=== PATIENT | female | born 1985 | race Hispanic/Latino ===

== ENCOUNTER 2022-06-15 20:53 | Emergency (ER) | payer SELFPAY ==
--- OUTSIDE RECORDS SUMMARY | 2022-06-15 20:58 | XMS REPORT | Continuity of Care Document ---
:1985 Author Organization Formerly [facility] t Address [address] [place] [address] Care Team Providers Name Role Phone Pcp, Patient Does Not Have A Primary Care Physician +[id number] Montez Egan MD Attending Clinician Jaylan WHITEHEAD, Haritha Dahl Attending Clinician Unavailable Only, Ang Db Test Attending Clinician Unavailable Shantel Castro Attending Clinician SHANTEL LEYVA Attending Clinician Unavailable Problems This patient has no known problems. Allergies, Adverse Reactions, Alerts Allergy Allergy Status Severity Reaction(s) Onset Inactive Treating Comm ents Source Name Type Date Date Clinician NO KNOWN Drug Active Univers ALLERGIE Class ity of [facility] Social History Social Habit Start Date Stop Date Quantity Comments Source Exposure to Yes [facility]2 [facility] Sex Assigned At [birth year] [facility] 00:00:00 00:00:00 [facility] Smoking Status Start Date Stop Date Source Unknown if ever smoked [facility] Medications This patient has no known medications. Procedures This patient has no known procedures. Encounters Start End Encounter Admission Attending Care Care Encounter Source Date/Time Date/Time Type Type Clinicians Facility Department ID 2021-07-15 2021-07-15 MARISABEL Hylton [id number] Univers 00:00:00 00:00:00 (Out) Montez ORLON [id number] i [facility] [id number] Donte as [phone] [address] 2021-07-15 2021-07-15 Letter Jignesh MARISABEL [id number] Univers 00:00:00 00:00:00 (Out) Montez Duke GONZALES [id number] i ty of [facility] [id number] Donte as [phone] [address] 2021-07-15 2021-07-15 Telephone MARISABEL Tian [id number] Univers 00:00:00 00:00:00 Haritha ROLON [id number] i ty of [facility] [id number] Donte as [id number] [address] 2021-07-14 2021-07-14 Laboratory Only, Ang Db Test [facility] 1.2.8 [id number] Univers 09:17:57 09:32:57 Only [id number] [facility] [id number] Donte as Abraham?Blea [phone] Fl abhay alarcon [address] [place] [address] Medical Office Building 2021-07-14 2021-07-14 Outpatient R GORDON [facility] [id number] Univers 09:30:00 09:30:00 SHANTEL [facility] Results This patient has no known results.
--- NOTE | 2022-06-15 21:59 | RAD REPORT ---
EXAM DESCRIPTION: RAD - Chest Single View - 06/15/2022 9:41 pm CLINICAL HISTORY: cough Chest pain. COMPARISON: No comparisons FINDINGS: Portable technique limits examination quality. The lungs are grossly clear. The heart is normal in size. No displaced fractures. IMPRESSION: No acute intrathoracic process suspected.
[2022-06-15 22:32] LABS: Urine Blood 1+ (Negative); Urine Glucose Negative (Negative); Urine Protein Negative (Negative)
[2022-06-15 22:40] LABS: Absolute Lymphocytes (CBC) 1.7 K/uL (0.7-4.9); Hematocrit 34.5 % (36.0-45.0); Lymphocytes % 28.5 % (15.3-44.8); MCV 85.7 fL (80-100); MPV 7.9 fL (7.6-11.3); RBC Red Blood Cell Count 4.02 M/uL (3.86-4.86)
[2022-06-15 22:54] LABS: ALT/SGPT 16 U/L (12-78); AST/SGOT 11 U/L (15-37); Albumin 3.5 g/dL (3.4-5.0); Alkaline Phosphatase 48 U/L (45-117); BUN Blood Urea Nitrogen 10 mg/dL (7-18); Bicarbonate 25 mmol/L (21-32); Bilirubin Total 0.2 mg/dL (0.2-1.0); Glomerular Filtration Rate 119 ml/min (=/>90); Glucose Level 115 mg/dL (74-106); Lipase 109 U/L (73-393); Potassium 3.3 mmol/L (3.5-5.1); Protein, Total 7.4 g/dL (6.4-8.2); Sodium Level 134 mmol/L (136-145); Troponin High Sensitivity 3.1 pg/mL (<58.9)
[2022-06-15 22:56] LABS: Bilirubin Direct < 0.1 mg/dL (0-0.2)
[2022-06-15 23:07] LABS: Urine Bacteria <20 /HPF (<20); Urine RBC <5 /HPF (None Seen)
[2022-06-15] MEDS ORDERED: MORPHINE 2 MG/ML SYR ONE (23:13)
[2022-06-15] MEDS ORDERED: ONDANSETRON 4 MG/2 ML VIAL ONE (23:14)
[2022-06-15] MEDS ORDERED: NA CHLORIDE 0.9% 1,000 ML ONE (23:14)
[2022-06-15] MEDS ORDERED: FAMOTIDINE 20 MG/2 ML VIAL IV ONE (23:14)
--- NOTE | 2022-06-16 07:20 | EKG ---
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
[2022-06-16 08:15] VITALS: TEMP 99.3; O2SAT 100
[2022-06-16 08:23] VITALS: BP 122/80
--- NOTE | 2022-06-16 10:39 | EDPHYS ---
Physician Documentation [facility] Name: Jennifer Stoddard Age: 36 yrs Sex: Female : 1985 Arrival Date: 06/15/2022 Time: 20:55 Bed 24 Private MD: ED Physician Norman Luther HPI: 06/15 21:42 This 36 yrs old Female presents to ER via Ambulatory with complaints of Breathing rn Difficulty, Fever, Headache. 21:42 The patient has shortness of breath at rest. Onset: The symptoms/episode began/occurred rn today. Duration: The symptoms are intermittent. 21:42 The patient's shortness of breath is aggravated by coughing. Associated signs and rn symptoms: Pertinent positives: non-productive cough, fever, Pertinent negatives: hemoptysis, loss of consciousness. Severity of symptoms: At their worst the symptoms were mild in the emergency department the symptoms are unchanged. The patient has not experienced similar symptoms in the past. The patient has not recently seen a physician. Pt reports thinks has COVID, has felt sick for 4 days, thought was getting better but feels SOB and more weakness today. No hemoptysis. Reports mother with COVID last week. NO hx of DVT/PE. No chronic lung problems. . 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 - Social history:: Smoking status: Patient denies any tobacco usage or history of. Patient/guardian denies using alcohol. - Family history:: not pertinent. - Hospitalizations: : No recent hospitalization is reported. 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 Eyes: Periorbital areas with no swelling, redness, or edema. Cardiovascular: Regular rate and rhythm. No pulse deficits. Respiratory: No increased work of breathing, no retractions or nasal flaring. Abdomen/GI: Soft, non-tender Skin: Warm, dry MS/ Extremity: Pulses equal, no cyanosis. Neuro: Awake and alert, GCS 15 22:20 ECG was reviewed by the Attending Physician. rn Vital Signs: 21:11 BP 136 / 92; Pulse 92; Resp 16; Temp 99.3(O); Pulse Ox 100% on R/A; Weight 58.97 kg; ld1 Height 5 ft. 4 in. (162.56 cm); Pain 10/10; 22:30 BP 123 / 93; Pulse 96; Resp 16; Pulse Ox 100% on R/A; jb4 06/16 00:00 BP 122 / 80; Pulse 81; Resp 16; Pulse Ox 100% on R/A; jb4 06/15 21:11 Body Mass Index 22.31 (58.97 kg, 162.56 cm) ld1 MDM: 06/15 21:03 Patient medically screened. rn 23:34 Differential diagnosis: Bronchitis pneumonia, Pneumothorax cholelithiasis, rn cholecystitis, viral syndrome, dehydration. Data reviewed: vital signs, nurses notes, lab test result(s), radiologic studies, plain films, ultrasound, and as a result, I will discharge patient. Counseling: I had a detailed discussion with the patient and/or guardian regarding: the historical points, exam findings, and any diagnostic results supporting the discharge/admit diagnosis, lab results, radiology results, the need for outpatient follow up, to return to the emergency department if symptoms worsen or persist or if there are any questions or concerns that arise at home. Response to treatment: the patient's symptoms have mildly improved after treatment, and as a result, I will discharge patient. Special discussion: Based on the patient's Hx, exam, and Dx evaluation, there is no indication for emergent surgery or inpatient Tx. It is understood by the patient/guardian that if the Sx's persist or worsen they need to return immediately for re-evaluation. I discussed with the patient/guardian in detail that at this point there is no indication for admission to the hospital. It is understood, however, that if the symptoms persist or worsen the patient needs to return immediately for re-evaluation. ED course: No acute findings on CXR or ultrasound. Normal WBC. Normal LFTs and lipase. COVID neg. Possibly gastritis vs ulcer vs GERD vs viral syndrome.. 06/15 21:10 Order name: SARS-COV-2 RT PCR (Document "Date of Onset" if Symptomatic) 06/15 22:32 Order name: Urine Dipstick-Ancillary; Complete Time: 22:36 [facility] 06/15 22:33 Order name: Basic Metabolic Panel; Complete Time: 23:05 [facility] 06/15 22:33 Order name: Liver (Hepatic) Function; Complete Time: 23:05 [facility] 06/15 22:33 Order name: Troponin High Sensitivity; Complete Time: 23:05 [facility] 06/15 22:33 Order name: Lipase; Complete Time: 23:05 [facility] 06/15 22:33 Order name: CBC with Automated Diff; Complete Time: 22:48 [facility] 06/15 22:33 Order name: SARS-COV-2 RT PCR; Complete Time: 23:34 [facility] 06/15 21:10 Order name: IV Start; Complete Time: 22:33 06/15 21:10 Order name: Urine Dipstick-Ancillary (obtain specimen); Complete Time: 22:33 06/15 21:10 Order name: Urine Test (obtain specimen); Complete Time: 22:33 06/15 21:10 Order name: EKG; Complete Time: 08:25 06/15 21:10 Order name: EKG - Nurse/Tech; Complete Time: 21:45 06/15 21:15 Order name: Chest Single View; Complete Time: 22:12 [facility] 06/15 22:34 Order name: Abdomen Exam Limited [facility] 06/15 22:35 Order name: Urine Microscopic Only; Complete Time: 23:34 [facility] 06/15 22:41 Order name: Urine --Ancillary (enter results) mw2 EC:20 Rate is 90 beats/min. Rhythm is regular. QRS Firth is Normal. OR interval is normal. QRS rn interval is normal. QT interval is normal. No Q waves. T waves are Normal. No ST changes noted. Clinical impression: Normal ECG. Interpreted by me. Reviewed by me. Administered Medications: 23:19 Drug: NS 0.9% 1000 ml Route: IV; Rate: 1000 ml; Site: right antecubital; jb4 06/16 00:20 Follow up: Response: No adverse reaction; Marked relief of symptoms; IV Status: jb4 Completed infusion 06/15 23:19 Drug: Pepcid (famotidine) 20 mg Route: IVP; Site: right antecubital; jb4 06/16 00:20 Follow up: Response: No adverse reaction; Marked relief of symptoms jb4 06/15 23:19 Drug: morphine 2 mg Route: IVP; Infused Over: 4 mins; Site: right antecubital; 4 06/16 00:20 Follow up: Response: No adverse reaction; Marked relief of symptoms; RASS: Alert and jb4 Calm (0) 06/15 23:19 Drug: Zofran (Ondansetron) 4 mg Route: IVP; Site: right antecubital; 4 06/16 00:20 Follow up: Response: No adverse reaction; Marked relief of symptoms jb4 Disposition Summary: 06/15/22 23:39 Discharge Ordered Location: Home rn Problem: new rn Symptoms: have improved rn Condition: Stable rn Diagnosis - Fever, unspecified rn - Abdominal pain, unspecified rn - Dyspnea, unspecified rn Followup: rn - With: Private Physician - When: As needed - Reason: Recheck today's complaints, Re-evaluation by your physician Discharge Instructions: - Discharge Summary Sheet rn - Abdominal Pain, Adult rn - Fever, Adult rn - Pain Without a Known Cause rn - Shortness of Breath, Adult rn Forms: - Medication Reconciliation Form rn - Thank You Letter rn - Antibiotic civil litigation attorney - Prescription Opioid Use rn Prescriptions: - ondansetron 4 mg Oral tablet,disintegrating - take 1 tablet by ORAL route every 8 hours As needed; 15 tablet; Refills: 0, rn Product Selection Permitted - Protonix 40 mg Oral Tablet - take 1 tablet by ORAL route once daily; 30 tablet; Refills: 0, Product rn Selection Permitted - Tramadol 50 mg Oral Tablet - take 1 tablet by ORAL route every 8 hours as needed; 12 tablet; Refills: 0, rn Product Selection Permitted Signatures: Dispatcher [employer] Norman Figueroa MD MD rn Bryson Quentin, RN RN jb4 Linsey Keys, RN RN ld1
--- NOTE | 2022-06-16 10:39 | ER ---
Nurse's Notes [facility] Name: Jennifer Stoddard Age: 36 yrs Sex: Female : 1985 Arrival Date: 06/15/2022 Time: 20:55 Bed 24 Private MD: Diagnosis: Fever, unspecified;Abdominal pain, unspecified;Dyspnea, unspecified Presentation: 06/15 21:11 Chief complaint: Chief complaint: Patient states: Mid epigastric pain since this ld1 morning. Headache, fever, nausea, SOB. 21:11 Coronavirus screen: Client presents with at least one sign or symptom that may indicate ld1 coronavirus-19. Standard/surgical mask placed on the client. Ebola Screen: No symptoms or risks identified at this time. Initial Sepsis Screen: Does the patient meet any 2 criteria? No. Patient's initial sepsis screen is negative. Does the patient have a suspected source of infection? No. Patient's initial sepsis screen is negative. Risk Assessment: Do you want to hurt yourself or someone else? Patient reports no desire to harm self or others. Onset of symptoms was June 15, 2022 at 21:12. 21:11 Method Of Arrival: Ambulatory ld1 21:11 Acuity: ANIVAL 3 ld1 Triage Assessment: 21:12 General: Appears in no apparent distress. uncomfortable, Behavior is calm, cooperative, ld1 appropriate for age. Pain: Complains of pain in epigastric area Pain does not radiate. Pain currently is 10 out of 10 on a pain scale. EENT: No signs and/or symptoms were reported regarding the EENT system. Neuro: Level of Consciousness is awake, alert, obeys commands, Oriented to person, place, time, situation, Appropriate for age. Cardiovascular: Capillary refill < 3 seconds Patient's skin is warm and dry. Respiratory: Reports shortness of breath at rest on exertion Airway is patent Respiratory effort is even, unlabored, Onset: The symptoms/episode began/occurred today, the patient has mild shortness of breath. GI: Abdomen is flat, non-distended. : No signs and/or symptoms were reported regarding the genitourinary system. Derm: No signs and/or symptoms reported regarding the dermatologic system. Musculoskeletal: No signs and/or symptoms reported regarding the musculoskeletal system. 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 - Social history:: Smoking status: Patient denies any tobacco usage or history of. Patient/guardian denies using alcohol. - Family history:: not pertinent. - Hospitalizations: : No recent hospitalization is reported. Screenin:17 Abuse screen: Denies threats or abuse. Nutritional screening: No deficits noted. jb4 Tuberculosis screening: No symptoms or risk factors identified. Fall Risk None identified. Assessment: 22:17 General: Appears in no apparent distress. uncomfortable, Behavior is calm, cooperative, jb4 appropriate for age. Pain: Complains of pain in epigastric area Pain radiates to anterior aspect of left upper chest Pain currently is 10 out of 10 on a pain scale. Neuro: Level of Consciousness is awake, alert, obeys commands, Oriented to person, place, time, situation. Cardiovascular: Patient's skin is warm and dry. Rhythm is sinus rhythm. Respiratory: Airway is patent Respiratory effort is even, unlabored, Respiratory pattern is regular, symmetrical. GI: Pt is actively vomiting Stomach contents are bright red. Provider notified. Reports upper abdominal pain. Derm: Skin is intact, Skin is pink, warm \T\ dry. Musculoskeletal: Circulation, motion, and sensation intact. Range of motion: intact in all extremities. 23:19 Reassessment: Patient appears in no apparent distress at this time. Patient and/or jb4 family updated on plan of care and expected duration. Pain level reassessed. Patient is alert, oriented x 3, equal unlabored respirations, skin warm/dry/pink. 06/16 00:03 Reassessment: Patient appears in no apparent distress at this time. Patient and/or jb4 family updated on plan of care and expected duration. Pain level reassessed. Patient is alert, oriented x 3, equal unlabored respirations, skin warm/dry/pink. D/c pending completion of IV fluilds. 00:18 Reassessment: Patient appears in no apparent distress at this time. Patient and/or jb4 family updated on plan of care and expected duration. Pain level reassessed. Patient is alert, oriented x 3, equal unlabored respirations, skin warm/dry/pink. Pt reports that the pain is better and the nausea has also improved. Vital Signs: 06/15 21:11 BP 136 / 92; Pulse 92; Resp 16; Temp 99.3(O); Pulse Ox 100% on R/A; Weight 58.97 kg; ld1 Height 5 ft. 4 in. (162.56 cm); Pain 10/10; 22:30 BP 123 / 93; Pulse 96; Resp 16; Pulse Ox 100% on R/A; jb4 06/16 00:00 BP 122 / 80; Pulse 81; Resp 16; Pulse Ox 100% on R/A; jb4 06/15 21:11 Body Mass Index 22.31 (58.97 kg, 162.56 cm) ld1 ED Course: 06/15 20:55 Patient arrived in ED. ag3 21:03 Norman Luther MD is Attending Physician. rn 21:12 Triage completed. ld1 21:12 Arm band placed on right wrist. ld1 21:29 Quentin Singleton, RN is Primary Nurse. jb4 21:43 Chest Single View In Process Unspecified. EDMS 22:17 Patient has correct armband on for positive identification. Bed in low position. Call jb4 light in reach. Side rails up X 1. Client placed on continuous cardiac and pulse oximetry monitoring. NIBP monitoring applied. playground monitor on. 22:17 Initial lab(s) drawn, by co, sent to lab. Urine collected: clean catch specimen, clear. jb4 Inserted saline lock: 20 gauge in right antecubital area, using aseptic technique. Blood collected. 22:50 Abdomen Exam Limited In Process Unspecified. EDMS 08 00:19 No provider procedures requiring assistance completed. IV discontinued, intact, jb4 bleeding controlled, No redness/swelling at site. Pressure dressing applied. Administered Medications: 06/15 23:19 Drug: NS 0.9% 1000 ml Route: IV; Rate: 1000 ml; Site: right antecubital; jb4 06/16 00:20 Follow up: Response: No adverse reaction; Marked relief of symptoms; IV Status: jb4 Completed infusion 06/15 23:19 Drug: Pepcid (famotidine) 20 mg Route: IVP; Site: right antecubital; jb4 06/16 00:20 Follow up: Response: No adverse reaction; Marked relief of symptoms jb4 06/15 23:19 Drug: morphine 2 mg Route: IVP; Infused Over: 4 mins; Site: right antecubital; jb4 06/16 00:20 Follow up: Response: No adverse reaction; Marked relief of symptoms; RASS: Alert and jb4 Calm (0) 06/15 23:19 Drug: Zofran (Ondansetron) 4 mg Route: IVP; Site: right antecubital; jb4 06/16 00:20 Follow up: Response: No adverse reaction; Marked relief of symptoms jb4 Medication: 00:00 VIS not applicable for this client. jb4 Outcome: 06/15 23:39 Discharge ordered by . rn 06/16 00:19 Discharged to home ambulatory. jb4 Condition: stable Discharge instructions given to patient, Instructed on discharge instructions, follow up and referral plans. medication usage, Demonstrated understanding of instructions, follow-up care, medications, Prescriptions given X 3. 00:20 Patient left the ED. jb4 Signatures: Dispatcher [employer] EDMS Norman Luther MD MD rn Bryson, James, RN RN jb4 Izzy Shukla 3 Linsey Keys RN RN ld1 Corrections: (The following items were deleted from the chart) 06/15 21:12 21:11 Chief complaint: ld1 ld1
--- NOTE | 2022-06-16 14:24 | RAD REPORT ---
EXAM DESCRIPTION: US - Abdomen Exam Limited CLINICAL HISTORY: 36 years Female gallbladder COMPARISON: No prior exams provided for comparison. TECHNIQUE: Real-time and rose scale sonographic imaging of the right upper quadrant was performed. FINDINGS: The gallbladder is normal without gallstones, wall thickening, or pericholecystic fluid. N o sonographic Hendrix's sign was elicited during scanning. The common bile duct is within normal limit s, measuring 3.5 mm in diameter. There is no intrahepatic biliary ductal dilatation. Visualized portions of the liver are normal. IMPRESSION: No evidence of cholecystitis or biliary dilatation. Electronically signed by: Barbara Cavanaugh MD 06/15/2022 11:09 PM CDT Due to temporary technical issues with the PACS/Fluency reporting system, reports are being signed by the in house radiologists without review as a courtesy to insure prompt reporting. The interpreting radiologist is fully responsible for the content of the report.
== END 2022-06-16 00:20 | disposition home or self-care (01) ==
LOC: ER 20:53
DX: R06.00 Dyspnea, unspecified (principal); R50.9 Fever, unspecified; R10.9 Unspecified abdominal pain; Z20.822 Contact with and (suspected) exposure to COVID-19; Z88.2 Allergy status to sulfonamides
CPT/HCPCS: 36415; 71045; 76705; 80048; 80076; 81003; 81015; 81025; 83690; 84484; 85025; 93005; 96361; 96374; 96375; 99284; J2270; J2405; J7030; U0003

== ENCOUNTER 2022-06-16 16:21 | Emergency (ER) | payer SELFPAY ==
--- OUTSIDE RECORDS SUMMARY | 2022-06-16 16:24 | XMS REPORT | Continuity of Care Document ---
:1985 Author Organization [facility] t Address [address] [place] [address] Care Team Providers Name Role Phone Pcp, [...] Drug Active Univers ALLERGIE Class ity of [facility] Social History Social Habit Start Date Stop Date Quantity Comments Source Exposure to Yes [facility] SARS-CoV-2 (event) [facility] Sex Assigned At [birth year] [facility] 00:00:00 00:00:00 [facility] Smoking Status Start Date Stop Date Source Unknown if ever smoked [facility] Medications This patient has no known medications. Procedures This patient has no known procedures. Encounters Start End Encounter Admission Attending Care Care Encounter Source Date/Time Date/Time Type Type Clinicians Facility Department ID 2021-07-15 2021-07-15 MARISABEL Hylton [id number] Univers 00:00:00 00:00:00 (Out) Montez ROLON [id number] i [facility] [id number] Donte as [phone] [place] [address] [address] 2021-07-15 2021-07-15 Letter Jignesh MARISABEL [id number] Univers 00:00:00 00:00:00 (Out) Montez H GONZALES [id number] i ty of [facility] [id number] Donte as [id number] [address] 2021-07-15 2021-07-15 Telephone Jaylan MARISABEL [id number] Univers 00:00:00 00:00:00 Haritha ROLON [id number] i ty of [facility] [id number] Donte as [id number] [address] 2021-07-14 2021-07-14 Laboratory Only, Ang Db Test [facility] 1.2.8 [id number] [id number] Univers 09:17:57 09:32:57 Only Gordon Shantel [id number] [facility] [id number] Donte as Abraham?Blea [phone] Ca abhay alarcon [address] [place] [address] Medical Office Building 2021-07-14 2021-07-14 Outpatient R GORDON [facility] [id number] Univers 09:30:00 09:30:00 SHANTEL [facility] Results This patient has no known results.
[2022-06-16 17:44] LABS: Absolute Lymphocytes (CBC) 1.7 K/uL (0.7-4.9); Hematocrit 36.8 % (36.0-45.0); Lymphocytes % 25.3 % (15.3-44.8); MCV 86.1 fL (80-100); MPV 8.3 fL (7.6-11.3); RBC Red Blood Cell Count 4.28 M/uL (3.86-4.86)
[2022-06-16] MEDS ORDERED: NA CHLORIDE 0.9% 1,000 ML ONE (17:45)
[2022-06-16] MEDS ORDERED: ONDANSETRON 4 MG/2 ML VIAL ONE (17:45)
[2022-06-16] MEDS ORDERED: KETOROLAC 30 MG/ML INJ ONE (17:45)
[2022-06-16 18:03] LABS: Bilirubin Total 0.3 mg/dL (0.2-1.0); Potassium 3.4 mmol/L (3.5-5.1); Protein, Total 8.2 g/dL (6.4-8.2)
--- NOTE | 2022-06-16 18:35 | RAD REPORT ---
EXAM DESCRIPTION: CT - Abdomen Pelvis W Contrast - 06/16/2022 6:22 pm CLINICAL HISTORY: abd pain COMPARISON: Abdomen Exam Limited dated 06/15/2022 TECHNIQUE: Biphasic, helical CT imaging of the abdomen and pelvis was performed following 100 ml non -ionic IV contrast. No oral contrast was administered. All CT scans are performed using dose optimization technique as appropriate and may include automated exposure control or mA/KV adjustment according to patient size. FINDINGS: No suspicious findings in the lung bases. In the posterior subcapsular liver there is a 10 mm oval low-density mass. Cysts is favor but this is not fully characterized. Significance is doubtful. Parenchyma is otherwise unremarkable. No portal v ein abnormality. Spleen and pancreas show no suspicious findings. Gallbladder and biliary tree are al so without suspicious finding. Symmetric renal function is seen with no hydronephrosis or suspicious renal mass. No pyelonephritis o r acute parenchymal process. No bladder abnormalities. No adrenal abnormalities. Uterus and ovaries show no suspicious findings. There is a partially collapsed 16 millimeter right ov vlad cyst. No dilated bowel loops or bowel wall thickening. Appendix is normal. Trace free fluid in the cul de s ac and right adnexal well within normal limits. No free air or pneumatosis. No hernia, mass or bulky lymphadenopathy. No suspicious bony findings. IMPRESSION: Contrast enhanced CT abdomen and pelvis showing no acute or emergent finding. Nonacute findings detailed in the body of the report.
[2022-06-16] MEDS ORDERED: MORPHINE 4 MG/ML SYR ONE (18:43)
--- NOTE | 2022-06-16 19:38 | EDPHYS ---
Physician Documentation [facility] Name: Jennifer Stoddard Age: 36 yrs Sex: Female : 1985 Arrival Date: 06/16/2022 Time: 16:25 Bed 12 Private MD: ED Physician Chan Vargas HPI: 06/17 00:49 This 36 yrs old Female presents to ER via Ambulatory with complaints of kb Abdominal Pain. 00:49 The patient presents with abdominal pain in the upper abdomen. Onset: The kb symptoms/episode began/occurred 4 day(s) ago. The symptoms do not radiate. Associated signs and symptoms: Pertinent positives: nausea, vomiting, and diarrhea, Pertinent negatives: fever. The symptoms are described as constant. Modifying factors: The symptoms are alleviated by nothing, the symptoms are aggravated by nothing. Severity of pain: At its worst the pain was moderate in the emergency department the pain is unchanged. The patient has not experienced similar symptoms in the past. The patient has been recently seen at the [facility] Emergency Department, yesterday. Patient reports abdominal pain, nausea, vomiting, diarrhea that started 4 days ago. Was seen yesterday here, had labs, ultrasound done with no acute findings. Returns today for continued symptoms.. 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 - Social history:: Smoking status: . ROS: 06/17 00:48 Constitutional: Negative for fever, chills, and weight loss. kb Abdomen/GI: Positive for abdominal pain, nausea, vomiting, and diarrhea. All other systems are negative. Exam: 00:48 Constitutional: This is a well developed, well nourished patient who is awake, alert, kb and in no acute distress. Head/Face: Normocephalic, atraumatic. ENT: Moist Mucous membranes Cardiovascular: Regular rate and rhythm with a normal S1 and S2. No gallops, murmurs, or rubs. No pulse deficits. Respiratory: Respirations even and unlabored. No increased work of breathing. Talking in full sentences Skin: Warm, dry with normal turgor. Normal color. MS/ Extremity: Pulses equal, no cyanosis. Neurovascular intact. Full, normal range of motion. Neuro: Awake and alert, GCS 15, oriented to person, place, time, and situation. Moves all extremities. Normal gait. Psych: Awake, alert, with orientation to person, place and time. Behavior, mood, and affect are within normal limits. 00:48 Abdomen/GI: Inspection: abdomen appears normal, Bowel sounds: normal, Palpation: soft, in all quadrants, mild abdominal tenderness, in the right upper quadrant and left upper quadrant. Vital Signs: 06/16 16:32 BP 119 / 93; Pulse 87; Resp 17; Temp 99.6(TE); Pulse Ox 100% on R/A; tw2 17:12 BP 119 / 85; Pulse 84; Resp 17 S; Pulse Ox 99% on R/A; Pain 10/10; ha1 18:35 BP 108 / 84; Pulse 87; Resp 14 S; Pulse Ox 100% on R/A; Pain 10/10; ha1 19:09 BP 112 / 80; Pulse 82; Resp 14 S; Pulse Ox 100% on R/A; Pain 5/10; ha1 19:58 BP 114 / 78; Pulse 81; Pulse Ox 100% ; Pain 5/10; tw5 MDM: 16:32 Patient medically screened. kb 19:36 Data reviewed: vital signs, nurses notes. Data interpreted: Pulse oximetry: on room air kb is 100 %. Interpretation: normal. Counseling: I had a detailed discussion with the patient and/or guardian regarding: the historical points, exam findings, and any diagnostic results supporting the discharge/admit diagnosis, lab results, radiology results, the need for outpatient follow up, a clinical support manager, to return to the emergency department if symptoms worsen or persist or if there are any questions or concerns that arise at home. ED course: Pt states she is feeling better. Educated to follow up with GI for further evaluation if symptoms persist. Verbal understanding received. . 06/16 16:36 Order name: CBC with Diff; Complete Time: 17:50 kb 06/16 16:36 Order name: CMP; Complete Time: 18:08 kb 06/16 16:36 Order name: Lipase; Complete Time: 18:08 kb 06/16 16:36 Order name: CT Abd/Pelvis - IV Contrast Only; Complete Time: 18:54 kb 06/16 16:36 Order name: IV Saline Lock; Complete Time: 17:32 kb 06/16 16:36 Order name: Labs collected and sent; Complete Time: 17:32 kb Administered Medications: 17:53 Drug: Ketorolac 15 mg Route: IVP; Site: right antecubital; ha1 18:20 Follow up: Response: No adverse reaction; Pain is unchanged, physician notified ha1 17:54 Drug: Zofran (Ondansetron) 4 mg Route: IVP; Site: right antecubital; ha1 18:20 Follow up: Response: No adverse reaction; Nausea is decreased ha1 17:54 Drug: NS 0.9% 1000 ml Route: IV; Rate: 1000 ml; Site: right antecubital; ha1 20:00 Follow up: Response: No adverse reaction; IV Status: Completed infusion; IV Intake: tw5 1000ml 18:38 Drug: morphine 4 mg Route: IVP; Infused Over: 4 mins; Site: right antecubital; ha1 19:05 Follow up: Response: No adverse reaction; Pain is increased; RASS: Alert and Calm (0) ha1 19:58 Drug: Pepcid (famotidine) 20 mg Route: IVP; Site: right antecubital; tw5 19:58 Follow up: Response: No adverse reaction; Medication administered at discharge. tw5 Disposition Summary: 06/16/22 19:38 Discharge Ordered Location: Home kb Condition: Stable kb Diagnosis - Upper abdominal pain, unspecified kb - Nausea with vomiting, unspecified kb Followup: kb - With: Emergency Department - When: As needed - Reason: Worsening of condition Followup: kb - With: Private Physician - When: 2 - 3 days - Reason: Recheck today's complaints, Continuance of care, Re-evaluation by your physician Discharge Instructions: - Discharge Summary Sheet kb - Nausea and Vomiting, Adult, [id number] kb - Abdominal Pain, Adult, [id number] kb Forms: - Medication Reconciliation Form kb - Thank You Letter kb - Antibiotic Education kb - Prescription Opioid Use kb Signatures: Dispatcher [employer] EDInna Valverde, MARKUS-C DAM WORKER-Loyda Pacheco RN RN tw2 Suzie Vasquez tw5 Justine Myers, RN RN ha1
--- NOTE | 2022-06-16 19:38 | ER ---
Nurse's Notes [facility] Name: Jennifer Stoddard Age: 36 yrs Sex: Female : 1985 Arrival Date: 06/16/2022 Time: 16:25 Bed 12 Private MD: Diagnosis: Upper abdominal pain, unspecified;Nausea with vomiting, unspecified Presentation: 06/16 16:32 Chief complaint: Patient states: for 4 days +n/v/d. yesterday i came here yesterday too tw2 for the same thing. the pain has started over again. Coronavirus screen: nausea, Client presents with at least one sign or symptom that may indicate coronavirus-19. Standard/surgical mask placed on the client. Provider contacted for isolation considerations. Ebola Screen: Patient denies travel to an Ebola-affected area in the 21 days before illness onset. Initial Sepsis Screen: Does the patient meet any 2 criteria? No. Patient's initial sepsis screen is negative. Does the patient have a suspected source of infection? No. Patient's initial sepsis screen is negative. Risk Assessment: Do you want to hurt yourself or someone else? Patient reports no desire to harm self or others. Note provider MARKUS Pacheco in triage room performing assessment at this time. Onset of symptoms was June 16, 2022. 16:32 Method Of Arrival: Ambulatory tw2 16:32 Acuity: ANIVAL 3 tw2 16:35 Chief complaint: Patient states: i took antibiotic for 3 days now i have an infection tw2 in my urine and in my vagina. it is vancomycin and acyclovir. Triage Assessment: 16:34 General: Appears uncomfortable, slender, well groomed, Behavior is calm, cooperative, tw2 appropriate for age. Pain: Complains of pain in abdomen. GI: Reports lower abdominal pain, diarrhea, nausea, vomiting. 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 - Social history:: Smoking status: . Screenin:17 Abuse screen: Denies threats or abuse. Nutritional screening: No deficits noted. tw2 Tuberculosis screening: No symptoms or risk factors identified. Fall Risk None identified. Assessment: 17:12 General: Appears ill, Behavior is calm, cooperative, Reports mid epigastric pain that ha1 radiates to the left side of the upper abdominal quadrant. 17:12 Pain: Complains of pain in epigastric area Pain radiates to left upper quadrant Pain at ha1 worst was 10 out of 10 on a pain scale. Quality of pain is described as crampy, pressure, throbbing, Pain began two days ago Is intermittent, Alleviated by medications, Aggravated by eating, Noted to be guarding, abdomen Also complains of nausea. 17:12 Neuro: Level of Consciousness is awake, alert, obeys commands, Oriented to person, ha1 place, time, situation. 17:12 Cardiovascular: Heart tones S1 S2 present Capillary refill < 3 seconds Pulses are all ha1 present. Respiratory: Airway is patent Respiratory effort is even, unlabored, Respiratory pattern is regular, symmetrical. GI: Bowel sounds present X 4 quads. Abd is soft and non tender X 4 quads. Reports diarrhea, nausea, for the past two days. : Urine is clear, Reports urinary frequency, was diagnosed with an UTI and vaginal infection by primary care on Tuesday. meds were prescribed and s/s have been alleviated. EENT: No signs and/or symptoms were reported regarding the EENT system. Derm: Skin is intact, is healthy with good turgor, Skin is pink, warm \T\ dry. Musculoskeletal: Capillary refill < 3 seconds, Range of motion: intact in all extremities. 18:30 Reassessment: Patient is alert, oriented x 3, equal unlabored respirations, skin ha1 warm/dry/pink. pain 10/10. notified primary care provider. meds were ordered and administered'. 19:11 Reassessment: Patient and/or family updated on plan of care and expected duration. Pain ha1 level reassessed. stated that pain and nausea has been decreased Patient states feeling better. 19:58 Reassessment: Patient states feeling better. Patient states symptoms have improved. tw5 Pain: Pain currently is 5 out of 10 on a pain scale. Vital Signs: 16:32 BP 119 / 93; Pulse 87; Resp 17; Temp 99.6(TE); Pulse Ox 100% on R/A; tw2 17:12 BP 119 / 85; Pulse 84; Resp 17 S; Pulse Ox 99% on R/A; Pain 10/10; ha1 18:35 BP 108 / 84; Pulse 87; Resp 14 S; Pulse Ox 100% on R/A; Pain 10/10; ha1 19:09 BP 112 / 80; Pulse 82; Resp 14 S; Pulse Ox 100% on R/A; Pain 5/10; ha1 19:58 BP 114 / 78; Pulse 81; Pulse Ox 100% ; Pain 5/10; tw5 ED Course: 16:25 Patient arrived in ED. rg4 16:32 Inna Trinh, [facility] kb 16:32 Chan Vargas MD is Attending Physician. kb 16:34 Triage completed. tw2 16:34 Arm band placed on. tw2 17:11 Bed in low position. Call light in reach. Pulse ox on. NIBP on. Warm blanket given. tw2 17:16 Inserted saline lock: 20 gauge in right antecubital area, using aseptic technique. ha1 17:25 Warm blanket given. ha1 17:31 Justine Myers, RN is Primary Nurse. ha1 18:24 CT Abd/Pelvis - IV Contrast Only In Process Unspecified. EDMS 19:58 No provider procedures requiring assistance completed. IV discontinued, intact, tw5 bleeding controlled, No redness/swelling at site. Pressure dressing applied. Administered Medications: 17:53 Drug: Ketorolac 15 mg Route: IVP; Site: right antecubital; ha1 18:20 Follow up: Response: No adverse reaction; Pain is unchanged, physician notified ha1 17:54 Drug: Zofran (Ondansetron) 4 mg Route: IVP; Site: right antecubital; ha1 18:20 Follow up: Response: No adverse reaction; Nausea is decreased ha1 17:54 Drug: NS 0.9% 1000 ml Route: IV; Rate: 1000 ml; Site: right antecubital; ha1 20:00 Follow up: Response: No adverse reaction; IV Status: Completed infusion; IV Intake: tw5 1000ml 18:38 Drug: morphine 4 mg Route: IVP; Infused Over: 4 mins; Site: right antecubital; ha1 19:05 Follow up: Response: No adverse reaction; Pain is increased; RASS: Alert and Calm (0) ha1 19:58 Drug: Pepcid (famotidine) 20 mg Route: IVP; Site: right antecubital; tw5 19:58 Follow up: Response: No adverse reaction; Medication administered at discharge. tw5 Medication: 17:18 VIS not applicable for this client. tw2 Intake: 20:00 IV: 1000ml; Total: 1000ml. 5 Outcome: 19:38 Discharge ordered by MD. pedro 19:58 Discharged to home ambulatory. tw5 19:58 Condition: improved 19:58 Discharge instructions given to patient, Instructed on discharge instructions, follow up and referral plans. Demonstrated understanding of instructions, follow-up care. 19:59 Patient left the ED. Signatures: Dispatcher [employer] EDInna Valverde, COILER OPERATOR-C COILER OPERATOR-Loyda Pacheco RN RN tw2 Dianne Tian4 Suzie Vasquez tw5 Justine Myers RN RN ha1
[2022-06-16] MEDS ORDERED: FAMOTIDINE 20 MG/2 ML VIAL IV ONE (19:58)
[2022-06-16 20:15] VITALS: TEMP 99.6
[2022-06-16 20:21] VITALS: O2SAT 100
[2022-06-16 20:25] VITALS: BP 114/78
== END 2022-06-16 19:59 | disposition home or self-care (01) ==
LOC: ER 16:21
DX: R11.2 Nausea with vomiting, unspecified (principal); R10.10 Upper abdominal pain, unspecified; Z88.2 Allergy status to sulfonamides; Z20.822 Contact with and (suspected) exposure to COVID-19
CPT/HCPCS: 36415; 74177; 80053; 83690; 85025; J2405; J7030; Q9967

== ENCOUNTER 2022-06-18 16:01 | Inpatient (IN) | payer SELFPAY ==
--- OUTSIDE RECORDS SUMMARY | 2022-06-18 16:03 | XMS REPORT | Continuity of Care Document ---
:1985 Author Organization [facility] t Address [address] [place] [address] Care Team Providers Name Role Phone Pcp, Patient Does Not Have A Primary Care Physician +[id number] Jignesh SHARP, Montez Duke Attending Clinician Jaylan RN, Haritha Dahl Attending Clinician Unavailable Only, Ang Db Test Attending Clinician Unavailable Shantel Castro Attending Clinician SHANTEL LEYVA Attending Clinician Unavailable Problems This patient has no known problems. Allergies, Adverse Reactions, Alerts Allergy Allergy Status Severity Reaction(s) Onset Inactive Treating Comm ents Source Name Type Date Date Clinician NO KNOWN Drug Active [facility] Social History Social Habit Start Date Stop Date Quantity Comments Source Exposure to Yes [facility] SARS-CoV-2 (event) [facility] Sex Assigned At [birth year] [facility] 00:00:00 00:00:[address] [facility] Smoking Status Start Date Stop Date Source Unknown if ever smoked [facility] Medications This patient has no known medications. Procedures This patient has no known procedures. Encounters Start End Encounter Admission Attending Care Care Encounter Source Date/Time Date/Time Type Type Clinicians Facility Department ID 2021-07-15 2021-07-15 MARISABEL Hylton [id number] [facility] 00:00:00 00:00:00 (Out) Montez RLOON [id number] i [facility] [id number] Donte as [id number] [address] 2021-07-15 2021-07-15 Letter Jignesh MARISABEL [id number] Univers 00:00:00 00:00:00 (Out) Montez Duke GONZALES [id number] [facility] [id number] Donte as [id number] [address] 2021-07-15 2021-07-15 Telephone MARISABEL Tian [id number] [facility] 00:00:00 00:00:00 Harithagabino ROLON [id number] [facility] [id number] Donte as [id number] [address] 2021-07-14 2021-07-14 Laboratory Only, Ang Db Test [facility] [id number] Univers 09:17:57 09:32:57 Only [id number] [id number] Donte as Abraham?Blea [id number] Hi abhay [address] [facility] 2021-07-14 2021-07-[address] [facility] [id number] [facility] 09:30:00 09:30:00 SHANTEL [facility] Results This patient has no known results.
[2022-06-18 17:47] LABS: Potassium 3.5 mmol/L (3.5-5.1)
[2022-06-18 17:54] LABS: Absolute Lymphocytes (CBC) 2.5 K/uL (0.7-4.9); Hematocrit 33.9 % (36.0-45.0); Lymphocytes % 27.3 % (15.3-44.8); MCV 84.9 fL (80-100); MPV 8.3 fL (7.6-11.3); RBC Red Blood Cell Count 3.99 M/uL (3.86-4.86)
[2022-06-18 18:31] LABS: Urine Blood Negative (Negative); Urine Glucose Negative (Negative); Urine Protein Negative (Negative); Urine Specific Gravity >=1.030 (1.005-1.030)
[2022-06-18 18:43] LABS: Urine Bacteria <20 /HPF (<20)
[2022-06-18 18:44] LABS: Urine Mucus 2+ /HPF (None Seen)
--- NOTE | 2022-06-18 19:02 | ER ---
Nurse's Notes [facility] Name: Jennifer Stoddard Age: 36 yrs Sex: Female : 1985 Arrival Date: 06/18/2022 Time: 16:04 Bed 19 Private MD: Diagnosis: Upper abdominal pain, unspecified;Nausea with vomiting, unspecified;Dehydration Presentation: 06/18 16:48 Chief complaint: EMS states: they were called to the patients house with complaints of ap3 abdominal pain. patient states she has been being treated for a UTI with antibiotics, but started having abdominal pain with nausea and diarrhea. Patient states she continues to have painful urination and her urine has a foul odor. Coronavirus screen: At this time, the client does not indicate any symptoms associated with coronavirus-19. Ebola Screen: No symptoms or risks identified at this time. Initial Sepsis Screen: Does the patient meet any 2 criteria? HR > 90 bpm. Does the patient have a suspected source of infection? Yes: Dysuria/Frequency/Urgency/UTI. Risk Assessment: Do you want to hurt yourself or someone else? Patient reports no desire to harm self or others. Onset of symptoms is unknown. 16:48 Method Of Arrival: EMS: [facility] ap3 16:48 Acuity: ANIVAL 3 ap3 16:51 Care prior to arrival: Medication(s) given: Normal saline infusion, 1000 mL, 15mg ap3 Toradol at 1551 IV initiated. 20 GA, in the right antecubital area. Triage Assessment: 16:50 General: Appears uncomfortable, ill, Behavior is calm, cooperative. Pain: Complains of ap3 pain in abdomen Pain began gradually, over the last 5 days. Neuro: Level of Consciousness is awake, alert, obeys commands, Oriented to person, place, time, situation, Speech is normal. Cardiovascular: Patient's skin is warm and dry. Respiratory: Airway is patent Respiratory effort is even, unlabored, Respiratory pattern is regular, symmetrical. : Reports pain with urination, urinary frequency. 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 - Social history:: Smoking status: Patient denies any tobacco usage or history of. Screenin:52 Abuse screen: Denies threats or abuse. Nutritional screening: No deficits noted. ap3 Tuberculosis screening: No symptoms or risk factors identified. 18:05 Fall Risk None identified. hb Assessment: 18:05 General: Appears in no apparent distress. ill, Behavior is calm, cooperative. Pain: hb Pain currently is 8 out of 10 on a pain scale. Neuro: Level of Consciousness is awake, alert, obeys commands, Oriented to person, place, time, situation. Cardiovascular: Patient's skin is warm and dry. Respiratory: Respiratory effort is even, unlabored, Respiratory pattern is regular, symmetrical. GI: Reports upper abdominal pain. : Reports burning with urination. EENT: No signs and/or symptoms were reported regarding the EENT system. Derm: Skin is pink, warm \T\ dry. 19:00 Reassessment: Patient appears in no apparent distress at this time. Patient and/or hb family updated on plan of care and expected duration. Pain level reassessed. Patient is alert, oriented x 3, equal unlabored respirations, skin warm/dry/pink. 20:20 Reassessment: Pt up for discharge, c/o upper abdominal pain 10/10, unchanged by hb medication. Dr. Harris notified. 22:09 Reassessment: Patient appears in no apparent distress at this time. Patient and/or hb family updated on plan of care and expected duration. Pain level reassessed. Patient is alert, oriented x 3, equal unlabored respirations, skin warm/dry/pink. 06/19 17:39 Reassessment: attempted to call report. vg1 Vital Signs: 06/18 16:48 BP 127 / 87; Pulse 98; Resp 18; Temp 98.9; Pulse Ox 100% ; Weight 56.7 kg; Height 5 ft. ap3 (152.40 cm); 18:30 BP 124 / 80; Pulse 92; Resp 17; Pulse Ox 99% ; hb 20:15 BP 120 / 76; Pulse 89; Resp 15; Pulse Ox 99% on R/A; Pain 10/10; hb 22:09 BP 108 / 73; Pulse 92; Resp 16; Pulse Ox 99% ; hb 16:48 Body Mass Index 24.41 (56.70 kg, 152.40 cm) ap3 ED Course: 16:04 Patient arrived in ED. iw 16:50 Triage completed. ap3 16:51 Arm band placed on right wrist. ap3 17:00 Mukund Soto is PHCP. jl9 17:00 Celso Dolan MD is Attending Physician. jl9 17:28 CBC with Diff Sent. kc6 17:28 BMP Sent. kc6 18:03 Gricel Martini RN is Primary Nurse. hb 18:05 Patient has correct armband on for positive identification. hb 20:44 Freedom Luther MD is Hospitalizing Provider. [facility] 20:57 Attending Physician role handed off by Celso Dolan MD [facility] 20:57 Obdulio Harris MD is Attending Physician. [facility] 06/19 18:07 No provider procedures requiring assistance completed. Patient admitted, IV remains in tp1 place. Administered Medications: 06/18 19:24 Drug: GI Cocktail without - (Maalox Suspension 30 ml, Lidocaine Liquid 2 % 15 ll3 ml) Route: PO; 21:06 Follow up: Response: No adverse reaction hb 19:24 Drug: Ondansetron 4 mg Route: IVP; Site: right antecubital; ll3 21:06 Follow up: Response: No adverse reaction hb 19:24 Drug: Famotidine 20 mg Route: IVP; Site: right antecubital; ll3 21:06 Follow up: Response: No adverse reaction hb 21:06 Drug: D5-NS 1000 ml Route: IV; Rate: bolus; Site: right antecubital; hb 21:06 Drug: morphine 4 mg Route: IVP; Infused Over: 4 mins; Site: right antecubital; hb 21:06 Drug: Phenergan (promethazine) 12.5 mg Route: IVP; Site: right antecubital; hb Medication: 18:05 VIS not applicable for this client. hb Outcome: 19:02 Discharge ordered by . jl9 20:45 Decision to Hospitalize by Provider. [facility] 06/19 18:06 Admitted to Tele accompanied by tech, via wheelchair, room 221, with chart, Report tp1 called to VENTURA Cook Condition: good Instructed on the need for admit. 18:10 Patient left the ED. vg1 Signatures: Jolynn Valadez, RN RN iw Gricel Martini RN RN hb Rere Vera RN RN ap3 Rema Tian RN RN vg1 Obdulio Harris MD MD 7 Muriel Rachel RN RN ll3 Suzie Mcguire RN RN tp1 Soto Duval 9 Kathy Townsend 6 Corrections: (The following items were deleted from the chart) 06/18 21:08 20:20 Reassessment: Patient appears in no apparent distress at this time. Patient hb and/or family updated on plan of care and expected duration. Pain level reassessed. Patient is alert, oriented x 3, equal unlabored respirations, skin warm/dry/pink. hb 21:08 19:00 Reassessment: hb hb
--- NOTE | 2022-06-18 19:02 | EDPHYS ---
Physician Documentation [facility] Name: Jennifer Stoddard Age: 36 yrs Sex: Female : 1985 Arrival Date: 06/18/2022 Time: 16:04 Bed 19 Private MD: ED Physician Obdulio Harris HPI: 06/18 18:44 This 36 yrs old Female presents to ER via EMS with complaints of Upper jl9 Abdominal Pain. Patient seen here a few days ago with negative findings other than UTI. Patient on Abx. . 18:44 The patient presents with abdominal pain in the epigastric area. Onset: The jl9 symptoms/episode began/occurred last week. The symptoms do not radiate. Associated signs and symptoms: Pertinent negatives: chest pain, diarrhea, fever, hematuria. The symptoms are described as burning. Severity of pain: in the emergency department the pain is a 3 / 10. The patient has experienced similar episodes in the past, today's symptoms are similar. The patient has been recently seen at the [facility] Emergency Department. . 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 - Social history:: Smoking status: Patient denies any tobacco usage or history of. ROS: 18:45 Constitutional: Negative for fever, chills, and weight loss, Eyes: Negative for injury, jl9 pain, redness, and discharge, ENT: Negative for injury, pain, and discharge, Neck: Negative for injury, pain, and swelling, Cardiovascular: Negative for chest pain, palpitations, and edema, Respiratory: Negative for shortness of breath, cough, wheezing, and pleuritic chest pain. 18:45 Back: Negative for injury and pain, : Negative for injury, bleeding, discharge, and swelling, MS/Extremity: Negative for injury and deformity, Skin: Negative for injury, rash, and discoloration, Neuro: Negative for headache, weakness, numbness, tingling, and seizure, Psych: Negative for depression, anxiety, suicide ideation, homicidal ideation, and hallucinations, Allergy/Immunology: Negative for hives, rash, and allergies, Endocrine: Negative for neck swelling, polydipsia, polyuria, polyphagia, and marked weight changes, Hematologic/Lymphatic: Negative for swollen nodes, abnormal bleeding, and unusual bruising. 18:45 Abdomen/GI: Positive for abdominal pain, nausea. Exam: 18:46 Constitutional: This is a well developed, well nourished patient who is awake, alert, jl9 and in no acute distress. Head/Face: Normocephalic, atraumatic. Eyes: Pupils equal round and reactive to light, extra-ocular motions intact. Lids and lashes normal. Conjunctiva and sclera are non-icteric and not injected. Cornea within normal limits. Periorbital areas with no swelling, redness, or edema. ENT: Mucous membranes moist. Neck: Trachea midline, no thyromegaly or masses palpated, and no cervical lymphadenopathy. Supple, full range of motion without nuchal rigidity, or vertebral point tenderness. No Meningismus. Chest/axilla: Normal chest wall appearance and motion. Nontender with no deformity. No lesions are appreciated. Cardiovascular: Regular rate and rhythm with a normal S1 and S2. No gallops, murmurs, or rubs. Normal PMI, no JVD. No pulse deficits. Respiratory: Lungs have equal breath sounds bilaterally, clear to auscultation and percussion. No rales, rhonchi or wheezes noted. No increased work of breathing, no retractions or nasal flaring. 18:46 Back: No spinal tenderness. No costovertebral tenderness. Full range of motion. Skin: Warm, dry with normal turgor. Normal color with no rashes, no lesions, and no evidence of cellulitis. MS/ Extremity: Pulses equal, no cyanosis. Neurovascular intact. Full, normal range of motion. Neuro: Awake and alert, GCS 15, oriented to person, place, time, and situation. Cranial nerves II-XII grossly intact. Motor strength 5/5 in all extremities. Sensory grossly intact. Cerebellar exam normal. Normal gait. Psych: Awake, alert, with orientation to person, place and time. Behavior, mood, and affect are within normal limits. 18:46 Abdomen/GI: Inspection: abdomen appears normal, Bowel sounds: normal, Palpation: abdomen is soft and non-tender, Indicators: Liver: no appreciated palpable abnormalities, emesis/gastric contents smell of Vital Signs: 16:48 BP 127 / 87; Pulse 98; Resp 18; Temp 98.9; Pulse Ox 100% ; Weight 56.7 kg; Height 5 ft. ap3 (152.40 cm); 18:30 BP 124 / 80; Pulse 92; Resp 17; Pulse Ox 99% ; hb 20:15 BP 120 / 76; Pulse 89; Resp 15; Pulse Ox 99% on R/A; Pain 10/10; hb 22:09 BP 108 / 73; Pulse 92; Resp 16; Pulse Ox 99% ; hb 16:48 Body Mass Index 24.41 (56.70 kg, 152.40 cm) ap3 MDM: 18:01 Patient medically screened. 9 18:47 Data reviewed: vital signs, nurses notes, old medical records, lab test result(s). 9 19:07 Counseling: I had a detailed discussion with the patient and/or guardian regarding: the [facility] historical points, exam findings, and any diagnostic results supporting the discharge/admit diagnosis, lab results, the need for outpatient follow up, to return to the emergency department if symptoms worsen or persist or if there are any questions or concerns that arise at home, Patient educated on the need to follow up with PCP/ GI in 1-2 days for further workup. . 06/18 17:01 Order name: Urine Microscopic Only; Complete Time: 18:49 [facility] 06/18 17:01 Order name: Urine Culture [facility] 06/18 17:01 Order name: BMP; Complete Time: 18:16 [facility] 06/18 17:01 Order name: CBC with Diff; Complete Time: 18:16 [facility] 06/18 18:31 Order name: Urine Dipstick-Ancillary; Complete Time: 18:37 [facility] 06/18 21:33 Order name: COVID-19 SARS RT PCR (Document "Date of Onset" if Symptomatic) 5 06/19 00:29 Order name: SARS-COV-2 RT PCR; Complete Time: 17:06 [facility] 06/19 02:41 Order name: CBC with Automated Diff; Complete Time: 17:06 [facility] 06/19 02:53 Order name: Comprehensive Metabolic Panel; Complete Time: 17:06 EDMS 06/19 02:53 Order name: Phosphorus; Complete Time: 17:06 EDKY 06 02:53 Order name: Magnesium; Complete Time: 17:06 EDMS 08 17:01 Order name: Urine Dipstick-Ancillary (obtain specimen); Complete Time: 18:31 jl9 Administered Medications: 19:24 Drug: GI Cocktail without - (Maalox Suspension 30 ml, Lidocaine Liquid 2 % 15 ll3 ml) Route: PO; 21:06 Follow up: Response: No adverse reaction hb 19:24 Drug: Ondansetron 4 mg Route: IVP; Site: right antecubital; ll3 21:06 Follow up: Response: No adverse reaction hb 19:24 Drug: Famotidine 20 mg Route: IVP; Site: right antecubital; ll3 21:06 Follow up: Response: No adverse reaction hb 21:06 Drug: D5-NS 1000 ml Route: IV; Rate: bolus; Site: right antecubital; hb 21:06 Drug: morphine 4 mg Route: IVP; Infused Over: 4 mins; Site: right antecubital; hb 21:06 Drug: Phenergan (promethazine) 12.5 mg Route: IVP; Site: right antecubital; hb Disposition: 20:46 I was asked to reevaluate patient by nursing staff. patient still complains of nausea, mh7 vomiting, and epigastric abdominal pain. This is her third visit for the same issue in the past 3 days. Work up essentially unremarkable on previous visits including US RUQ and CT abdomen/pelvis with IV contrast. Dry mucous membranes, mild epigastric tenderness. Dehydration clinically and UA with 4+ ketones. Will give pain medication, IV fluids, antiemetics, and admit for further care.. Disposition Summary: 06/18/22 20:45 Hospitalization Ordered Hospitalization Status: Observation [facility] Provider: Freedom Luther Condition: Stable(06/18/22 20:45) [facility] Problem: new [facility] Symptoms: are unchanged [facility] Bed/Room Type: Standard [facility] Location: Telemetry/MedSurg (observation)(06/19/22 17:23) em1 Room Assignment: 221(06/19/22 17:23) em1 Diagnosis - Upper abdominal pain, unspecified mh7 - Nausea with vomiting, unspecified mh7 - Dehydration [facility] Forms: - Medication Reconciliation Form mh7 - SBAR form [facility] Signatures: Dispatcher [employer] ED José Miguel Contreras em1 Wilda Tian, RN RN cg Gricel Martini, RN RN Rere Vera RN RN radha3 Obdulio Harris MD MD [facility] Muriel Rachel RN RN 3 Soto Duval jl9 Corrections: (The following items were deleted from the chart) 18:45 18:37 This 36 yrs old Female presents to ER via EMS with complaints of jl9 Abdominal Pain - UTI. jl9 18:46 18:44 This 36 yrs old Female presents to ER via EMS with complaints of Upper jl9 Abdominal Pain - UTI. Patient seen here a few days ago with negative findings other than UTI. Patient on Abx. . jl9 20:44 19:02 Home jl9 7 20:44 19:02 Stable jl9 [facility] 20:44 19:02 Abdominal pain, unspecified jl9 [facility] 23:07 20:45 Telemetry/MedSurg (observation) [facility] 23:07 20:45 [facility] 06/19 17:23 0805 23:07 [facility] ER HOLD em1 06/19 17:23 0805 23:07 ERHOLD- em1
[2022-06-18] MEDS ORDERED: FAMOTIDINE 20 MG/2 ML VIAL IV ONE (19:23)
[2022-06-18] MEDS ORDERED: ONDANSETRON 4 MG/2 ML VIAL ONE (19:23)
[2022-06-18] MEDS ORDERED: LIDOCAINE VISCOUS 2% SOLN 15 ML UDC ONE (19:23)
[2022-06-18] MEDS ORDERED: MAGNES/ALUMIN/SIMET 30ML UCUP ONE (19:23)
[2022-06-18] MEDS ORDERED: MORPHINE 4 MG/ML SYR ONE (20:56)
[2022-06-18] MEDS ORDERED: PROMETHAZINE INJ 25 MG/ML AMP ONE (20:56)
[2022-06-18] MEDS ORDERED: D5 0.9 NS 1,000 ML IV ONE (20:57)
--- NOTE | 2022-06-18 21:58 | P.HP ---
Certification for Inpatient Patient admitted to: Observation With expected LOS: <2 Midnights Patient will require the following post-hospital care: None Practitioner: I am a practitioner with admitting privileges, knowledge of patient current condition, hospital course, and medical plan of care. Services: Services provided to patient in accordance with Admission requirements found in Title 42 Section 412.3 of the Code of Federal Regulations <Tammi Ceballos - Last Filed: 06/18/22 23:37> Patient History Date of Service: 06/18/22 Reason for admission: Intractable Abdominal Pain, Nausea, Vomiting History of Present Illness: Patient is a 36-year-old female, primarily Turkmen speaking, who presented to the ED via EMS with complaints of abdominal pain, n/v, diarrhea, and foul smelling urine x 5 days. Patient was seen in this facility's ED on 06/15 and 06/16 with similar complaints which resulted in negative workups except for UTI- CBC, CMP, lipase, CXR, COVID, abd CT, abd US all without abnormalities. She received prescriptions for tramadol, zofran, and protonix. Patient does report that she was diagnosed with HSV1 and UTI about 1 week ago and started on acyclovir and vancomycin (?) from an outside facility. Her symptoms started shortly after. She complains of burning pain in her epigastric region. She was given a GI cocktail, zofran, pepcid, IVF, morphine, and phenegran in the ED with minimal improvement in her symptoms. Upon my assessment, patient does appear very dry. She is still reporting some abdominal pain but states that her n/v have improved. ED provider wishes to admit patient for observation for intractable abdominal pain, nausea, and vomiting. Home medications list reviewed: Yes (Acyclovir) - Past Medical/Surgical History Diabetic: No Past Medical History: Patient denies medical history -: HSV1 Past Surgical History: Patient denies surgical history Psychosocial/ Personal History: Patient lives at home with her kids. - Family History Family History: Reviewed- Non-Contributory - Social History Smoking Status: Never smoker Alcohol use: No CD- Drugs: No Caffeine use: Yes Place of Residence: Home <Tammi Ceballos - Last Filed: 06/18/22 23:37> Date of Service: 06/19/22 <Ayden Freed - Last Filed: 06/19/22 19:16> Allergies Sulfa (Sulfonamide Antibiotics) Allergy (Verified 06/19/22 19:01) Anaphylaxis Review of Systems General: Weakness Gastrointestinal: Nausea, Vomiting, Abdominal Pain, Diarrhea Genitourinary: Dysuria, As per HPI <Tammi Ceballos - Last Filed: 06/18/22 23:37> Physical Examination - Physical Exam General: Alert, In no apparent distress HEENT: Atraumatic, PERRLA, Other (dry mucous membranes), EOMI, Sclerae nonicteric Neck: Supple, Without JVD or thyroid abnormality Respiratory: Clear to auscultation bilaterally, Normal air movement Cardiovascular: Regular rate/rhythm, Normal S1 S2 Gastrointestinal: Normal bowel sounds, Soft and benign, Non-distended, Tenderness (mild, epigastric) Musculoskeletal: No tenderness Integumentary: No rashes Neurological: Normal speech, Normal strength at 5/5 x4 extr, Normal tone, Normal affect - Studies Laboratory Data (last 24 hrs) 06/18/22 17:24: WBC 9.0 D, Hgb 11.8 L, Hct 33.9 L, Plt Count 394 06/18/22 17:24: Sodium 138, Potassium 3.5, BUN 10, Creatinine 0.55, Glucose 90 <Tammi Ceballos - Last Filed: 06/18/22 23:37> - Studies Laboratory Data (last 24 hrs) 06/19/22 02:08: Sodium 141, Potassium 3.5, BUN 7, Creatinine 0.50 L, Glucose 82, Phosphorus 2.8, Magnesium 2.0, Total Bilirubin 0.2, AST 14 L, ALT 18, Alkaline Phosphatase 41 L 06/19/22 02:08: WBC 6.1 D, RBC 3.56 L, Hgb 10.7 L, Hct 30.5 L, MCV 85.5, MCH 29.9, MCHC 35.0, RDW 14.8, Plt Count 331, MPV 8.0, Neutrophils % 43.1, Lymphocytes % 43.1, Monocytes % 12.4 H, Eosinophils % 0.4, Basophils % 1.0, Absolute Neutrophils 2.6, Absolute Lymphocytes 2.6, Absolute Monocytes 0.8, Absolute Eosinophils 0.0, Absolute Basophils 0.1 06/18/22 18:28: Urine pH 6.0, Ur Specific [place] >=1.030, Glucose (UA)(Auto) Negative, Urine Ketones 4+ H, Urine Blood Negative, Urine Nitrite Negative, Ur Leukocyte Esterase Trace H, Urine Total Protein Negative 06/18/22 18:27: Urine RBC 5-10 H, Urine WBC 5-10, Ur Squamous Epith Cells <5, Urine Bacteria <20, Urine Mucus 2+ 06/18/22 17:24: RBC 3.99, MCV 84.9, MCH 29.6, MCHC 34.8, RDW 15.0, MPV 8.3, Neutrophils % 63.4, Lymphocytes % 27.3, Monocytes % 8.3, Eosinophils % 0.3, Basophils % 0.7, Absolute Neutrophils 5.7, Absolute Lymphocytes 2.5, Absolute Monocytes 0.8, Absolute Eosinophils 0.0, Absolute Basophils 0.1 <Ayden Freed - Last Filed: 06/19/22 19:16> Assessment and Plan - Problems (Diagnosis) (1) Intractable abdominal pain Current Visit: Yes Status: Acute (2) Nausea and vomiting Current Visit: Yes Status: Acute Qualifiers: Vomiting type: unspecified Qualified Code(s): R11.2 - Nausea with vomiting, unspecified (3) UTI (urinary tract infection) Current Visit: Yes Status: Acute Qualifiers: Urinary tract infection type: acute cystitis Hematuria presence: without hematuria Qualified Code(s): N30.00 - Acute cystitis without hematuria - Plan Intractable Nausea & Vomiting Symptoms could be secondary to recent acyclovir and vancomycin use. Gastritis/enteritis of viral origin in differential. Clear liquid diet, advance as tolerated. Zofran ordered PRN. Promethazine if zofran ineffective. NS at 150 cc/hr as patient is very dehydrated. Epigastric Abdominal Pain Likely secondary the persistent bilious nausea/vomiting. Protonix ordered daily. Morphine as needed. Abdominal CT and US negative 2 days ago. Consider repeat imaging if symptoms persist. UTI Patient reports she was taking oral vancomycin for UTI but is still complaining of foul smelling urine and dysuria. 4+ ketones in urine and trace LE. Ceftriaxone daily. Urine culture sent. Monitor and replete electrolytes per protocol. Lovenox for VTE ppx Full code Discharge Plan: Home Plan to discharge in: 24 Hours - Advance Directives Does patient have a Living Will: No Does patient have a Durable POA for Healthcare: No - Code Status/Comfort Care Code Status Assessed: Yes (Full) Critical Care: No Time Spent Managing Pts Care (In Minutes): 50 <Tammi Ceballos - Last Filed: 06/18/22 23:37> Physician Review: Patient Assessed, Agree with Above Assessment and Plan <Ayden Freed - Last Filed: 06/19/22 19:16>
[2022-06-18] MEDS ORDERED: PROMETHAZINE INJ 25 MG/ML AMP IV PRN (23:33)
[2022-06-18] MEDS: NA CHLORIDE 0.9% 1,000 ML IV SCH (23:33)
[2022-06-18] MEDS ORDERED: ACETAMINOPHEN 500 MG TAB PO PRN (23:33)
[2022-06-19] MEDS: MORPHINE 2 MG/ML SYR IV PRN ×3 (00:02→21:40)
[2022-06-19] MEDS: ONDANSETRON 4 MG/2 ML VIAL IV PRN ×3 (00:02→21:40)
[2022-06-19] MEDS ORDERED: NA CHLORIDE 0.9% 1,000 ML ONE ×2 (00:02→08:33)
[2022-06-19 02:38] LABS: Absolute Lymphocytes (CBC) 2.6 K/uL (0.7-4.9); Hematocrit 30.5 % (36.0-45.0); Lymphocytes % 43.1 % (15.3-44.8); MCV 85.5 fL (80-100); RBC Red Blood Cell Count 3.56 M/uL (3.86-4.86)
[2022-06-19 02:52] LABS: Albumin 2.9 g/dL (3.4-5.0); Bilirubin Total 0.2 mg/dL (0.2-1.0); Phosphorus 2.8 mg/dL (2.5-4.9); Potassium 3.5 mmol/L (3.5-5.1); Protein, Total 6.1 g/dL (6.4-8.2)
[2022-06-19] MEDS: NA CHLORIDE 0.9% 1,000 ML IV SCH (08:30)
[2022-06-19] MEDS ORDERED: PANTOPRAZOLE 40 MG INJ ONE (08:33)
[2022-06-19] MEDS ORDERED: CEFTRIAXONE 1000 MG/VIAL ONE (08:33)
[2022-06-19] MEDS ORDERED: NA CHLORIDE 0.9% 100 ML ONE (08:33)
[2022-06-19] MEDS ORDERED: ENOXAPARIN 40 MG/0.4 ML SQ ONE (08:33)
[2022-06-19] MEDS: ENOXAPARIN 40 MG/0.4 ML SQ SCH (08:50)
[2022-06-19] MEDS: PANTOPRAZOLE 40 MG INJ IVP SCH (08:50)
[2022-06-19] MEDS: CEFTRIAXONE 1,000 MG in NA CHLORIDE 0.9% 50 ML IVPB SCH (08:51)
[2022-06-19] MEDS: VALACYCLOVIR 500 MG TAB PO SCH ×2 (12:00→21:31)
[2022-06-19] MEDS ORDERED: ONDANSETRON 4 MG/2 ML VIAL ONE ×2 (13:56)
[2022-06-19] MEDS ORDERED: MORPHINE 2 MG/ML SYR ONE ×2 (13:56)
[2022-06-19] MEDS ORDERED: VALACYCLOVIR 500 MG TAB ONE (13:57)
[2022-06-19] MEDS: Ringers Lactate 1,000 ML IV SCH (16:00)
[2022-06-19] MEDS ORDERED: Ringers Lactate 1,000 ML IV ONE (16:12)
[2022-06-19 18:53] VITALS: O2SAT 99
--- NOTE | 2022-06-19 19:03 | P.PN ---
Subjective Date of Service: 06/19/22 Chief Complaint: Intractable Abdominal Pain, Nausea, Vomiting Subjective: No new changes No acute events since admission. She reports that her abdominal pain, nausea, and vomiting have improved with her current anti-emetic regimen. Review of Systems 10-point ROS is otherwise unremarkable Gastrointestinal: Nausea, Vomiting, Abdominal Pain Physical Examination - Vital Signs Temperature: 98.9 F Blood Pressure: 108/73 Pulse: 92 Respirations: 16 Pulse Ox (%): 100 - Physical Exam General: Alert, In no apparent distress, Oriented x3 HEENT: Atraumatic, Mucous membr. moist/pink, EOMI, Sclerae nonicteric Neck: JVD not distended Respiratory: Clear to auscultation bilaterally, Normal air movement Cardiovascular: No edema, Regular rate/rhythm, Normal S1 S2, No gallops, No rubs, No murmurs Gastrointestinal: Normal bowel sounds, Soft and benign, Non-distended, No tenderness, No rebound, No guarding Musculoskeletal: No clubbing Integumentary: No rashes Neurological: Normal speech, Cranial nerves 3-12 intact, Normal affect - Studies Laboratory Data (last 24 hrs) 06/19/22 02:08: Sodium 141, Potassium 3.5, BUN 7, Creatinine 0.50 L, Glucose 82, Phosphorus 2.8, Magnesium 2.0, Total Bilirubin 0.2, AST 14 L, ALT 18, Alkaline Phosphatase 41 L 06/19/22 02:08: WBC 6.1 D, Hgb 10.7 L, Hct 30.5 L, Plt Count 331 Assessment And Plan - Plan # Intractable Abdominal Pain, Nausea, and Vomiting suspect secondary to Acyclovir and PO Vancomycin # Recent Diagnosis of Herpes Genitalis # Recent Diagnosis of Urinary Tract Infection She states that she was recently prescribed acylcovir and vancomycin, with symptoms starting immediately after. - Spoke with pharmacy, they recommended valacyclovir as a medication with less GI side effects - She was tolerating a clear liquid diet this morning - will advance as tolerated - PRN ondansetron, promthazine, morphine - Started Lactated' Ringer's @ 100 mL/hr - Urinalysis is difficult to interpret given that she was on antibiotics - Continue ceftriaxone for now - If symptoms are not improved by tomorrow, consider Gastroenterology consulta tion Ayden Freed M.D.
[2022-06-19 19:18] VITALS: BMI 24.4
[2022-06-19 22:32] LABS: Specific Gravity 1.015 (1.005-1.030)
[2022-06-19 22:33] LABS: Specific Gravity 1.015 (1.005-1.030); Urine Bilirubin Negative (Negative); Urine Blood Trace-intact (Negative); Urine Clarity Clear (Clear); Urine Color Yellow (Yellow); Urine Glucose Negative (Negative); Urine Protein Negative (Negative); Urine Urobilinogen 0.2 mg/dL (0.2-1.0)
[2022-06-19 23:34] LABS: Urine Bacteria 20-50 /HPF (<20); Urine Mucus 1+ /HPF (None Seen); Urine RBC <5 /HPF (None Seen); Urine WBC Clump Few /HPF (None Seen)
[2022-06-20 01:13] LABS: Barbiturates NEGATIVE (NEGATIVE); Benzodiazepines POSITIVE (NEGATIVE); Cocaine NEGATIVE (NEGATIVE); METHAMPHETAM NEGATIVE (NEGATIVE); Methadone NEGATIVE (NEGATIVE); Opiates NEGATIVE (NEGATIVE); Phencyclidine NEGATIVE (NEGATIVE); THC Cannibis NEGATIVE (NEGATIVE)
[2022-06-20 06:21] LABS: Potassium 3.5 mmol/L (3.5-5.1)
[2022-06-20] MEDS: Ringers Lactate 1,000 ML IV SCH ×2 (06:21→18:29)
[2022-06-20] MEDS: ONDANSETRON 4 MG/2 ML VIAL IV PRN ×2 (07:11→15:55)
[2022-06-20] MEDS: MORPHINE 2 MG/ML SYR IV PRN (07:11)
[2022-06-20] MEDS ORDERED: ACETAMINOPHEN 500 MG TAB PO PRN (08:04)
[2022-06-20] MEDS: PANTOPRAZOLE 40 MG INJ IVP SCH (08:21)
[2022-06-20] MEDS: ENOXAPARIN 40 MG/0.4 ML SQ SCH (08:21)
[2022-06-20] MEDS: CEFTRIAXONE 1,000 MG in NA CHLORIDE 0.9% 50 ML IVPB SCH (08:22)
[2022-06-20] MEDS ORDERED: POTASSIUM CL SA 10 MEQ TAB PO ONE (09:00)
[2022-06-20 10:11] LABS: Barbiturates NEGATIVE (NEGATIVE); Benzodiazepines POSITIVE (NEGATIVE); Cocaine NEGATIVE (NEGATIVE); METHAMPHETAM NEGATIVE (NEGATIVE); Methadone NEGATIVE (NEGATIVE); Opiates NEGATIVE (NEGATIVE); Phencyclidine NEGATIVE (NEGATIVE); THC Cannibis NEGATIVE (NEGATIVE)
[2022-06-20] MEDS: VALACYCLOVIR 500 MG TAB PO SCH ×2 (10:15→21:02)
--- NOTE | 2022-06-20 13:02 | P.PN ---
Subjective Date of Service: 06/20/22 Chief Complaint: Intractable Abdominal Pain, Nausea, Vomiting Subjective: Improving Ms. Jennifer Villa is Stateless-speaking only. The following history was obtained with the assistance of [employer] certified Stateless-Ethiopian cardiology coordinator, Mr. Piña, (ID# [id number]). No acute events overnight. She reports persistent abdominal pain and nausea. She has not had any episodes of emesis since admission. Review of Systems 10-point ROS is otherwise unremarkable Gastrointestinal: Nausea, Abdominal Pain Physical Examination - Vital Signs Temperature: 99.1 F Blood Pressure: 110/72 Pulse: 70 Respirations: 15 Pulse Ox (%): 99 - Studies Microbiology Data (last 24 hrs): 06/18/22 18:27 Clean Catch Urine [place] Count - Final No growth. 06/18/22 18:27 Clean Catch Urine - Final No growth. Assessment And Plan - Plan - Physical Exam General: Alert, In no apparent distress, Oriented x3 HEENT: Atraumatic, Mucous membr. moist/pink, EOMI, Sclerae nonicteric Neck: JVD not distended Respiratory: Clear to auscultation bilaterally, Normal air movement Cardiovascular: No edema, Regular rate/rhythm, Normal S1 S2, No gallops, No rubs, No murmurs Gastrointestinal: Normal bowel sounds, Soft and benign, Non-distended, Minimal tenderness, No rebound, No guarding Musculoskeletal: No clubbing Integumentary: No rashes Neurological: Normal speech, Cranial nerves 3-12 intact, Normal affect Assessment And Plan # Intractable Abdominal Pain, Nausea, and Vomiting suspect secondary to Acyclovir and PO Vancomycin # Recent Diagnosis of Herpes Genitalis # Recent Diagnosis of Urinary Tract Infection She states that she was recently prescribed acylcovir and vancomycin, with symptoms starting immediately after. - Spoke with pharmacy, they recommended valacyclovir as a medication with less GI side effects - Started on valacyclovir 1000 mg BID, day 2 of 10 - She was tolerating a clear liquid diet this morning - will advance as tolerated - PRN ondansetron, promethazine, morphine - Started Lactated' Ringer's @ 100 mL/hr - Urinalysis is difficult to interpret given that she was on antibiotics - Continue ceftriaxone for now - Currently no Gastroenterology on-call - Spoke with Dr. Goldstein who can arrange for a clinic appointment this week if needed # UDS Positive for Benzodiazepines - Denies benzodiazepine use. It does not appear that she received benzodiazepines in the ED on her multiple admissions. - Will monitor for signs of benzodiazepine withdrawal - currently appears comfortable and hemodynamically stable - Monitor today, anticipate discharge tomorrow if tolerating diet Ayden Freed M.D. Discharge Plan: Home Plan to discharge in: 24 Hours
--- NOTE | 2022-06-20 14:59 | RAD REPORT ---
EXAM DESCRIPTION: Jason Single View06/20/2022 2:34 pm CLINICAL HISTORY: Chest pain COMPARISON: June 15, 2022 FINDINGS: The lungs appear clear of acute infiltrate. The heart is normal size IMPRESSION: No acute abnormalities displayed
[2022-06-20] MEDS ORDERED: IBUPROFEN 400 MG TAB PO ONE (20:20)
[2022-06-20] MEDS: BENZONATATE 100 MG CAP PO PRN (21:02)
[2022-06-21] MEDS: BENZONATATE 100 MG CAP PO PRN (05:08)
[2022-06-21] MEDS: Ringers Lactate 1,000 ML IV SCH (05:08)
[2022-06-21 05:57] LABS: Potassium 3.4 mmol/L (3.5-5.1)
[2022-06-21] MEDS: KCL 20 MEQ/100 mL IVPB 20 MEQ/100 ML BAG IV SCH ×2 (06:42→11:02)
[2022-06-21] MEDS: VALACYCLOVIR 500 MG TAB PO SCH (08:25)
[2022-06-21] MEDS: PANTOPRAZOLE 40 MG INJ IVP SCH (08:25)
[2022-06-21] MEDS: ENOXAPARIN 40 MG/0.4 ML SQ SCH (08:25)
[2022-06-21] MEDS: CEFTRIAXONE 1,000 MG in NA CHLORIDE 0.9% 50 ML IVPB SCH (10:34)
[2022-06-21 16:21] VITALS: BP 118/73; TEMP 99.4
== END 2022-06-21 17:50 | disposition home or self-care (01) | DRG 392 ==
LOC: ER 16:01 → ERHOLD 22:01 → OBSVTOIN 06-19 10:48 → 2ND 06-19 18:00
PROVIDERS: ADMIT Internal Medicine; ATTEND Internal Medicine
DX: R11.2 Nausea with vomiting, unspecified (principal); N39.0 Urinary tract infection, site not specified; R10.9 Unspecified abdominal pain; T37.5X5A Adverse effect of antiviral drugs, initial encounter; T36.8X5A Adverse effect of other systemic antibiotics, initial encounter; A60.00 Herpesviral infection of urogenital system, unspecified; Z20.822 Contact with and (suspected) exposure to COVID-19; Z88.2 Allergy status to sulfonamides
CPT/HCPCS: 36415; 71045; 80048; 80053; 80307; 81001; 81003; 81015; 81025; 83735; 84100; 85025; 87086; 87088; 96374; 96375; 99285; C9113; G0378; J1650; J2270; J2405; J2550; J3480; J7030; J7042; J7120; U0003

== ENCOUNTER 2022-06-27 19:28 | Emergency (ER) | payer SELFPAY ==
--- OUTSIDE RECORDS SUMMARY | 2022-06-27 19:31 | XMS REPORT | Continuity of Care Document ---
:1985 Author Organization [facility] t Address [address] [place] [address] Care Team Providers Name Role Phone Pcp, [...] Drug Active [facility] Class [facility] Social History Social Habit Start Date Stop Date Quantity Comments Source Exposure to Yes [facility] SARS-CoV-2 (event) [facility] Sex Assigned At [birth year] [facility] 00:00:00 00:00:00 [facility] Smoking Status Start Date Stop Date Source Unknown if ever smoked [facility] Medications This patient has no known medications. Procedures This patient has no known procedures. Encounters Start End Encounter Admission Attending Care Care Encounter Source Date/Time Date/Time Type Type Clinicians Facility Department ID 2021-07-15 2021-07-15 MARISABEL Hylton [id number] [facility] 00:00:00 00:00:00 (Out) Montez ROLON [id number] i [facility] [id number] Donte as [id number] [address] 2021-07-15 2021-07-15 Letter JigneshMARISABEL be [id number] Univers 00:00:00 00:00:00 (Out) Montez H GONZALES [id number] i ty of [facility] [id number] Donte as [id number] [address] 2021-07-15 2021-07-15 Telephone Jaylan MARISABEL [id number] [facility] 00:00:00 00:00:00 Haritha ROLON [id number] i ty of [facility] [id number] Donte as [id number] [address] 2021-07-14 2021-07-14 Laboratory Only, Ang Db Test [facility] [id number] [facility] 09:17:57 09:32:57 [id number] [id number] Donte as Abraham?Blea [id number] Nm abhay [address] Medical Office Building 2021-07-14 2021-07-14 Outpatient R GORDON [facility] [id number] [facility] 09:30:00 09:30:[address] [facility] Results This patient has no known results.
[2022-06-27 20:19] LABS: Urine Blood Trace-intact (Negative); Urine Glucose Negative (Negative); Urine Protein Negative (Negative); Urine Specific Gravity 1.015 (1.005-1.030)
[2022-06-27 20:50] LABS: Urine Specific Gravity/Preg 1.015 (1.005-1.030)
[2022-06-27] MEDS ORDERED: LIDOCAINE VISCOUS 2% SOLN 15 ML UDC ONE (21:13)
[2022-06-27] MEDS ORDERED: MAGNES/ALUMIN/SIMET 30ML UCUP ONE (21:13)
--- NOTE | 2022-06-27 21:51 | RAD REPORT ---
EXAM DESCRIPTION: RAD - Chest Single View - 06/27/2022 9:37 pm CLINICAL HISTORY: r/o air under diaphragm Chest pain. COMPARISON: Chest Single View dated 06/20/2022; Chest Single View dated 06/15/2022 FINDINGS: Portable technique limits examination quality. The lungs are grossly clear. The heart is normal in size. No displaced fractures.No evidence of free air beneath the diaphragm. IMPRESSION: No acute intrathoracic process suspected.
--- NOTE | 2022-06-27 22:26 | EDPHYS ---
Physician Documentation [facility] Name: Jennifer Stoddard Age: 36 yrs Sex: Female : 1985 Arrival Date: 06/27/2022 Time: 19:31 Bed 10 Private MD: ED Physician Obdulio Harris HPI: 06/27 23:07 This 36 yrs old Female presents to ER via Ambulatory with complaints of snw Abdominal Pain, Diarrhea. 23:07 The patient presents with abdominal pain that is diffuse, abdominal distention. Onset: snw The symptoms/episode began/occurred gradually, 1 week(s) ago, and became persistent. The symptoms do not radiate. Associated signs and symptoms: Pertinent positives: diarrhea. Modifying factors: The symptoms are alleviated by nothing, the symptoms are aggravated by food. Severity of pain: At its worst the pain was moderate in the emergency department the pain is unchanged. The patient has experienced similar episodes in the past, multiple times. The patient has been recently seen by a physician: The patient has been recently seen at the [facility] Emergency Department, The patient has been recently been admitted at [facility], was discharged earlier this week, for similar complaints, but despite evaluation and treatment the patient has continued symptoms. needs follow up with GI, CT neg, Xray today with no air under diaphragm. 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 - Social history:: Smoking status: Patient denies any tobacco usage or history of. Patient/guardian denies using alcohol, street drugs. ROS: 23:07 Constitutional: Negative for fever, chills, and weight loss, Eyes: Negative for injury, snw pain, redness, and discharge, ENT: Negative for injury, pain, and discharge, Neck: Negative for injury, pain, and swelling, Cardiovascular: Negative for chest pain, palpitations, and edema, Respiratory: Negative for shortness of breath, cough, wheezing, and pleuritic chest pain, Back: Negative for injury and pain, : Negative for injury, bleeding, discharge, and swelling, MS/Extremity: Negative for injury and deformity, Skin: Negative for injury, rash, and discoloration, Neuro: Negative for headache, weakness, numbness, tingling, and seizure, Psych: Negative for depression, anxiety, suicide ideation, homicidal ideation, and hallucinations. 23:07 Abdomen/GI: Positive for abdominal pain, diarrhea, of the suprapubic area, left upper quadrant, right lower quadrant and left lower quadrant. Exam: 23:06 Constitutional: This is a well developed, well nourished patient who is awake, alert, snw and in no acute distress. Head/Face: Normocephalic, atraumatic. Eyes: Pupils equal round and reactive to light, extra-ocular motions intact. Lids and lashes normal. Conjunctiva and sclera are non-icteric and not injected. Cornea within normal limits. Periorbital areas with no swelling, redness, or edema. ENT: Nares patent. No nasal discharge, no septal abnormalities noted. Tympanic membranes are normal and external auditory canals are clear. Oropharynx with no redness, swelling, or masses, exudates, or evidence of obstruction, uvula midline. Mucous membranes moist. Neck: Trachea midline, no thyromegaly or masses palpated, and no cervical lymphadenopathy. Supple, full range of motion without nuchal rigidity, or vertebral point tenderness. No Meningismus. Chest/axilla: Normal chest wall appearance and motion. Nontender with no deformity. No lesions are appreciated. Cardiovascular: Regular rate and rhythm with a normal S1 and S2. No gallops, murmurs, or rubs. Normal PMI, no JVD. No pulse deficits. Respiratory: Lungs have equal breath sounds bilaterally, clear to auscultation and percussion. No rales, rhonchi or wheezes noted. No increased work of breathing, no retractions or nasal flaring. Back: No spinal tenderness. No costovertebral tenderness. Full range of motion. Skin: Warm, dry with normal turgor. Normal color with no rashes, no lesions, and no evidence of cellulitis. MS/ Extremity: Pulses equal, no cyanosis. Neurovascular intact. Full, normal range of motion. Neuro: Awake and alert, GCS 15, oriented to person, place, time, and situation. Cranial nerves II-XII grossly intact. Motor strength 5/5 in all extremities. Sensory grossly intact. Cerebellar exam normal. Normal gait. Psych: Awake, alert, with orientation to person, place and time. Behavior, mood, and affect are within normal limits. 23:06 Abdomen/GI: Inspection: abdomen appears normal, Bowel sounds: normal, Palpation: moderate abdominal tenderness, in the suprapubic area, left upper quadrant, right lower quadrant and left lower quadrant. Vital Signs: 20:02 BP 115 / 93; Pulse 79; Resp 18; Temp 97.7; Pulse Ox 100% ; Weight 54.43 kg; Height 5 kb3 ft. 0 in. (152.40 cm); Pain 8/10; 20:02 Body Mass Index 23.44 (54.43 kg, 152.40 cm) kb3 MDM: 20:35 Patient medically screened. snw 21:29 Data reviewed: vital signs, nurses notes. Data interpreted: Pulse oximetry: on room air snw is 100 %. Interpretation: normal. Response to treatment: the patient's symptoms have mildly improved after treatment. Awaiting: getting CXR now. 06/27 20:19 Order name: Urine Dipstick-Ancillary; Complete Time: 20:25 EDMS 06/27 20:28 Order name: Urine --Ancillary (enter results); Complete Time: 20:58 wm 06/27 20:47 Order name: Chest Single View XRAY; Complete Time: 22:06 snw Administered Medications: 21:07 Drug: GI Cocktail without - (Maalox Suspension 30 ml, Lidocaine Liquid 2 % 15 kd3 ml) Route: PO; 22:42 Follow up: Response: No adverse reaction kd3 22:42 Drug: Ketorolac 60 mg Route: IM; Site: right gluteus; kd3 22:42 Follow up: Response: No adverse reaction kd3 Disposition: 23:42 Co-signature as Attending Physician, Obdulio Harris MD. [email or web address] Disposition Summary: 06/27/22 22:23 Discharge Ordered Location: Home snw Condition: Stable snw Diagnosis - Abdominal pain, Generalized snw Followup: snw - With: Private Physician - When: 2 - 3 days - Reason: Recheck today's complaints, Continuance of care, Re-evaluation by your physician Discharge Instructions: - Discharge Summary Sheet snw - Abdominal Pain, Adult snw - Food Choices for Gastroesophageal Reflux Disease, Adult snw - Gas and Gas Pains, Pediatric snw - [place] Diet snw Forms: - Medication Reconciliation Form snw - Thank You Letter snw - Antibiotic Education snw - Prescription Opioid Use snw Prescriptions: - dicyclomine 20 mg Oral Tablet - take 1 tablet by ORAL route 3 times per day; 21 tablet; Refills: 0, Product snw Selection Permitted Signatures: Dispatcher [employer] EDMS Fany Alexander, WIRE WRAPPING MACHINE OPERATOR-C WIRE WRAPPING MACHINE OPERATOR-Csnw Obdulio Harris MD MD [id number] Lana Keating RN RN kd3 Anaya Salinas RN RN kb3 Corrections: (The following items were deleted from the chart) 20:05 20:04 Home Meds: None; kb3 kb3
--- NOTE | 2022-06-27 22:26 | ER ---
Nurse's Notes [facility] Name: Jennifer Stoddard Age: 36 yrs Sex: Female : 1985 Arrival Date: 06/27/2022 Time: 19:31 Bed 10 Private MD: Diagnosis: Abdominal pain, Generalized Presentation: 06/27 20:02 Chief complaint: Patient states: States ongoing epigastric pain, bloating, nausea since kb3 Tuesday. Was seen in this ED last week and provided with pantoprazole rx but symptoms remain. PT also states diarrhea x several days. Coronavirus screen: Vaccine status: Patient reports receiving the 2nd dose of the covid vaccine. Client denies travel out of the [place] in the last 14 days. At this time, the client does not indicate any symptoms associated with coronavirus-19. Ebola Screen: Patient negative for fever greater than or equal to 101.5 degrees Fahrenheit, and additional compatible Ebola Virus Disease symptoms Patient denies exposure to infectious person. Patient denies travel to an Ebola-affected area in the 21 days before illness onset. No symptoms or risks identified at this time. Initial Sepsis Screen: Does the patient meet any 2 criteria? No. Patient's initial sepsis screen is negative. Does the patient have a suspected source of infection? No. Patient's initial sepsis screen is negative. Risk Assessment: Do you want to hurt yourself or someone else? Patient reports no desire to harm self or others. Onset of symptoms was June 2022. 20:02 Method Of Arrival: Ambulatory kb3 20:02 Acuity: ANIVAL 3 kb3 Triage Assessment: 20:04 General: Appears distressed, uncomfortable, Behavior is calm, cooperative. Pain: kb3 Complains of pain in epigastric area Pain does not radiate. Pain currently is 9 out of 10 on a pain scale. Quality of pain is described as burning. GI: Reports diarrhea, nausea. 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 - Social history:: Smoking status: Patient denies any tobacco usage or history of. Patient/guardian denies using alcohol, street drugs. Screenin:42 Abuse screen: Denies threats or abuse. Denies injuries from another. Nutritional kd3 screening: No deficits noted. Tuberculosis screening: No symptoms or risk factors identified. Fall Risk None identified. Assessment: 22:42 GI: Bowel sounds present X 4 quads. Abd is soft and non tender. kd3 Vital Signs: 20:02 BP 115 / 93; Pulse 79; Resp 18; Temp 97.7; Pulse Ox 100% ; Weight 54.43 kg; Height 5 kb3 ft. 0 in. (152.40 cm); Pain 8/10; 20:02 Body Mass Index 23.44 (54.43 kg, 152.40 cm) kb3 ED Course: 19:31 Patient arrived in ED. ja2 20:04 Triage completed. kb3 20:04 Arm band placed on right wrist. kb3 20:25 Fany Alexander FNP-C is PHCP. snw 20:25 Obdulio Harris MD is Attending Physician. snw 20:44 Lana Keating, VENTURA is Primary Nurse. kd3 21:39 Chest Single View XRAY In Process Unspecified. EDMS 22:42 No provider procedures requiring assistance completed. Patient did not have IV access kd3 during this emergency room visit. 22:43 Patient has correct armband on for positive identification. kd3 Administered Medications: 21:07 Drug: GI Cocktail without - (Maalox Suspension 30 ml, Lidocaine Liquid 2 % 15 kd3 ml) Route: PO; 22:42 Follow up: Response: No adverse reaction kd3 22:42 Drug: Ketorolac 60 mg Route: IM; Site: right gluteus; kd3 22:42 Follow up: Response: No adverse reaction kd3 Medication: 22:43 VIS not applicable for this client. kd3 Outcome: 22:23 Discharge ordered by . snw 22:42 Discharged to home ambulatory. kd3 22:42 Condition: stable 22:42 Discharge instructions given to patient. 22:43 Patient left the ED. kd3 Signatures: Dispatcher [employer] EDMS Fany Alexander, TREATING ENGINEER-C TREATING ENGINEER-Csnw Kristine Mensah Kyli, RN RN kd3 Anaya Salinas RN RN kb3 Corrections: (The following items were deleted from the chart) 20:05 20:04 [place] Meds: None; kb3 kb3
[2022-06-27] MEDS ORDERED: KETOROLAC 30 MG/ML INJ ONE (22:42)
[2022-06-28 01:19] VITALS: BP 115/93; TEMP 97.7; O2SAT 100
== END 2022-06-27 22:43 | disposition home or self-care (01) ==
LOC: ER 19:28
DX: R10.84 Generalized abdominal pain (principal); R19.7 Diarrhea, unspecified; Z88.2 Allergy status to sulfonamides
CPT/HCPCS: 71045; 81003; 81025; 96372; 99283

== ENCOUNTER 2022-07-01 16:22 | Emergency (ER) | payer SELFPAY ==
--- OUTSIDE RECORDS SUMMARY | 2022-07-01 16:25 | XMS REPORT | Continuity of Care Document ---
:1985 Author Organization [facility] t Address [address] [place] [address] Care Team Providers Name Role Phone Pcp, Patient Does Not Have A Primary Care Physician [phone] AMY MUÑOZ Attending Clinician Unavailable Amy Muñoz MD Attending Clinician Hans Escamilla MD Attending Clinician Rene Godoy MD Attending Clinician RENE GODOY Attending Clinician Unavailable Haritha Tian RN Attending Clinician Unavailable Montez Egan MD Attending Clinician Only, Ang Db Test Attending Clinician Unavailable Radha Castro Attending Clinician RADHA LEYVA Attending Clinician Unavailable Problems Condition Condition Condition Status Onset Resolution Last Treating Co mments Source Name Details Category Date Date Treatment Clinician Date No known No known Disease Unive rs active active ity of problems problems [facility] Allergies, Adverse Reactions, Alerts Allergy Allergy Status Severity Reaction(s) Onset Inactive Treating Comm ents Source Name Type Date Date Clinician Sulfa Propensi Active Shortness of Un caridad (Sulfona ty to Breath 8-15 ity of mide adverse 00:00: [place] Antibiot reaction 00 Medica l ics) s Branch SULFA Drug Active SOB Univers (SULFONA Class 8-15 ity of MIDE 00:00: [place] ANTIBIOT 00 Medical ICS) Branch NO KNOWN Drug Active Univers ALLERGIE Class ity of S [facility] Social History Social Habit Start Date Stop Date Quantity Comments Source Exposure to 2022-06-20 2022-06-30 Not sure [facility] SARS-CoV-2 (event) 00:00:00 21:55:00 Medica l Branch Sex Ass[birth year] At [birth year] [facility] 00:00:00 00:00:00 Medical Branch Smoking Status Start Date Stop Date Source Tobacco smoking consumption [facility] Medical unknown Branch Medications Ordered Filled Start Stop Current Ordering Indication Dosage Frequency Signature Comments Components Source Medication Medication Date Date Medication? Clinician (SIG) Name Name FENTanyl PF No 50ug 50 mcg, Un caridad (SUBLIMAZE 07-01 Slow IV ity o f (PF)) 06:15: 05:19 Push, [place] injection 00 :00 ONCE, 1 Medical 50 mcg dose, On Branch Gabrielle 07/01/22 at 0115, Routine ondansetron 2021- No 4mg 4 mg, Slow Univers (ZOFRAN 07-01 IV Push, ity of (PF)) 05:15: 05:19 ONCE, 1 [place] injection 4 00 :00 dose, On Medi yee mg Gabrielle Branch 07/01/22 at 0015, ROXANNA maalox:diph No 15mL 15 mL, Uni vers enhydrAMINE 07-01 Oral, ity of :lidocaine 05:15: 05:20 ONCE, 1 [place] 2 % viscous 00 :00 dose, On Medi yee 1:1:1 Gabrielle Branch (FIRST-MOUT 07/01/22 at [facility]) 0015, oral Routine suspension 15 mL NaCl 0.9% 2021- Yes 1000mL at 999 Uni vers (NS) IV 06-28-15 mL/hr, IV ity of infusion 11:30: 23:29 Infusion, Donte as 1,000 mL 00 :00 ONCE, 1 Medical dose, On Branch Tue06/28/22 at 0630, Routine FENTanyl PF No 50ug 50 mcg, Un caridad (SUBLIMAZE 06-28 Slow IV ity o f (PF)) 10:45: 10:01 Push, [place] injection 00 :00 ONCE, 1 Medical 50 mcg dose, On Branch 06/28/22 at 0545, STAT HYDROcodone 2021- No 1{tbl} 1 tablet, Univers -acetaminop 06-28 Oral, ity of hen (NORCO 09:45: 10:01 ONCE, 1 Donte as 5) 5-325 mg 00 :00 dose, On [facility] tablet 1 [facility] tablet 06/28/22 at 0445, ROXANNA diphenhydrA No 25mg 25 mg, Uni vers MINE 06-28 Slow IV ity of (BENADRYL) 09:15: 08:43 Push, [place] injection 00 :00 ONCE, 1 Medical 25 mg dose, On Branch [facility] 06/28/22 at 0415, STAT metoclopram No 10mg 10 mg, Uni vers pushpa HCl 06-28 Slow IV ity of (REGLAN) 09:15: 08:44 Push, [place] injection 00 :00 ONCE, 1 Medical 10 mg dose, On Branch [facility] 06/28/22 at 0415, ROXANNA FENTanyl PF No 50ug 50 mcg, Un caridad (SUBLIMAZE 06-28 Slow IV ity o f (PF)) 09:15: 08:46 Push, [place] injection 00 :00 ONCE, 1 Medical 50 mcg dose, On Branch [facility] 06/28/22 at 0415, STAT iodixanoL 2021- No [id number] 80mL 80 mL, Univers (VISIPAQUE 06-28 Intravenou it y of 270-150 mL) 07:18: 07:15 s, ONCE, 1 [place] injection 00 :00 dose, On Medica l 80 mL [facility] 06/28/22 at 0230, Routine maalox:diph No 15mL 15 mL, Uni vers enhydrAMINE 06-28 Oral, ity of :lidocaine 07:00: 07:57 ONCE, 1 Donte as 2 % viscous 00 :00 dose, On Medi yee 1:1:1 [facility] Branch (FIRST-MOUT 06/28/22 at [facility]) 0200, oral Routine suspension 15 mL famotidine No 20mg 20 mg, Univ ers (PEPCID 8-15 08-15 Slow IV ity of (PF)) 07:00: 06:08 Push, [place] injection 00 :00 ONCE, 1 Medical 20 mg dose, On Branch 06/28/22 at 0200, ROXANNA ondansetron No 4mg 4 mg, Slow Univers (ZOFRAN 06-28-15 IV Push, ity of (PF)) 07:00: 06:08 ONCE, 1 [place] injection 4 00 :00 dose, On Medi yee mg Mon Branch 06/28/22 at 0200, ROXANNA NaCl 0.9% No 1000mL at 999 Uni vers (NS) bolus 06-28-15 mL/hr, ity of infusion 07:00: 06:55 1,000 mL, Donte as 1,000 mL 00 :00 IV Medical Infusion, Branch ONCE, 1 dose, On Tue06/28/22 at 0200, ROXANNA ketorolac No 15mg 15 mg, Unive rs (TORADOL) 06-2815 Slow IV ity of injection 06:00: 06:08 Push, [place] 15 mg 00 :00 ONCE, 1 Medical dose, On Branch Tue06/28/22 at 0100, ROXANNA ondansetron 0 Yes [id number] 4mg Take 1 Univers 4 mg 8-15 tablet by ity of disintegrat 00:00: mouth [place] ing tablet 00 every 8 Medica l (eight) Branch hours as needed for Nausea and Vomiting (N/V). ondansetron Yes [id number] 4mg Take 1 Univers 4 mg 8-15 tablet by ity of disintegrat 00:00: mouth [place] ing tablet 00 every 8 Medica l (eight) Branch hours as needed for Nausea and Vomiting (N/V). HYDROcodone 2021- Yes 4647 1{tbl} Take 1 U nivers -acetaminop -15 -23 tablet by it y of hen 5-325 00:00: 04:59 mouth [place] mg tablet 00 :00 every 4 Medical (four) Branch hours as needed for Pain (scale 7-10) for up to 7 days. Indication s: acute pain HYDROcodone 2021-2021- Yes 4647 1{tbl} Take 1 U nivers -acetaminop 8-15 08-23 tablet by it y of hen 5-325 00:00: 04:59 mouth [place] mg tablet 00 :00 every 4 Medical (four) Branch hours as needed for Pain (scale 7-10) for up to 7 days. Indication s: acute pain Vital Signs Vital Name Observation Time Observation Value Comments Source Heart rate 2022 04:20:00 88 /min [facility] Respiratory rate 2022 04:20:00 19 /min [facility] saturation in 2022 04:20:00 98 /min University of Arterial blood by [facility] Pulse oximetry Branch Systolic blood 2022 04:20:00 125 mm[Hg] Univer sity of [facility] Diastolic blood 2022 04:20:00 87 mm[Hg] Unive rsity of [facility] Body temperature 2022 03:04:00 36.78 Mylene [facility] Body height 2022 03:04:00 152.4 cm [facility] Body weight 2022 03:04:00 59.875 kg [facility] BMI 2022 03:04:00 25.78 kg/m2 [facility] Systolic blood 2022-06-28 11:00:00 104 mm[Hg] Univer sity of [facility] Diastolic blood 2022-06-28 11:00:00 67 mm[Hg] Unive rsity of [facility] Heart rate 2022-06-28 11:00:00 68 /min [facility] Respiratory rate 2022-06-28 11:00:00 18 /min Univ [place] [facility] Oxygen saturation in 2022-06-28 11:00:00 99 /min University of Arterial blood by [facility] Pulse oximetry Branch Body temperature 2022-06-28 05:30:00 37 Mylene [facility] Body weight 2022-06-28 05:30:00 54.432 kg [facility] Procedures Procedure Date / Time Performed Performing Clinician Brii e LIPASE 2022 03:42:00 Amy Muñoz [facility] COMP. METABOLIC PANEL 2022 03:42:00 Amy Muñoz [facility] ([id number]) Medical [place] CBC WITH DIFF 2022 03:42:00 Amy Muñoz [facility] URINALYSIS 2022 03:42:00 Amy Muñoz [facility] US ABDOMEN LIMITED 2022-06-28 10:00:19 Rene Godoy [facility] CT ABDOMEN PELVIS W 2022-06-28 07:17:50 Rene Godoy [facility] CONTRAST [facility] Branch LIPASE 2022-06-28 06:04:00 Rene Godoy [facility] TEST, SERUM 2022-06-28 06:04:00 Rene Godoy [facility] HEPATIC FUNCTION PANEL 2022-06-28 06:04:00 Rene Godoy [facility] ([id number]) [facility] (ALB,T.PRO,BILI T,BU/BC,ALT,AST,ALK PHOS) BASIC METABOLIC PANEL 2022-06-28 06:04:00 Rene Godoy [facility] (NA, K, CL, CO2, Medical Branch GLUCOSE, BUN, CREATININE, CA) CBC WITH DIFF 2022-06-28 06:04:00 Rene Godoy [facility] URINALYSIS 2022-06-28 06:04:00 Rene Godoy [facility] LACTIC ACID WHOLE 2022-06-28 06:04:00 Rene Godoy [facility] BLOOD [facility] Branch COVID-19 (ID NOW RAPID 2022-06-28 06:04:00 Rene Godoy [facility] TESTING) [facility] CONSENT/REFUSAL FOR 2022-06-28 05:38:00 Doctor Unassigned, No Un [facility] DIAGNOSIS AND Name Medical Branch TREATMENT Encounters Start End Encounter Admission Attending Care Care Encounter Source Date/Time Date/Time Type Type Clinicians Facility Department ID 2022-08-26 2022-08-26 Outpatient R [facility] [id number] Univers 07:30:00 07:30:00 [id number] ity of [facility] 2022-06-30 2022 Emergency X [facility] ERT [id number] Univers 22:08:00 00:58:00 NVMAGOLI ity of [facility] 2022-06-30 2022 Emergency [facility] [id number] Univers 22:08:00 00:58:00 Amy MAYS 350.1.13.10 [facility] [address] [facility] 4[place].2.[place] [id number] [facility] 084 Branch 2022-06-28 2022-06-28 Emergency Morrical, Hans O TRAUMA 1.2. [id number] Univers 00:35:00 06:26:00 Rene Godoy [facility] 350.1.13.10 ity of [place]7.2.686 [place] [id number] [facility] 014 Branch 2022-06-28 2022-06-28 Emergency X RENE GODOY [facility] ERT [id number] Univers 00:35:00 06:26:00 ity of [facility] 2021-07-15 2021-07-15 MARISABEL Sarabia [id number] Univers 00:00:00 00:00:00 Haritha ROLON 350.1.13.10 i ty of HOSPITAL 4.2.7.2.686 Donte as [id number] [facility] 019 [place] 2021-07-15 2021-07-15 MARISABEL Hylton [id number] Univers 00:00:00 00:00:00 (Out) Montez ROLON 350.1.13.10 i ty of HOSPITAL 4.2.7.2.686 Donte as [id number] [facility] 019 Branch 2021-07-15 2021-07-15 MARISABEL Hylton [id number] Univers 00:00:00 00:00:00 (Out) Montez ROLON 350.1.13.10 i ty of HOSPITAL 4.2.7.2.686 Donte as [id number] [facility] 019 Branch 2021-07-14 2021-07-14 Laboratory Only, Ang Db Test [facility] 1.2.8 [id number] [id number] Univers 09:17:57 09:32:57 Only GordonRadha [facility] 350.1.13.10 [facility] 4.2.7.2.686 Donte as Abraham?Blea [phone] [place] [address] Medical Office Building 2021-07-14 2021-07-14 Outpatient R GORDON [facility] [id number] Univers 09:30:00 09:30:00 [facility] Results Test Description Test Time Test Comments Results Result Comments Source COMP. METABOLIC PANEL (30423) 2022 04:09:31 Test Item Value Reference Range Interpretation Comme nts NA (test code = 8901839361) 137 mmol/L 135-145 K (test code = 8018620174) 4.1 mmol/L 3.5-5 CL (test code = 6113345563) 100 mmol/L 98-108 CO2 TOTAL (test code = 4893156844) 27 mmol/L 23-31 AGAP (test code = 5106495327) 2-16 BUN (test code = 1108403458) 3 mg/dL 7-23 L GLUCOSE (test code = 6808196273) 102 mg/dL 70-110 CREATININE (test code = 0.57 mg/dL 0.5-1.04 2462516039) TOTAL BILI (test code = 0.4 mg/dL 0.1-1.3 1634926243) CALCIUM (test code = 6875808081) 9.5 mg/dL 8.6-10.6 T PROTEIN (test code = 7852120332) 7.2 g/dL 6.3-8.2 ALBUMIN (test code = 2075504380) 4.5 g/dL 3.5-5 ALK PHOS (test code = 8186063333) 52 U/L 34-122 ALTv (test code = 1742-6) 18 U/L 5-35 AST(SGOT) (test code = 1777396775) 22 U/L 13-40 eGFR (test code = 0890167440) mL/min/1.73m2 EDDI (test code = EDDI) Association of Glomerular Filtration Rate (GFR) and Staging of Kidney Disease* + +-------- + ------+| GFR (mL/min/1.73 m2) ?| With Kidney Damage ?| ?Without Kidney Damage+ +-- + +| ?>90 ?| ?Stage one ?| ? Normal ?+ +------- + -------+| ?60-89 ?| ?Stage two ?| ? Decreased GFR ? + +-------- + ------+| ?30-59 ?| ?Stage three ?| ? Stage three ? + +-------- + ------+| ?15-29 ?| ?Stage four ? | ? Stage four ?+ +------- + -------+| ?<15 (or dialysis) ? ?| ?Stage five ? | ? Stage five ?+ +------- + -------+ *Each stage assumes the associated GFR level has been in effect for at least three months. ?Stages 1 to 5, with or without kidney disease, indicate chronic kidney disease. Notes: Determination of stages one and two (with eGFR >59mL/min/1.73 m2) requires estimation of kidney damage for at least three months as defined by structural or functional abnormalities of the kidney, manifested by either:Pathological abnormalities or Markers of kidney damage (including abnormalities in the composition of the blood or urine or abnormalities in imaging tests). Lab Interpretation (test code = Abnormal 32585-7) [facility] 04[facility]09[facility]11 Test Item Value Reference Range Interpretation Comments LIPASE (test code = 3638392505) 217 U/L 0-220 Lab Interpretation (test code = Normal 36730-5) [facility] WITH [id number] 03:51:52 Test Item Value Reference Range Interpretation Comments WBC (test code = See_Comment [Automated 7690-2) message] The sy stem which generated this result transmitted reference range : 4.30 - 11.10 10*3/?L. The reference range was not used to interpret this result as normal/abnormal . RBC (test code = See_Comment L [Automated 799-8) message] The sy stem which generated this result transmitted reference range : 3.93 - 5.25 10*6/?L. The reference range was not used to interpret this result as normal/abnormal . HGB (test code = 11.6 g/dL 11.6-15 718-7) HCT (test code = 34.5 % 35.7-45.2 L 4544-3) MCV (test code = 89.1 fL 80.6-95.5 787-2) MCH (test code = 30.0 pg 25.9-32.8 785-6) MCHC (test code = 33.6 g/dL 31.6-35.1 786-4) RDW-SD (test code = 45.9 fL 39-49.9 86481-6) RDW-CV (test code = 14.2 % 12-15.5 788-0) PLT (test code = See_Comment H [Automated 777-3) message] The sy stem which generated this result transmitted reference range : 166 - 358 10*3/ ?L. The reference r laisha was not used to interpret this result as normal/abnormal . MPV (test code = 10.8 fL 9.5-12.9 13418-1) NRBC/100 WBC (test See_Comment [Automat ed code = 6357095372) message] The system which generated this result transmitted reference range : 0.0 - 10.0 /100 WBCs. The refer ence range was not u sed to interpret th is result as normal/abnormal . NRBC x10^3 (test code See_Comment [Auto mated = 7661124061) message] The s ystem which generated this result transmitted reference range : 10*3/?L. The reference range was not used to interpret this result as normal/abnormal . GRAN MAT (NEUT) % 61.2 % (test code = 770-8) IMM GRAN % (test code 0.30 % = 4759320078) LYMPH % (test code = 25.2 % 736-9) MONO % (test code = 11.8 % 5905-5) EOS % (test code = 0.7 % 713-8) BASO % (test code = 0.8 % 706-2) GRAN MAT x10^3(ANC) 4.61 10*3/uL 1.88-7.09 (test code = 8731091831) IMM GRAN x10^3 (test 0-0.06 code = 0303669066) LYMPH x10^3 (test code 1.90 10*3/uL 1.32-3.29 = 731-0) MONO x10^3 (test code 0.89 10*3/uL 0.33-0.92 = 742-7) EOS x10^3 (test code = 0.05 10*3/uL 0.03-0.39 711-2) BASO x10^3 (test code 0.06 10*3/uL 0.01-0.07 = 704-7) Lab Interpretation Abnormal (test code = 37091-2) [facility] METABOLIC PANEL (NA, K, CL, CO2, GLUCOSE, BUN, CREATININE, CA)2022-06-28 06:58:09 Test Item Value Reference Range Interpretation Comments NA (test code = 137 mmol/L 135-145 5909861805) K (test code = 3.8 mmol/L 3.5-5 4905521348) CL (test code = 102 mmol/L 98-108 6869096638) CO2 TOTAL (test code = 26 mmol/L 23-31 5122676739) AGAP (test code = 2-16 7421748286) BUN (test code = 5 mg/dL 7-23 L 2650495988) GLUCOSE (test code = 102 mg/dL 70-110 7801166608) CREATININE (test code = 0.63 mg/dL 0.5-1.04 1111178031) CALCIUM (test code = 9.5 mg/dL 8.6-10.6 3384741426) eGFR (test code = mL/min/1.73m2 9750497871) EDDI (test code = EDDI) Association of Glomerular Filtration Rate (GFR) and Staging of Kidney Disease* + --+ --+ ------+| GFR (mL/min/1.73 m2) ?| With Kidney Damage ?| ?Without Kidney Damage+ --------+ --------+ +| ?>90 ?| ?Stage one ?| ? Normal ?+ ---+ ---+ -------+| ?60-89 ?| ?Stage two ?| ? Decreased GFR ? + --+ --+ ------+| ?30-59 ?| ?Stage three ?| ? Stage three ? + --+ --+ ------+| ?15-29 ?| ?Stage four ? | ? Stage four ?+ ---+ ---+ -------+| ?<15 (or dialysis) ? ?| ?Stage five ? | ? Stage five ?+ ---+ ---+ -------+ *Each stage assumes the associated GFR level has been in effect for at least three months. ?Stages 1 to 5, with or without kidney disease, indicate chronic kidney disease. Notes: Determination of stages one and two (with eGFR >59mL/min/1.73 m2) requires estimation of kidney damage for at least three months as defined by structural or functional abnormalities of the kidney, manifested by either:Pathological abnormalities or Markers of kidney damage (including abnormalities in the composition of the blood or urine or abnormalities in imaging tests). Lab Interpretation Abnormal (test code = 52354-7) [facility]31[facility] (ALB,T.PRO,BILI T,BU/BC,ALT,AST,ALK PHOS)2022-06-28 06:58:09 Test Item Value Reference Range Interpretation Comments TOTAL BILI (test code = 4650563398) 0.5 mg/dL 0.1-1.1 BILI UNCON (test code = 0314192394) 0.5 mg/dL 0.1-1.1 BILI CONJ (test code = 0256818330) 0.0 mg/dL 0-0.3 T PROTEIN (test code = 7505771657) 7.9 g/dL 6.3-8.2 ALBUMIN (test code = 7676933863) 4.6 g/dL 3.5-5 ALK PHOS (test code = 8506052342) 61 U/L 34-122 ALTv (test code = 1742-6) 17 U/L 5-35 AST(SGOT) (test code = 4199107546) 21 U/L 13-40 Lab Interpretation (test code = Normal 98148-6) [facility] 06:58:09 Test Item Value Reference Range Interpretation Comments LIPASE (test code = 3903782519) 265 U/L 0-220 H Lab Interpretation (test code = Abnormal 49668-4) [facility] TEST, [id number] 06:55:40 Test Item Value Reference Range Interpretation Comments PREG SERUM (test code Negative = 1745805884) EDDI (test code = EDDI) Less than 10 IU/L. ?If low titer or ectopic is suspected, resubmit specimen in 48-72 hours. [facility] WITH [id number] 06:23:28 Test Item Value Reference Range Interpretation Comments WBC (test code = See_Comment [Automated 6690-2) message] The sy stem which generated this result transmitted reference range : 4.30 - 11.10 10*3/?L. The reference range was not used to interpret this result as normal/abnormal . RBC (test code = See_Comment L [Automated 789-8) message] The sy stem which generated this result transmitted reference range : 3.93 - 5.25 10*6/?L. The reference range was not used to interpret this result as normal/abnormal . HGB (test code = 11.6 g/dL 11.6-15 718-7) HCT (test code = 33.9 % 35.7-45.2 L 4544-3) MCV (test code = 88.1 fL 80.6-95.5 787-2) MCH (test code = 30.1 pg 25.9-32.8 785-6) MCHC (test code = 34.2 g/dL 31.6-35.1 786-4) RDW-SD (test code = 45.2 fL 39-49.9 84225-5) RDW-CV (test code = 14.4 % 12-15.5 788-0) PLT (test code = See_Comment H [Automated 777-3) message] The sy stem which generated this result transmitted reference range : 166 - 358 10*3/ ?L. The reference r laisha was not used to interpret this result as normal/abnormal . MPV (test code = 10.3 fL 9.5-12.9 69126-0) NRBC/100 WBC (test See_Comment [Automat ed code = 9943744598) message] The system which generated this result transmitted reference range : 0.0 - 10.0 /100 WBCs. The refer ence range was not u sed to interpret th is result as normal/abnormal . NRBC x10^3 (test code See_Comment [Auto mated = 5046543225) message] The s ystem which generated this result transmitted reference range : 10*3/?L. The reference range was not used to interpret this result as normal/abnormal . GRAN MAT (NEUT) % 63.9 % (test code = 770-8) IMM GRAN % (test code 0.40 % = 9365885806) LYMPH % (test code = 24.7 % 736-9) MONO % (test code = 10.1 % 5905-5) EOS % (test code = 0.5 % 713-8) BASO % (test code = 0.4 % 706-2) GRAN MAT x10^3(ANC) 4.94 10*3/uL 1.88-7.09 (test code = 4905136249) IMM GRAN x10^3 (test 0.03 10*3/uL 0-0.06 code = 2768913457) LYMPH x10^3 (test code 1.91 10*3/uL 1.32-3.29 = 731-0) MONO x10^3 (test code 0.78 10*3/uL 0.33-0.92 = 742-7) EOS x10^3 (test code = 0.04 10*3/uL 0.03-0.39 711-2) BASO x10^3 (test code 0.03 10*3/uL 0.01-0.07 = 704-7) Lab Interpretation Abnormal (test code = 41679-0) [facility] CenterL[facility] Whole [id number] 06:20:08 Test Item Value Reference Range Interpretation Comments LACTIC ACID (test code = 0.90 mmol/L 0.5-2.2 QUE S 4088082296) Lab Interpretation (test code = Normal 36007-5) [facility]"
[2022-07-01 16:39] LABS: Absolute Lymphocytes (CBC) 1.8 K/uL (0.7-4.9); MPV 8.4 fL (7.6-11.3); RBC Red Blood Cell Count 3.68 M/uL (3.86-4.86)
[2022-07-01 16:45] LABS: Protime INR 1.36
[2022-07-01 17:03] LABS: ALT/SGPT 19 U/L (12-78); AST/SGOT 11 U/L (15-37); Albumin 3.8 g/dL (3.4-5.0); Alkaline Phosphatase 51 U/L (45-117); BUN Blood Urea Nitrogen 6 mg/dL (7-18); Bicarbonate 24 mmol/L (21-32); Bilirubin Direct 0.1 mg/dL (0-0.2); Bilirubin Total 0.3 mg/dL (0.2-1.0); Glomerular Filtration Rate 115 ml/min (=/>90); Glucose Level 110 mg/dL (74-106); Magnesium 2.1 mg/dL (1.8-2.4); NT PRO-BNP 9 pg/mL (<125); Potassium 3.4 mmol/L (3.5-5.1); Protein, Total 7.4 g/dL (6.4-8.2); Sodium Level 137 mmol/L (136-145)
[2022-07-01 17:14] LABS: Troponin High Sensitivity < 3.0 pg/mL (<58.9)
--- NOTE | 2022-07-01 17:18 | RAD REPORT ---
EXAM DESCRIPTION: RAD - Chest Single View - 07/01/2022 5:13 pm CLINICAL HISTORY: CHEST PAIN Chest pain. COMPARISON: Chest Single View dated 06/27/2022; Chest Single View dated 06/20/2022; Chest Single View d ated 06/15/2022 FINDINGS: Portable technique limits examination quality. The lungs are grossly clear. The heart is normal in size. No displaced fractures. IMPRESSION: No acute intrathoracic process suspected.
--- NOTE | 2022-07-01 18:01 | RAD REPORT ---
EXAM DESCRIPTION: CT - Head Brain Wo Cont - 07/01/2022 5:55 pm CLINICAL HISTORY: syncope Headache, drowsiness COMPARISON: No comparisons TECHNIQUE: All CT scans are performed using dose optimization technique as appropriate and may inclu de automated exposure control or mA/KV adjustment according to patient size. FINDINGS: No intracranial hemorrhage, hydrocephalus or extra-axial fluid collection.No areas of brai n edema or evidence of midline shift. The paranasal sinuses and mastoids are clear. The calvarium is intact. IMPRESSION: No acute intracranial abnormality.
--- NOTE | 2022-07-01 18:07 | RAD REPORT ---
EXAM DESCRIPTION: CT - Chest For Pe Angio - 07/01/2022 5:55 pm CLINICAL HISTORY: Chest pain. R/O PE COMPARISON: No comparisons TECHNIQUE: CT angiogram of the pulmonary arteries was performed with MIP. All CT scans are performed using dose optimization technique as appropriate and may include automated exposure control or mA/KV adjustment according to patient size. FINDINGS: No evidence of pulmonary thromboembolism. No acute aortic finding demonstrated. The lungs are clear. No significant pericardial or pleural fluid. No concerning bony finding. IMPRESSION: No evidence of pulmonary thromboembolism. No acute lung findings.
[2022-07-01] MEDS ORDERED: KETOROLAC 30 MG/ML INJ ONE (18:22)
[2022-07-01] MEDS ORDERED: LORAZEPAM 1 MG TABLET ONE (18:33)
[2022-07-01] MEDS ORDERED: MORPHINE 4 MG/ML SYR ONE (20:05)
[2022-07-01] MEDS ORDERED: ONDANSETRON 4 MG/2 ML VIAL ONE (20:05)
--- NOTE | 2022-07-01 20:55 | RAD REPORT ---
EXAM DESCRIPTION: US - Abdomen Exam Limited - 07/01/2022 8:47 pm CLINICAL HISTORY: ABD PAIN COMPARISON: Chest Single View dated 06/15/2022; Abdomen Exam Limited dated 06/15/2022 FINDINGS: The gallbladder demonstrates no gallstones. No pericholecystic fluid or gallbladder wall t hickening. The common bile duct is normal measuring 4 mm. The liver demonstrates no findings of intrahepatic biliary dilatation. IMPRESSION: Unremarkable examination.
--- NOTE | 2022-07-01 21:07 | EDPHYS ---
Physician Documentation [facility] Name: Jennifer Stoddard Age: 37 yrs Sex: Female : 1985 Arrival Date: 07/01/2022 Time: 16:24 Bed 4 Private MD: ED Physician Chan Vargas HPI: 07/01 16:26 This 37 yrs old Female presents to ER via Unassigned with complaints of Chest jh7 pain, shortness of breath, facial numbness, left arm pain, and abdominal pain. 16:26 The patient or guardian reports chest pain that is located primarily in the substernal jh7 area. The pain radiates to the left arm. Associated signs and symptoms: Pertinent positives: lightheadedness, nausea, shortness of breath, syncope. The chest pain is described as a heaviness. Duration: The patient or guardian reports a single episode, that is still ongoing. 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 The patient's family reports that she passed out at home but did not fall or hit her head. Patient states that she takes Lexapro for anxiety and EMS reports that she was anxious during transport to the hospital. The patient also reports that she had an endoscopy performed by Dr. Garcia this morning at 7 AM. She reports that he told her that she has a hernia and cholelithiasis. Aspirin 325 mg and NS 1000mL given in route. 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 - Social history:: Smoking status: Patient denies any tobacco usage or history of. Patient/guardian denies using alcohol, street drugs. ROS: 16:26 Constitutional: Negative for fever, chills, and weight loss. jh7 16:26 ENT: Negative for injury, pain, and discharge, Neck: Negative for injury, pain, and swelling, Abdomen/GI: Negative for abdominal pain, nausea, vomiting, diarrhea, and constipation, Back: Negative for injury and pain, MS/Extremity: Negative for injury and deformity, Skin: Negative for injury, rash, and discoloration. 16:26 Constitutional: 16:26 Cardiovascular: Positive for chest pain, Negative for orthopnea, palpitations. 16:26 Cardiovascular: Positive for Radiating to left arm. 16:26 Respiratory: Positive for shortness of breath, Negative for cough, wheezing. 16:26 Neuro: Positive for numbness, syncope, Negative for altered mental status, dizziness, headache. 16:26 All other systems are negative. Exam: 16:26 Head/Face: Normocephalic, atraumatic. Eyes: Pupils equal round and reactive to light, jh7 extra-ocular motions intact. Lids and lashes normal. Conjunctiva and sclera are non-icteric and not injected. Cornea within normal limits. Periorbital areas with no swelling, redness, or edema. Cardiovascular: Regular rate and rhythm with a normal S1 and S2. No gallops, murmurs, or rubs. Normal PMI, no JVD. No pulse deficits. Respiratory: Lungs have equal breath sounds bilaterally, clear to auscultation and percussion. No rales, rhonchi or wheezes noted. No increased work of breathing, no retractions or nasal flaring. Abdomen/GI: Soft, non-tender, with normal bowel sounds. No distension or tympany. No guarding or rebound. No evidence of tenderness throughout. Skin: Warm, dry with normal turgor. Normal color with no rashes, no lesions, and no evidence of cellulitis. MS/ Extremity: Pulses equal, no cyanosis. Neurovascular intact. Full, normal range of motion. 16:26 Constitutional: The patient appears anxious. 16:26 Respiratory: mild respiratory distress is noted, Respirations: normal, Breath sounds: are clear throughout, Respiratory rate: 30 16:26 Neuro: Orientation: to person, place, time \T\ situation. Mentation: is normal, Memory: is normal, Motor: is normal, Sensation: is normal. Vital Signs: 17:11 BP 120 / 80; Pulse 86; Resp 18; Temp 97.9; Pulse Ox 100% ; Weight 63.5 kg; Height 5 ft. kb3 (152.40 cm); Pain 10/10; 18:10 BP 124 / 82; Pulse 97; Resp 12; Pulse Ox 100% ; bp 19:18 BP 123 / 77; Pulse 91; Resp 13 S; Pulse Ox 100% on R/A; Pain 10/10; ha1 20:04 BP 117 / 82; Pulse 82; Resp 14 S; Pulse Ox 100% on R/A; ha1 20:25 BP 117 / 75; Pulse 82; Resp 16 S; Pulse Ox 100% on R/A; ha1 21:30 BP 114 / 73; Pulse 95; Resp 18 S; Pulse Ox 100% on R/A; ha1 17:11 Body Mass Index 27.34 (63.50 kg, 152.40 cm) kb3 NIH Stroke Scale Scores: 16:26 NIHSS Score: 0 [facility] MDM: 16:26 Patient medically screened. [facility] 19:37 ED course: Patient reported that Dr. Garcia recommended a right upper quadrant [facility] ultrasound because her gallbladder may have been inflamed on the EGD. Lipase and RUQ US ordered. 20:10 Transition of care: After a detail discussion of the patient's case, care is [facility] transferred to Inna NELSON. 21:06 Data reviewed: vital signs, nurses notes. Data interpreted: Pulse oximetry: on room air kb is 100 %. Interpretation: normal. 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 07/01 16:27 Order name: Basic Metabolic Panel; Complete Time: 17:29 [facility] 07/01 16:27 Order name: CBC with Diff; Complete Time: 16:49 [facility] 07/01 16:27 Order name: D-Dimer; Complete Time: 16:49 [facility] 07/01 16:27 Order name: LFT's; Complete Time: 17:29 [facility] 07/01 16:27 Order name: Magnesium; Complete Time: 17:29 [facility] 07/01 16:27 Order name: NT PRO-BNP; Complete Time: 17:29 7 07/01 16:27 Order name: PT-INR; Complete Time: 16:49 7 07/01 16:27 Order name: Troponin HS; Complete Time: 17:29 7 07/01 16:27 Order name: XRAY Chest (1 view); Complete Time: 17:29 7 07/01 16:27 Order name: CT Head Brain wo Cont; Complete Time: 18:19 7 07/01 16:49 Order name: CT Chest For PE Angio; Complete Time: 18:19 7 18 17:09 Order name: Glucose, Ancillary Testing; Complete Time: 17:29 EDMS 18 19:28 Order name: US Abdomen Limited: RUQ; Complete Time: 21:05 7 07/01 19:28 Order name: Lipase; Complete Time: 21:05 7 07/01 16:27 Order name: EKG; Complete Time: 16:27 7 07/01 16:27 Order name: Cardiac monitoring; Complete Time: 16:52 [facility] 07/01 16:27 Order name: EKG - Nurse/Tech; Complete Time: 16:52 [facility] 07/01 16:27 Order name: IV Saline Lock; Complete Time: 16:52 7 07/01 16:27 Order name: Labs collected and sent; Complete Time: 16:52 [facility] 07/01 16:27 Order name: O2 Per Protocol; Complete Time: 16:52 [facility] 07/01 16:27 Order name: O2 Sat Monitoring; Complete Time: 16:52 [facility] 07/01 16:27 Order name: Blood Glucose Level; Complete Time: 16:57 [facility] 07/01 17:33 Order name: Urine Test (obtain specimen); Complete Time: 17:35 jh7 EC:52 Rate is 91 beats/min. Rhythm is regular. QRS [place] is Normal. VT interval is normal at jh7 150 msec. QRS interval is normal at 88 msec. QT interval is normal at 364 msec. No Q waves. T waves are Normal. No ST changes noted. Clinical impression: Normal ECG. Administered Medications: 18:10 Drug: Ketorolac 30 mg Route: IVP; Site: right antecubital; bp 18:25 Follow up: Response: No adverse reaction; Pain is decreased kb3 18:18 Not Given (hospital is outt): Ativan (LORazepam) 1 mg IVP once 7 18:27 Drug: Ativan (LORazepam) 1 mg Route: PO; kb3 20:06 Drug: morphine 4 mg {Note: pain 10/10 RR 14 HR 82.} Route: IVP; Infused Over: 4 mins; ha1 Site: right antecubital; 20:25 Follow up: Response: No adverse reaction; Pain is increased; RASS: Alert and Calm (0) ha1 20:06 Drug: Zofran (Ondansetron) 4 mg Route: IVP; Site: right antecubital; ha1 20:25 Follow up: Response: No adverse reaction ha1 Point of Care Testing: Blood Glucose: 17:19 Blood Glucose: 99 mg/dL; kb3 Urine : 17:35 hCG Reading: Negative; Control Reading: Positive; kb3 Ranges: Critical Glucose Levels:Adult <50 mg/dl or >400 mg/dl <40 mg/dl or >180 mg/dl Disposition Summary: 07/01/22 21:06 Discharge Ordered Location: Home kb Condition: Stable kb Diagnosis - Upper abdominal pain, unspecified kb - Chest pain, unspecified kb Followup: kb - With: Emergency Department - When: As needed - Reason: Worsening of condition Followup: kb - With: Private Physician - When: 2 - 3 days - Reason: Recheck today's complaints, Continuance of care, Re-evaluation by your physician Discharge Instructions: - Discharge Summary Sheet kb - Abdominal Pain, Adult, [id number] kb - Nonspecific Chest Pain, Adult, [id number] kb Forms: - Medication Reconciliation Form kb - Thank You Letter kb - Antibiotic Education kb - Prescription Opioid Use kb NIH Stroke Scale - NIH Stroke Score Date: 07/01/2022 Time: 16:26 Total Score = 0 1a. Level of Consciousness (LOC) - 0(Alert) 1b. Level of Consciousness (LOC) (Month \T\ Age) - 0(Both) 1c. LOC Commands (Open \T\ Closes Eyes/Railroad Operator) - 0(Both) 2. Best Gaze (Lateral Gaze Paresis) - 0(Normal) 3. Visual Field Loss - 0(No visual loss) 4. Facial Palsy - 0(Normal) 5a. Left Arm: Motor (10-second hold) - 0(No drift) 5b. Right Arm: Motor (10-second hold) - 0(No drift) 6a. Left Leg: Motor (5-second hold - always test supine) - 0(No drift) 6b. Right Leg: Motor (5-second hold - always test supine) - 0(No drift) 7. Limb Ataxia (finger/nose \T\ heel/mason - test with eyes open) - 0(Absent) 8. Sensory Loss (pinprick arms/legs/face) - 0(Normal) 9. Best Language: Aphasia (description/naming/reading) - 0(No aphasia) 10. Dysarthria (speech clarity - read or repeat words) - 0(Normal) 11. 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 The patient's family reports that she passed out at home but did not fall or hit her head. Patient states that she takes Lexapro for anxiety and EMS reports that she was anxious during transport to the hospital. The patient also reports that she had an endoscopy performed by Dr. Garcia this morning at 7 AM. She reports that he told her that she has a hernia and cholelithiasis.. [facility]
--- NOTE | 2022-07-01 21:07 | ER ---
Nurse's Notes [facility] Name: Jennifer Stoddard Age: 37 yrs Sex: Female : 1985 Arrival Date: 07/01/2022 Time: 16:24 Bed 4 Private MD: Diagnosis: Upper abdominal pain, unspecified;Chest pain, unspecified Presentation: 07/01 16:24 Initial Sepsis Screen: Does the patient meet any 2 criteria? No. Patient's initial ha1 sepsis screen is negative. 16:58 Method Of Arrival: EMS: [facility] ap3 17:11 Chief complaint: Patient states: Pt reports midsternal chest pain with nausea. Per EMS, kb3 family reports that pt passed out at home prior to their arrival. Unknown if she fell to the ground. Pt has been seen in this ED several times in 2 weeks for epigastric and abdominal complaints. Coronavirus screen: Vaccine status: Patient reports receiving the 2nd dose of the covid vaccine. Client denies travel out of the [place] in the last 14 days. At this time, the client does not indicate any symptoms associated with coronavirus-19. Ebola Screen: Patient negative for fever greater than or equal to 101.5 degrees Fahrenheit, and additional compatible Ebola Virus Disease symptoms Patient denies exposure to infectious person. Patient denies travel to an Ebola-affected area in the 21 days before illness onset. No symptoms or risks identified at this time. Initial Sepsis Screen: Does the patient have a suspected source of infection? No. Patient's initial sepsis screen is negative. Risk Assessment: Do you want to hurt yourself or someone else? Patient reports no desire to harm self or others. Onset of symptoms was July 01, 2022 at 16:00. 17:11 Acuity: ANIVAL 3 kb3 Triage Assessment: 17:14 General: Appears distressed, uncomfortable, Behavior is cooperative, anxious. Pain: kb3 Complains of pain in mid-sternal area Pain does not radiate. Pain currently is 10 out of 10 on a pain scale. Quality of pain is described as burning. Cardiovascular: Reports chest pain, Heart tones present Capillary refill < 3 seconds Patient's skin is warm and dry. Pulses are all present. Rhythm is sinus rhythm. Respiratory: Breath sounds are clear bilaterally. GI: Bowel sounds present X 4 quads. Reports bloating, nausea. 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 - Social history:: Smoking status: Patient denies any tobacco usage or history of. Patient/guardian denies using alcohol, street drugs. Screenin:58 Abuse screen: Denies threats or abuse. Tuberculosis screening: No symptoms or risk ap3 factors identified. 17:35 Nutritional screening: No deficits noted. Fall Risk None identified. kb3 Assessment: 17:00 Reassessment: No changes from previously documented assessment. General:. General: See kb3 triage note. 18:11 Reassessment: PT RETURNED FROM RADIOLOGY. bp 18:57 General: Pt is resting quietly.. kb3 19:18 General: Appears in no apparent distress. Behavior is calm, cooperative. Pain: ha1 Complains of pain in abdomen and head Pain does not radiate. Pain Quality of pain is described as sharp, throbbing, Pain began has been ongoing for weeks Is intermittent, Alleviated by medications, Aggravated by eating. Neuro: No deficits noted. Level of Consciousness is awake, alert, obeys commands, Oriented to person, place, time, situation, Moves all extremities. Full function Speech is normal. Cardiovascular: No deficits noted. Denies chest pain, Heart tones S1 S2 present Capillary refill < 3 seconds Pulses are all present. Respiratory: Airway is patent Respiratory effort is even, unlabored, Respiratory pattern is regular, symmetrical. 19:18 GI: Abdomen is flat, non-distended, Bowel sounds present X 4 quads. Abd is soft and non ha1 tender X 4 quads. Reports abdominal pain and nausea that has been going on over a week. pt. states " I had an endoscopy today". : No signs and/or symptoms were reported regarding the genitourinary system. EENT: No deficits noted. No signs and/or symptoms were reported regarding the EENT system. Derm: No deficits noted. No signs and/or symptoms reported regarding the dermatologic system. Skin is intact, Skin is pink, warm \\T\\ dry. Musculoskeletal: Circulation, motion, and sensation intact. Range of motion: intact in all extremities. 20:04 Reassessment: Patient and/or family updated on plan of care and expected duration. Pain ha1 level reassessed. Patient is alert, oriented x 3, equal unlabored respirations, skin warm/dry/pink. pain 10/10. 20:25 Reassessment: Patient and/or family updated on plan of care and expected duration. Pain ha1 level reassessed. Patient is alert, oriented x 3, equal unlabored respirations, skin warm/dry/pink. pain decreased 2/10 Patient states feeling better. Patient states symptoms have improved. 21:30 Reassessment: No changes from previously documented assessment. Patient and/or family ha1 updated on plan of care and expected duration. Pain level reassessed. Patient is alert, oriented x 3, equal unlabored respirations, skin warm/dry/pink. Vital Signs: 17:11 BP 120 / 80; Pulse 86; Resp 18; Temp 97.9; Pulse Ox 100% ; Weight 63.5 kg; Height 5 ft. kb3 (152.40 cm); Pain 10/10; 18:10 BP 124 / 82; Pulse 97; Resp 12; Pulse Ox 100% ; bp 19:18 BP 123 / 77; Pulse 91; Resp 13 S; Pulse Ox 100% on R/A; Pain 10/10; ha1 20:04 BP 117 / 82; Pulse 82; Resp 14 S; Pulse Ox 100% on R/A; ha1 20:25 BP 117 / 75; Pulse 82; Resp 16 S; Pulse Ox 100% on R/A; ha1 21:30 BP 114 / 73; Pulse 95; Resp 18 S; Pulse Ox 100% on R/A; ha1 17:11 Body Mass Index 27.34 (63.50 kg, 152.40 cm) kb3 NIH Stroke Scale Scores: 16:26 NIHSS Score: 0 [facility] ED Course: 16:24 Patient arrived in ED. 16:26 Dee [facility] 16:26 Chan Vargas MD is Attending Physician. [facility] 16:32 Anaya Salinas, RN is Primary Nurse. kb3 16:58 Patient has correct armband on for positive identification. Bed in low position. Call ap3 light in reach. Side rails up X2. laboratory monitor on. Pulse ox on. NIBP on. Warm blanket given. 17:14 Triage completed. kb3 17:14 XRAY Chest (1 view) In Process Unspecified. EDMS 17:19 Arm band placed on right wrist. EKG completed in triage. Results shown to MD. kb3 17:35 No provider procedures requiring assistance completed. Inserted saline lock: 20 gauge kb3 in right antecubital area, using aseptic technique. Blood collected. 17:57 CT Head Brain wo Cont In Process Unspecified. EDMS 17:57 CT Chest For PE Angio In Process Unspecified. EDMS 19:59 Lex Rhodes, VENTURA is Primary Nurse. as6 20:49 US Abdomen Limited: RUQ In Process Unspecified. EDMS 21:30 IV discontinued, intact, bleeding controlled, No redness/swelling at site. Pressure ha1 dressing applied. Administered Medications: 18:10 Drug: Ketorolac 30 mg Route: IVP; Site: right antecubital; bp 18:25 Follow up: Response: No adverse reaction; Pain is decreased kb3 18:18 Not Given (hospital is outt): Ativan (LORazepam) 1 mg IVP once jh7 18:27 Drug: Ativan (LORazepam) 1 mg Route: PO; kb3 20:06 Drug: morphine 4 mg {Note: pain 10/10 RR 14 HR 82.} Route: IVP; Infused Over: 4 mins; ha1 Site: right antecubital; 20:25 Follow up: Response: No adverse reaction; Pain is increased; RASS: Alert and Calm (0) ha1 20:06 Drug: Zofran (Ondansetron) 4 mg Route: IVP; Site: right antecubital; ha1 20:25 Follow up: Response: No adverse reaction ha1 Medication: 17:35 VIS not applicable for this client. kb3 Point of Care Testing: Blood Glucose: 17:19 Blood Glucose: 99 mg/dL; kb3 Urine : 17:35 hCG Reading: Negative; Control Reading: Positive; kb3 Ranges: Outcome: 21:06 Discharge ordered by . kb 21:30 Discharged to home via wheelchair. ha1 21:30 Condition: stable 21:30 Discharge instructions given to patient, Instructed on discharge instructions, follow up and referral plans. Demonstrated understanding of instructions, follow-up care. 21:43 Patient left the ED. ha1 NIH Stroke Scale - NIH Stroke Score Date: 07/01/2022 Time: 16:26 Total Score = 0 1a. Level of Consciousness (LOC) - 0(Alert) 1b. Level of Consciousness (LOC) (Month \\T\\ Age) - 0(Both) 1c. LOC Commands (Open \\T\\ Closes Eyes/Site Physician) - 0(Both) 2. Best Gaze (Lateral Gaze Paresis) - 0(Normal) 3. Visual Field Loss - 0(No visual loss) 4. Facial Palsy - 0(Normal) 5a. Left Arm: Motor (10-second hold) - 0(No drift) 5b. Right Arm: Motor (10-second hold) - 0(No drift) 6a. Left Leg: Motor (5-second hold - always test supine) - 0(No drift) 6b. Right Leg: Motor (5-second hold - always test supine) - 0(No drift) 7. Limb Ataxia (finger/nose \\T\\ heel/mason - test with eyes open) - 0(Absent) 8. Sensory Loss (pinprick arms/legs/face) - 0(Normal) 9. Best Language: Aphasia (description/naming/reading) - 0(No aphasia) 10. Dysarthria (speech clarity - read or repeat words) - 0(Normal) 11. Extinction and Inattention (visual/tactile/auditory/spatial/personal) - 0(No abnormality) Initials: [facility] Signatures: Dispatcher [employer] Inna Nicholas, MYSQL DEVELOPER-C MYSQL DEVELOPER-CkPiero Rivera, RN RN bp Rere Vera RN RN ap3 Nirmala Rhodes Ashby, RN RN as6 Dee Charles FNP MYSQL DEVELOPER [facility] Justine Myers RN RN ha1 Anaya Salinas RN RN kb3
[2022-07-01 23:24] VITALS: O2SAT 100
[2022-07-01 23:40] VITALS: BP 120/80; TEMP 97.9
--- NOTE | 2022-07-05 08:17 | EKG ---
Test Date: 2022-07-01 Test Time: 16:36:07 Credit Risk Management Director: ALP MEASUREMENT RESULTS: Intervals: Rate: 91 IA: 150 QRSD: 88 QT: 364 QTc: 447 [place]: P: 74 IA: 150 QRS: 79 T: 75 INTERPRETIVE STATEMENTS: Normal sinus rhythm Normal ECG Compared to ECG 06/15/2022 21:37:58 No significant changes Electronically Signed On 07-05-22 08:07:25 CDT by Raphael Barnard
== END 2022-07-01 21:43 | disposition home or self-care (01) ==
LOC: ER 16:22
DX: R07.89 Other chest pain (principal); R10.11 Right upper quadrant pain; Z88.2 Allergy status to sulfonamides
CPT/HCPCS: 36415; 70450; 71045; 71275; 76705; 80048; 80076; 82947; 83690; 83735; 83880; 84484; 85025; 85379; 85610; 93005; 96374; 96375; 99285; J2405; Q9967

== ENCOUNTER 2024-10-29 14:03 | Emergency (ER) | payer OTHER ==
--- OUTSIDE RECORDS SUMMARY | 2024-10-29 14:09 | XMS REPORT | Continuity of Care Document ---
Author Name Unknown Address [address] [facility] [place] [address] [facility] Address [address] [facility] [address] [place] [address] Care Team Providers Care Utility Engineer Name Role Phone No , Pcp Primary Care Physician Unavailab Saima Clark CGC Attending Clinician [phone] Genetic Counselor, [facility] Attending Clinic annette Unavailable Suzanne Montenegro CGC Attending Clinician Unavailable Kaylah Starks RN Attending Clinician Unavaila KRISTINA Bell Attending Clinician Unavailable KRISTINA LONG Attending Clinician Unavailable Judi Dominique MD Attending Clinician + Kristina Long MD Attending Clinician [phone] JUDI DOMINIQUE Attending Clinician Unav ailable JUDI DOMINIQUE Attending Clinician Unav ailable CHECO TAPIA Attending Clinician Unavailab BONITA Rankin Attending Clinician Unavail able Octavia Bonita LYONS Attending Clinician + HALLIE OBREGON Attending Clinician Unavaila ble Lab, Ang-Rmchp Attending Clinician Unavailable Hallie Obregon CNM Attending Clinician [phone] Claudia Roman MD Attending Clinician [phone] Krys MORGAN Attending Clinician Unavailable Krys Scanlon Attending Clinician [phone] MELISSA GARVIN Attending Clinician Unavailabl e Pgy1 Attending Clinician Unavailable Lisa SHARP, Melissa Cadena Attending Clinician [phone] Lab, [facility] Attending Clinician Unavailable ADORE GARCIA Attending Clinician Unavailable ADORE GARCIA Attending Clinician Unavailable Jose SHARP, Adore Attending Clinician [phone], [facility] Usg Room Attending Clinician UnavailRadha Verdugo MD Attending Clinician [phone] Ros Carmichael MD Attending Clinician + RADHA PETERSON Attending Clinician Unavailable Trimester, [facility] Res-1st Attending Clinician Unavailable Doctor Unassigned, Clymer Attending Clinician U navailable Cira Reeder MD, Driss Attending Clinician + DRISS GORDON Attending Clinician Unav ailable Ultrasound, [facility] Attending Clinician Unavaila AUDIE Larkin Attending Clinician Unavailable Fuentes CITY 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, [place] Attending Clinician [phone] Unknown, Attending Attending Clinician Unavailab AMY Saenz Attending Clinician Unavailable Amy Sherman MD Attending Clinician [phone] Hans Escamilla MD Attending Clinician + [phone] Piero Godoy MD Attending Clinician [phone] PIERO GODOY Attending Clinician Unavailable Jignesh SHARP, Montez Duke Attending Clinician [phone] Jaylan WHITEHEAD, Haritha Dahl Attending Clinician Unavaila ble Only, Ang Db Test Attending Clinician Unavailbaljinder Buchanan CITY 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, Shantel Attending Clinician [phone] SHANTEL BUCHANAN Attending Clinician Unavailable JUDI DOMINIQUE Admitting Clinician Unav ailable CHECO TAPIA Admitting Clinician Unavailab Krys Haynes Admitting Clinician Unavailable ADORE GARCIA Admitting Clinician Unavailable Adore Garcia MD Admitting Clinician [phone] PIERO GODOY Admitting Clinician Unavailable Payers Payer Name Policy Type Policy Number Effective Date Expirati on Date Source [employer] STAR [id number] 2024 00:00:00 [place] [id number] 2024 00:00:00 [facility] STAR [id number] 2023 00:00:00 Problems Condition Name Condition Details Condition Category Status Onset Date Resolution Date Last Treatment Date Treating Clinician Comments Source Overweight (BMI 25.0-29.9) Overweight (BMI 25.0-29.9) Disease Active 07-14 00:00: 00 [facility] Bipolar disease during Bipolar disease during Disease Active 07-14 00:00: 00 [facility] History of psychosis History of psychosis Disease Active 07-14 00:00: 00 [facility] 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 Disease Active 07-14 00:00: 00 [facility] History of HSV History of HSV Disease Active 07-14 00:00: 00 [facility] History of bilateral tubal ligation History of bilateral tubal ligation Disease Active 07-14 00:00: 00 [facility] Maternal varicella, non-immune Maternal varicella, non-immune Disease Active 07-14 00:00: 00 [facility] No known active problems No known active problems Disease [facility] AMA (advanced maternal age) multigravi da 35+ AMA (advanced maternal age) multigravi da 35+ Disease Resolve d 07-14 00:00: 00 2023-09-20 00:00:00 2023-09-20 15:07:51 [facility] Allergies, Adverse Reactions, Alerts Allergy Name Allergy Type Status Severity Reaction(s) Onset Date Inactive Date Treating Clinician Comments Source Sulfa Antibiot ics Propensi ty to adverse reaction s Active Shortness of breath 2023-11 2-10 00:00: 00 [facility] Sulfa (Sulfona mide Antibiot ics) Propensi ty to adverse reaction to drug Active 2023-11 0-04 00:00: 00 [facility] Sulfa Antibiot ics - CLASS Propensi ty to adverse reaction to drug Active 03-11 00:00: 00 [facility] Sulfa (Sulfona mide Antibiot ics) Propensi ty to adverse reaction s Active Shortness of Breath 8- 00:00: 00 [facility] SULFA (SULFONA MIDE ANTIBIOT ICS) Drug Class Active SOB 8-15 00:00: 00 [facility] NO KNOWN ALLERGIE S Drug Class Active [facility] Social History Social Habit Start Date Stop Date Quantity Comments Source ASSERTION 2024-07-11 00:00:00 [facility] Sexual orientation [facility] Gender identity [facility] Tobacco use and exposure 2024-10-23 00:00:00 2024-10-23 00:00:00 Smokeless tobacco non-user [facility] Alcoholic beverage intake 2024-10-23 00:00:00 2024-10-23 00:00:00 Lifetime non-drinker (finding) [facility] History of Social function 2024-10-23 00:00:00 2024-10-23 00:00:00 [facility] Sex 2024-10-22 14:17:14 2024-10-22 14:17:14 Female (finding) [facility] Alcohol intake 2023-09-20 00:00:00 2023-09-20 00:00:00 Lifetime non-drinker (finding) [facility] Exposure to SARS-CoV-2 (event) 2022-06-20 00:00:00 2022-06-30 21:55:00 Not sure [facility] Sex assigned at 1985 00:00:00 1985 00:00:00 [facility] Smoking Status Start Date Stop Date Source Tobacco smoking consumption unknown [facility] Never smoked tobacco IN [facility] Medications Ordered Medication Name Filled Medication Name Start Date Stop Date Current Medication? Ordering Clinician Indication Dosage Frequency Signature (SIG) Comments Components Source Fluticasone Propionate (FLONASE NA) 2023-11 09:12: 48 Yes Administer into affected nostril(s) . [facility] BABY ASPIRIN PO 2023-11 09:12: 48 Yes Take by mouth. [facility] clarithromy arik 500 mg tablet 2023-11 00:00: 00 Yes 1mg [facility] amoxicillin 500 mg tablet 2023-11 2- 00:00: 00 Yes 2mg [facility] omeprazole 20 mg capsule,del ayed release 2023-11 2- 00:00: 00 Yes 1mg [facility] Lamictal 25 mg tablet 2023-11 00:00: 00 Yes 3mg [facility] cetirizine 10 mg tablet 2023-11 2 00:00: 00 Yes 1mg aHns Duval Flonase Allergy Relief 50 mcg/actuati on nasal spray,suspe nsion 2023-11 00:00: 00 Yes 1mcg/ac tuation [facility] amoxicillin 500 mg tablet 2023-11 00:00: 00 Yes 2mg [facility] clarithromy arik 500 mg tablet 2023-11 00:00: 00 Yes 1mg [facility] omeprazole 40 mg capsule,del ayed release 2023-11 00:00: 00 Yes 1mg [facility] Lamictal 25 mg tablet 2023-11 00:00: 00 Yes 2mg [facility] Seroquel 50 mg tablet 2023-11 00:00: 00 Yes 1mg [facility] Lamictal 25 mg tablet 2023-11 00:00: 00 Yes 1mg [facility] Seroquel 25 mg tablet 2023-11 00:00: 00 Yes 1mg [facility] Lamictal 25 mg tablet 2023-11 00:00: 00 Yes 1mg [facility] Seroquel 25 mg tablet 2023-11 00:00: 00 Yes 1mg [facility] Clotrimazol e-7 1 % vaginal cream 2023-11 00:00: 00 Yes 1% [facility] acetaminoph en (TYLENOL) tablet 975 mg 2023-11 05:30: 00 09-10 04:36 :00 No 975mg 975 mg, Oral, ONCE, 1 dose, On Tue09/10/24 at 0030, [facility] metronidazo le 0.75 % (37.5 mg/5 gram) vaginal gel 2023-11 0-24 00:00: 00 Yes 1(37.5m g/5 gram) [facility] ondansetron 4 mg disintegrat ing tablet 2023-11 0-04 00:00: 00 Yes 1mg [facility] quetiapine 100 mg tablet 17 00:00: 00 Yes mg [facility] ondansetron (ZOFRAN (PF)) injection 4 mg 07-27 21:15: 00 07-28 01:47 :00 No 4mg 4 mg, Slow IV Push, ONCE, 1 dose, On Tue07/27/24 at 1615, [facility] amoxicillin -clavulanat e 875-125 mg per tablet 07-27 00:00: 00 08-02 04:59 :00 No [id number] 1{tbl} Take 1 tablet by mouth every 12 (twelve) hours for [address] [facility] quetiapine 100 mg tablet 7-23 00:00: 00 Yes mg [facility] quetiapine 100 mg tablet 5-31 00:00: 00 Yes mg [facility] quetiapine 100 mg tablet 4-02 00:00: 00 Yes mg [facility] sertraline 100 mg tablet 4-02 00:00: 00 Yes mg [facility] sertraline 100 mg tablet 3-22 00:00: 00 Yes mg [facility] quetiapine 100 mg tablet 3-22 00:00: 00 Yes mg [facility] ketorolac (TORADOL) injection 15 mg 01-30 19:30: 00 01-30 18:58 :00 No 15mg 15 mg, Slow IV Push, ONCE, 1 dose, On Tue01/31/24 at 1430, Routine [facility] iopamidol (ISOVUE 370-500 mL) injection 80 mL 01-30 19:00: 00 01-30 19:00 :00 No [id number] 80mL 80 mL, Intravenou s, ONCE, 1 dose, On Tue01/31/24 at 1400, Routine [facility] ondansetron (ZOFRAN (PF)) injection 4 mg 01-30 16:30: 00 01-30 18:10 :00 No 4mg 4 mg, Slow IV Push, ONCE, 1 dose, [facility] Tue01/31/24 [facility] 1130[facility] TBDP 01-30 00:00: 00 Yes [facility] ondansetron 4 mg disintegrat ing tablet 01-30 00:00: 00 02-12 04:59 :00 No [id number] 4mg Take 1 tablet by mouth every 8 (eight) hours as needed for Nausea and Vomiting (N/V) for up to [address] [facility] quetiapine 100 mg tablet 12-17 00:00: 00 Yes mg [facility] sertraline 100 mg tablet 12-17 00:00: 00 Yes mg [facility] TAKE 1 TABLET AT BEDTIME. 12-07 00:00: 00 03-19 00:00 :00 No 100 [facility] TAKE 1 TABLET AT BEDTIME. 2022-11 00:00: 00 03-19 00:00 :00 No 100 [facility] TAKE 1 TABLET DAILY. 2022-11 00:00: 00 03-19 00:00 :00 No 100 [facility] TAKE ONE (1) TABLET(S) BY MOUTH AT BEDTIME. 2022-11 00:00: 00 Yes [facility] ketorolac (TORADOL) injection 15 mg 2022-11 0 02:15: 00 08-15 02:15 :00 No 15mg 15 mg, Slow IV Push, ONCE, 1 dose, On Tue08/14/23 at 2115, [facility] cefdinir (OMNICEF) capsule 600 mg 2022-11 0- 01:15: 00 08-15 01:12 :00 No 600mg 600 mg, Oral, ONCE, 1 dose, On Tue08/14/23 at 2015, ROXAN[facility]
Re ason for Anti-Infec tive: Documented Infection< br>Documen jenny Infection Site: Urine
D uration of Therapy: Other (see Comments) [facility] ondansetron (ZOFRAN (PF)) injection 4 mg 2022-11 21:45: 00 08-14 21:45 :00 No 4mg 4 mg, Slow IV Push, ONCE, 1 dose, On 08/14/23 at 1645, [facility] morpHINE (4 mg/mL) injection 4 mg 2022-11 21:45: 00 08-14 21:45 :00 No 4mg 4 mg, Slow IV Push, ONCE, 1 dose, On 08/14/23 at 1645, STAT [facility] TAKE ONE (1) CAPSULE BY MOUTH EVERY TWELVE HOURS FOR 10 DAYS. 2022-11 00:00: 00 Yes [facility] TAKE ONE (1) TABLET(S) BY MOUTH EVERY SIX HOURS NEEDED FOR PAIN. 2022-11 00:00: 00 Yes Hans Zoraida Mukund ibuprofen 600 mg tablet 2022-11 00:00: 00 Yes [id number] 600mg Take 1 tablet by mouth every 6 (six) hours as needed for Pain (scale 4-6). [facility] cefdinir 300 mg capsule 2022-11 00:00: 00 08-25 04:59 :00 No [id number] 300mg Take 1 capsule by mouth every 12 (twelve) hours for [address] [facility] SERTRALINE HYDROCHLORI DE 100 MG TABS 08-05 00:00: 00 Yes [facility] TAKE 1 TABLET AT BEDTIME. 08-05 00:00: 00 03-19 00:00 :00 No 50 [facility] TAKE 1 TABLET AT BEDTIME. 08-05 00:00: 00 03-19 00:00 :00 No 100 [facility] methotrexat e injection 83.5 mg 08-04 21:45: 00 08-04 22:00 :[id number] [facility] Prenat Vit Comb.10-Iro n-FA-DHA (VITAFOL-OB +DHA) 65-1-250 mg combo pack 07-13 00:00: 00 Yes [id number] 1{packa ge} Take 1 Package by mouth daily. [facility] SERTraline 100 mg tablet 07-06 00:00: 00 Yes [id number] 100mg Take 1 tablet by mouth in the morning. [facility] TAKE 1 TABLET DAILY. 07-06 00:00: 00 03-19 00:00 :00 No 100 [facility] PROGESTERON E VAGINAL 06-25 00:00: 00 07-17 04:59 :00 No [id number] 400mg Insert 400 mg into vagina in the morning and 400 mg in the evening. Rx from [place]- [facility] QUEtiapine 100 mg tablet 06-09 00:00: 00 Yes [id number] 100mg Take 1 tablet by mouth in the morning and 1 tablet in the evening. [facility] escitalopra m oxalate 10 mg tablet 06-09 00:00: 00 07-13 00:00 :00 No TAKE ONE AND ONE-HALF (1 AND 1/2) TABLETS BY MOUTH DAILY. [facility] TAKE 1 TABLET TWICE DAILY. 06-08 00:00: 00 03-19 00:00 :00 No 100 [facility] TAKE 1 TABLET AT BEDTIME. 05-11 00:00: 00 03-19 00:00 :00 No 100 [facility] TAKE 1 TABLET AT BEDTIME. 03-11 00:00: 00 03-19 00:00 :00 No 100 [facility] TAKE 1 TABLET AT BEDTIME. 3- 00:00: 00 03-19 00:00 :00 No 100 [facility] TAKE 1 TABLET DAILY. 2- 00:00: 00 03-19 00:00 :00 No 10 [facility] TAKE 1 TABLET AT BEDTIME. 2- 00:00: 00 03-19 00:00 :00 No 100 [facility] TAKE ONE (1) TABLET(S) BY MOUTH EVERY FOUR TO SIX HOURS NEEDED. - 00:00: 00 03-19 00:00 :00 No [facility] TAKE 1 TABLET AT BEDTIME. 11-16 00:00: 00 03-19 00:00 :00 No 100 [facility] TAKE ONE (1) TABLET(S) BY MOUTH AT BEDTIME. 11-16 00:00: 00 03-19 00:00 :00 No [facility] TAKE 1 TABLET DAILY. 11-16 00:00: 00 03-19 00:00 :00 No 10 [facility] TAKE ONE (1) TABLET(S) BY MOUTH DAILY. 2021-11 00:00: 00 03-19 00:00 :00 No [facility]val Dose Unknown 2021-11 00:00: 00 03-19 00:00 :00 No [facility] TAKE 1 TABLET DAILY. 2021-11 00:00: 00 03-19 00:00 :00 No [facility] TAKE 1 TABLET AT BEDTIME. 2021-11 00:00: 00 03-19 00:00 :00 Leeanna Duval TAKE ONE TABLET BY MOUTH TWICE A DAY 07-21 00:00: 00 03-19 00:00 :00 Leeanna Finneganhen Zoraida Duval TAKE 1 TABLET BY MOUTH ONCE DAILY AT BEDTIME 07-14 00:00: 00 03-19 00:00 :00 No Hans Zoraida Mukund FENTanyl PF (SUBLIMAZE (PF)) injection 50 mcg 07-01 06:15: 00 07-01 05:19 :00 No 50ug 50 mcg, Slow IV Push, ONCE, 1 dose, On Gabrielle 07/01/22 at 0115, Routine [facility] ondansetron (ZOFRAN (PF)) injection 4 mg 07-01 05:15: 00 07-01 05:19 :00 No 4mg 4 mg, Slow IV Push, ONCE, 1 dose, On Gabrielle 07/01/22 at 0015, [facility] maalox:diph enhydrAMINE :lidocaine 2 % viscous 1:1:1 ([facility]) oral suspension 15 mL 07-01 05:15: 00 07-01 05:20 :00 No 15mL 15 mL, Oral, ONCE, 1 dose, On Gabrielle 07/01/22 at 0015, Routine [facility] TAKE ONE (1) TABLET(S) BY MOUTH ONCE A DAY. 07-01 00:00: 00 03-19 00:00 :00 Leeanna Duval TAKE ONE (1) CAPSULE(S) BY MOUTH IN THE MORNING. 07-01 00:00: 00 03-19 00:00 :00 Leeanna Duval TAKE ONE (1) TABLET(S) BY MOUTH AT BEDTIME. 07-01 00:00: 00 03-19 00:00 :00 Leeanna Duval NaCl 0.9% (NS) IV infusion 1,000 mL 06-28 11:30: 00 06-28 23:29 :00 No 1000mL at 999 mL/hr, IV Infusion, ONCE, 1 dose, On Tue06/28/22 at 0630, Routine [facility] FENTanyl PF (SUBLIMAZE (PF)) injection 50 mcg 06-28 10:45: 00 06-28 10:01 :00 No 50ug 50 mcg, Slow IV Push, ONCE, 1 dose, On Tue06/28/22 at 0545, STAT [facility] HYDROcodone -acetaminop hen (NORCO 5) 5-325 mg tablet 1 tablet 06-28 09:45: 00 06-28 10:01 :00 No 1{tbl} 1 tablet, Oral, ONCE, 1 dose, On Tue06/28/22 at 0445, [facility] diphenhydrA MINE (BENADRYL) injection 25 mg 06-28 09:15: 00 06-28 08:43 :00 No 25mg 25 mg, Slow IV Push, ONCE, 1 dose, On Tue06/28/22 at 0415, STAT [facility] metoclopram pushpa HCl (REGLAN) injection 10 mg 06-28 09:15: 00 06-28 08:44 :00 No 10mg 10 mg, Slow IV Push, ONCE, 1 dose, On Tue06/28/22 at 0415, [facility] FENTanyl PF (SUBLIMAZE (PF)) injection 50 mcg 06-28 09:15: 00 06-28 08:46 :00 No 50ug 50 mcg, Slow IV Push, ONCE, 1 dose, On Tue06/28/22 at 0415, STAT [facility] iodixanoL (VISIPAQUE 270-150 mL) injection 80 mL 06-28 07:18: 00 06-28 07:15 :00 No [id number] 80mL 80 mL, Intravenou s, ONCE, 1 dose, On Tue06/28/22 at 0230, Routine [facility] maalox:diph enhydrAMINE :lidocaine 2 % viscous 1:1:1 ([facility]) oral suspension 15 mL 06-28 07:00: 00 06-28 07:57 :00 No 15mL 15 mL, Oral, ONCE, 1 dose, On Tue06/28/22 at 0200, Routine [facility] famotidine (PEPCID (PF)) injection 20 mg 06-28 07:00: 00 06-28 06:08 :00 No 20mg 20 mg, Slow IV Push, ONCE, 1 dose, On Tue06/28/22 at 0200, [facility] ondansetron (ZOFRAN (PF)) injection 4 mg 06-28 07:00: 00 06-28 06:08 :00 No 4mg 4 mg, Slow IV Push, ONCE, 1 dose, On Tue06/28/22 at 0200, [facility] NaCl 0.9% (NS) bolus infusion 1,000 mL 06-28 07:00: 00 06-28 06:55 :00 No 1000mL at 999 mL/hr, 1,000 mL, IV Infusion, ONCE, 1 dose, On Tue06/28/22 at 0200, [facility] ketorolac (TORADOL) injection 15 mg 06-28 06:00: 00 06-28 06:08 :00 No 15mg 15 mg, Slow IV Push, ONCE, 1 dose, On Tue06/28/22 at 0100, [facility] ondansetron 4 mg disintegrat ing tablet 06-28 00:00: 00 Yes [id number] 4mg Take 1 tablet by mouth every 8 (eight) hours as needed for Nausea and Vomiting (N/V). [facility] HYDROcodone -acetaminop hen 5-325 mg tablet 06-28 00:00: 00 07-06 04:59 :00 No [id number] 1{tbl} Take 1 tablet by mouth every 4 (four) hours as needed for Pain (scale 7-10) for up to 7 days. Indication s: acute pain [facility] TAKE ONE (1) CAPSULE(S) BY MOUTH THREE TIMES A DAY NEEDED FOR COUGH. 06-21 00:00: 00 03-19 00:00 :00 Leeanna Duval DISSOLVE ONE (1) TABLET(S) BY MOUTH EVERY SIX HOURS NEEDED FOR NAUSEA / VOMITING. 06-21 00:00: 00 03-19 00:00 :00 Leeanna Duval TAKE TWO (2) TABLET(S) BY MOUTH TWICE A DAY. 06-21 00:00: 00 03-19 00:00 :00 Leeanna Duval TAKE 10 ML(S) BY MOUTH EVERY 8 HOURS NEEDED. 06-17 00:00: 00 03-19 00:00 :00 Leeanna Duval TAKE ONE (1) TABLET(S) BY MOUTH TWICE A DAY. 06-17 00:00: 00 03-19 00:00 :00 Leeanna Duval TAKE ONE (1) TABLET(S) BY MOUTH THREE TIMES A DAY FOR 10 DAYS. 06-14 00:00: 00 03-19 00:00 :00 Leeanna Duval TAKE ONE (1) CAPSULE BY MOUTH DAILY. 06-14 00:00: 00 03-19 00:00 :00 Leeanna Duval TAKE ONE (1) CAPSULE BY MOUTH EVERY 8 HOURS FOR 10 DAYS. 06-14 00:00: 00 03-19 00:00 :00 No Hans [facility]val TAKE ONE (1) TABLET(S) BY MOUTH TWICE A DAY FOR SEVEN DAYS. 02-23 00:00: 00 03-19 00:00 :00 Leeanna Duval Immunizations Ordered Immunization Name Filled Immunization Name Date Status Comments Source Moderna COVID-19 Vaccine Moderna COVID-19 Vaccine 2021-12-18 00:00:00 Completed [facility] Moderna COVID-19 Vaccine Moderna COVID-19 Vaccine 2021-11-18 00:00:00 Completed [facility] Vital Signs Vital Name Observation Time Observation Value Comments S ource Body height 2024-10-23 15:09:00 [facility] Body weight 2024-10-23 15:09:00 63.957 [facility] BMI 2024-10-23 15:09:00 27.54 kg/m2 [facility] Systolic blood pressure 2024-09-10 04:30:00 125 mm[Hg] [place] [facility] Diastolic blood pressure 2024-09-10 04:30:00 78 mm[Hg] [facility] Heart rate 2024-09-10 04:30:00 88 /min [facility] Body temperature 2024-09-10 04:30:00 36.78 Mylene [facility] Respiratory rate 2024-09-10 04:30:00 14 /min [facility] Oxygen saturation in Arterial blood by Pulse oximetry 2024-09-10 04:30:00 100 /min [facility] Body height 2024-09-10 00:04:00 157.5 cm [facility] Body weight 2024-09-10 00:04:00 65.59 kg [facility] BMI 2024-09-10 00:04:00 26.45 kg/m2 [facility] Systolic blood pressure 2024-07-28 03:50:00 109 mm[Hg] [facility] Diastolic blood pressure 2024-07-28 03:50:00 64 mm[Hg] [facility] Heart rate 2024-07-28 03:50:00 98 /min [facility] Body temperature 2024-07-28 03:50:00 37.5 Mylene [facility] Respiratory rate 2024-07-28 03:50:00 13 /min [facility] Oxygen saturation in Arterial blood by Pulse oximetry 2024-07-28 03:50:00 99 /min [facility] Body height 2024-07-27 21:11:00 157.5 cm [facility] Body weight 2024-07-27 21:11:00 65.772 kg [facility] BMI 2024-07-27 21:11:00 26.52 kg/m2 [facility] Systolic blood pressure 2024-01-31 18:30:00 122 mm[Hg] [facility] Diastolic blood pressure 2024-01-31 18:30:00 83 mm[Hg] [facility] Heart rate 2024-01-31 18:30:00 84 /min [facility] Respiratory rate 2024-01-31 18:30:00 14 /min [facility] Oxygen saturation in Arterial blood by Pulse oximetry 2024-01-31 18:30:00 100 /min [facility] Body temperature 2024-01-31 15:59:00 36.22 Mylene [facility] Body height 2024-01-31 15:59:00 152.4 cm [facility] Body weight 2024-01-31 15:59:00 63.05 kg [facility] BMI 2024-01-31 15:59:00 27.15 kg/m2 [facility] Systolic blood pressure 2023-09-20 20:51:00 127 mm[Hg] [facility] Diastolic blood pressure 2023-09-20 20:51:00 84 mm[Hg] [facility] Heart rate 2023-09-20 20:51:00 64 /min [facility] Body temperature 2023-09-20 20:51:00 36.5 Mylene [facility] Respiratory rate 2023-09-20 20:51:00 18 /min [facility] Body weight 2023-09-20 20:51:00 64.456 kg [facility] BMI 2023-09-20 20:51:00 27.75 kg/m2 [facility] Systolic blood pressure 2023-08-15 00:30:00 115 mm[Hg] [facility] Diastolic blood pressure 2023-08-15 00:30:00 77 mm[Hg] [facility] Heart rate 2023-08-15 00:30:00 62 /min [facility] Body temperature 2023-08-15 00:30:00 36.56 Mylene [facility] Respiratory rate 2023-08-15 00:30:00 16 /min [facility] Oxygen saturation in Arterial blood by Pulse oximetry 2023-08-15 00:30:00 99 /min [facility] Body height 2023-08-14 21:07:00 152.4 cm [facility] Body weight 2023-08-14 21:07:00 63.957 kg [facility] BMI 2023-08-14 21:07:00 27.54 kg/m2 [facility] Systolic blood pressure 2023-08-10 17:47:00 121 mm[Hg] [facility] Diastolic blood pressure 2023-08-10 17:47:00 78 mm[Hg] [facility] Heart rate 2023-08-10 17:47:00 65 /min [facility] Body temperature 2023-08-10 17:47:00 35.89 Mylene [facility] Respiratory rate 2023-08-10 17:47:00 18 /min [facility] Body height 2023-08-10 17:47:00 152.4 cm [facility] Body weight 2023-08-10 17:47:00 63.957 kg [facility] BMI 2023-08-10 17:47:00 27.54 kg/m2 [facility] Systolic blood pressure 2023-08-07 18:30:00 110 mm[Hg] [facility] Diastolic blood pressure 2023-08-07 18:30:00 60 mm[Hg] [facility] Heart rate 2023-08-07 18:30:00 72 /min [facility] Body temperature 2023-08-07 18:30:00 36.39 Mylene [facility] Respiratory rate 2023-08-07 18:30:00 18 /min [facility] Body height 2023-08-07 18:30:00 152.4 cm [facility] Oxygen saturation in Arterial blood by Pulse oximetry 2023-08-07 18:30:00 100 /min [facility] Systolic blood pressure 2023-08-04 15:02:00 119 mm[Hg] [facility] Diastolic blood pressure 2023-08-04 15:02:00 78 mm[Hg] [facility] Heart rate 2023-08-04 15:02:00 74 /min [facility] Body temperature 2023-08-04 15:02:00 35.56 Mylene [facility] Respiratory rate 2023-08-04 15:02:00 16 /min [facility] Body height 2023-08-04 15:02:00 152.4 cm [facility] Body weight 2023-08-04 15:02:00 64.547 kg [facility] BMI 2023-08-04 15:02:00 27.79 kg/m2 [facility] Systolic blood pressure 2023-07-25 16:10:00 121 mm[Hg] [facility] Diastolic blood pressure 2023-07-25 16:10:00 78 mm[Hg] [facility] Heart rate 2023-07-25 16:10:00 103 /min Unive [facility] Body temperature 2023-07-25 16:10:00 36.67 Mylene [facility] Respiratory rate 2023-07-25 16:10:00 24 /min [facility] Body height 2023-07-25 16:10:00 152.4 cm [facility] weight 2023-07-25 16:10:00 64.071 kg [facility] BMI 2023-07-25 16:10:00 27.59 kg/m2 [facility] Oxygen saturation in Arterial blood by Pulse oximetry 2023-07-25 16:10:00 100 /min [facility] Systolic blood pressure 2023-07-13 13:07:00 118 mm[Hg] [facility] Diastolic blood pressure 2023-07-13 13:07:00 73 mm[Hg] [facility] Heart rate 2023-07-13 13:07:00 85 /min Unive [facility] Body temperature 2023-07-13 13:07:00 36.28 Mylene [facility] Respiratory rate 2023-07-13 13:07:00 18 /min [facility] Body height 2023-07-13 13:07:00 152.4 cm Univ [facility] Body weight 2023-07-13 13:07:00 63.821 kg [facility] BMI 2023-07-13 13:07:00 27.48 kg/m2 Univ [facility] Heart rate 2022 04:20:00 88 /min Unive [facility] Respiratory rate 2022 04:20:00 19 /min [facility] Oxygen saturation in Arterial blood by Pulse oximetry 2022 04:20:00 98 /min [facility] Systolic blood pressure 2022 04:20:00 125 mm[Hg] [facility] Diastolic blood pressure 2022 04:20:00 87 mm[Hg] [facility] Body temperature 2022 03:04:00 36.78 Mylene [facility] Body height 2022 03:04:00 152.4 cm [facility] Body weight 2022 03:04:00 59.875 kg [facility] BMI 2022 03:04:00 25.78 kg/m2 [facility] Systolic blood pressure 2022-06-28 11:00:00 104 mm[Hg] [place] [facility] Diastolic blood pressure 2022-06-28 11:00:00 67 mm[Hg] [facility] Heart rate 2022-06-28 11:00:00 68 /min [facility] Respiratory rate 2022-06-28 11:00:00 18 /min [facility] Oxygen saturation in Arterial blood by Pulse oximetry 2022-06-28 11:00:00 99 /min [facility] Body temperature 2022-06-28 05:30:00 37 [facility] Body weight 2022-06-28 05:30:00 54.432 kg [facility] BP Systolic 2024-10-18 11:29:00 127 mm[Hg] Step hen F Mukund BP Diastolic 2024-10-18 11:29:00 89 mm[Hg] Dandre phen F Mukund Weight Measured 2024-10-18 11:29:00 142.60 pounds Hans F Mukund Height Measured 2024-10-18 11:29:00 61.00 inches Hans F Mukund Body Temperature 2024-10-18 11:29:00 98.00 degrees Hans F Mukund Heart Rate 2024-10-18 11:29:00 98.00 /min Rayna en F Mukund Respiratory Rate 2024-10-18 11:29:00 16.00 /min Hans F Mukund BP Systolic 2024-10-09 15:07:00 110 mm[Hg] Step hen F Mukund BP Diastolic 2024-10-09 15:07:00 72 mm[Hg] Dandre phen F Mukund Weight Measured 2024-10-09 15:07:00 140.20 pounds Hans F Mukund Height Measured 2024-10-09 15:07:00 61.00 inches Hans F Mukund Body Temperature 2024-10-09 15:07:00 98.20 degrees Hans F Mukund Heart Rate 2024-10-09 15:07:00 88.00 /min Rayna en F Mukund Respiratory Rate 2024-10-09 15:07:00 18.00 /min Hans F Mukund BP Systolic 2024-10-04 10:56:00 104 mm[Hg] Step hen F Mukund BP Diastolic 2024-10-04 10:56:00 75 mm[Hg] Dandre phen F Mukund Weight Measured 2024-10-04 10:56:00 139.40 pounds Hans F Mukund Height Measured 2024-10-04 10:56:00 61.00 inches Hans F Mukund Body Temperature 2024-10-04 10:56:00 98.00 degrees Hans F Mukund Heart Rate 2024-10-04 10:56:00 100.00 /min Step hen F Mukund Respiratory Rate 2024-10-04 10:56:00 16.00 /min Hans F Mukund BP Systolic 2024-09-20 10:12:00 130 mm[Hg] Step hen F Mukund BP Diastolic 2024-09-20 10:12:00 84 mm[Hg] Dandre phen F Mukund Weight Measured 2024-09-20 10:12:00 140.80 pounds Hans F Mukund Height Measured 2024-09-20 10:12:00 61.00 inches Hans F Mukund Body Temperature 2024-09-20 10:12:00 98.10 degrees Hans F Mukund Heart Rate 2024-09-20 10:12:00 90.00 /min Rayna en F Mukund Respiratory Rate 2024-09-20 10:12:00 16.00 /min Hans F Mukund BP Systolic 2024-09-12 14:45:00 123 mm[Hg] Step hen F Mukund BP Diastolic 2024-09-12 14:45:00 83 mm[Hg] Dandre phen F Mukund Weight Measured 2024-09-12 14:45:00 141.40 pounds Hans F Mukund Height Measured 2024-09-12 14:45:00 61.00 inches Hans F Mukund Body Temperature 2024-09-12 14:45:00 97.80 degrees Hans F Mukund Heart Rate 2024-09-12 14:45:00 90.00 /min Rayna en F Mukund Respiratory Rate 2024-09-12 14:45:00 16.00 /min Hans F Mukund BP Systolic 2024-09-06 16:08:00 123 mm[Hg] Step hen F Mukund BP Diastolic 2024-09-06 16:08:00 83 mm[Hg] Dandre phen F Mukund Weight Measured 2024-09-06 16:08:00 144.40 pounds Hans F Mukund Height Measured 2024-09-06 16:08:00 61.00 inches Hans F Mukund Body Temperature 2024-09-06 16:08:00 97.90 degrees Hans F Mukund Heart Rate 2024-09-06 16:08:00 83.00 /min Rayna en F Mukund Respiratory Rate 2024-09-06 16:08:00 16.00 /min Hans F Mukund BP Systolic 2024-09-06 10:48:00 123 mm[Hg] Step hen F Mukund BP Diastolic 2024-09-06 10:48:00 83 mm[Hg] Dandre phen F Mukund Weight Measured 2024-09-06 10:48:00 144.40 pounds Hans F Mukund Height Measured 2024-09-06 10:48:00 61.00 inches Hans F Mukund Body Temperature 2024-09-06 10:48:00 97.90 degrees Hans F Mukund Heart Rate 2024-09-06 10:48:00 83.00 /min Rayna en F Mukund Respiratory Rate 2024-09-06 10:48:00 16.00 /min Hans F Mukund BP Systolic 2024-08-17 14:44:00 117 mm[Hg] Step hen F Mukund BP Diastolic 2024-08-17 14:44:00 82 mm[Hg] Dandre phen F Mkuund Weight Measured 2024-08-17 14:44:00 143.60 pounds Hans F Mukund Height Measured 2024-08-17 14:44:00 61.00 inches Hans F Mukund Body Temperature 2024-08-17 14:44:00 97.70 degrees Hans F Mukund Heart Rate 2024-08-17 14:44:00 Rayna en F Mukund Respiratory Rate 2024-08-17 14:44:00 Hans F Mukund BP Systolic 2024-08-09 15:31:00 123 mm[Hg] Step hen F Mukund BP Diastolic 2024-08-09 15:31:00 79 mm[Hg] Dandre phen F Mukund Weight Measured 2024-08-09 15:31:00 141.60 pounds Hans F Mukund Height Measured 2024-08-09 15:31:00 61.00 inches Hans F Mukund Body Temperature 2024-08-09 15:31:00 97.80 degrees Hans F Mukund Heart Rate 2024-08-09 15:31:00 69.00 /min Rayna en F Mukund Respiratory Rate 2024-08-09 15:31:00 19.00 /min Hans F Mukund BP Systolic 2024-07-26 11:18:00 123 mm[Hg] Step hen F Mukund BP Diastolic 2024-07-26 11:18:00 83 mm[Hg] Dandre phen F Mukund Weight Measured 2024-07-26 11:18:00 142.60 pounds Hans F Mukund Height Measured 2024-07-26 11:18:00 61.00 inches Hans F Mukund Body Temperature 2024-07-26 11:18:00 97.90 degrees Hans F Mukund Heart Rate 2024-07-26 11:18:00 85.00 /min Rayna en F Mukund Respiratory Rate 2024-07-26 11:18:00 18.00 /min Hans F Mukund BP Systolic 2023-07-12 10:51:00 113 mm[Hg] Step hen F Mukund BP Diastolic 2023-07-12 10:51:00 73 mm[Hg] Dandre phen F Mukund Weight Measured 2023-07-12 10:51:00 171.80 pounds Hans F Mukund Height Measured 2023-07-12 10:51:00 61.00 inches Hans F Mukund Body Temperature 2023-07-12 10:51:00 98.20 degrees Hans F Mukund Heart Rate 2023-07-12 10:51:00 87.00 /min Rayna en F Mukund Respiratory Rate 2023-07-12 10:51:00 Hans F Mukund BP Systolic 2023-07-07 09:28:00 123 mm[Hg] Step hen F Mukund BP Diastolic 2023-07-07 09:28:00 88 mm[Hg] Dandre phen F Mukund Weight Measured 2023-07-07 09:28:00 139.00 pounds Hans Duval Height Measured 2023-07-07 09:28:00 61.00 inches Hans Duval Body Temperature 2023-07-07 09:28:00 97.60 degrees Hans Duval Heart Rate 2023-07-07 09:28:00 103.00 /min Kain Duval Respiratory Rate 2023-07-07 09:28:00 Hans Duval BP Systolic 2022-08-16 11:12:00 Step hen Zoraida Duval BP Diastolic 2022-08-16 11:12:00 Dandre Duval Weight Measured 2022-08-16 11:12:00 133.20 pounds Hans Duval Height Measured 2022-08-16 11:12:00 61.00 inches Hans Duval Body Temperature 2022-08-16 11:12:00 Hans Duval Heart Rate 2022-08-16 11:12:00 Rayna Dvual Respiratory Rate 2022-08-16 11:12:00 Hans Duval Procedures Procedure Date / Time Performed Performing Clinician Source US FIRST TRIMESTER LESS THAN 14 WEEKS WITH TRANSVAGINAL 2024-09-10 03:33:44 Judi Dominique [facility] POCT TEST 2024-09-10 00:30:00 Judi Elizalde [facility] COMP. METABOLIC PANEL ([id number]) 2024-09-10 00:27:00 Judi Dominique [facility] TOTAL BETA HCG ASSAY 2024-09-10 00:27:00 Judi Bishop [facility] CBC WITH DIFF 2024-09-10 00:27:00 Judi Dominique [facility] URINALYSIS 2024-09-10 00:27:00 Judi Dominique [facility] HB ABO GROUPING 2024-09-10 00:27:00 Judi Dominique [facility] URINALYSIS 2024-07-28 02:39:00 Judi Dominique [facility] TOTAL BETA HCG ASSAY 2024-07-28 01:38:00 Judi Bishop [facility] LIPASE 2024-07-28 01:34:00 Judi Dominique [facility] COMP. METABOLIC PANEL ([id number]) 2024-07-28 01:34:00 Judi Dominique [facility] CBC WITH DIFF 2024-07-28 01:33:00 Judi Dominique [facility] LACTIC ACID WHOLE BLOOD 2024-07-28 01:32:00 Judi Jacobson [facility] US FIRST TRIMESTER LESS THAN 14 WEEKS WITH TRANSVAGINAL 2024-07-28 00:43:10 Judi Dominique [facility] POCT TEST 2024-07-27 23:55:00 Judi Elizalde [facility] XR CHEST 2 VW 2024-01-31 17:47:17 Checo Tapia [facility] POCT TEST 2024-01-31 16:37:00 Petrona Tapia [facility] ASSIGNMENT OF BENEFITS 2024-01-31 16:34:48 Docto r Unassigned, Clymer [facility] LIPASE 2024-01-31 16:23:00 [facility]co [facility] TROPONIN I 2024-01-31 16:23:00 [facility] COMP. METABOLIC PANEL ([id number]) 2024-01-31 16:23:00 Checo Tapia [facility] CBC WITH DIFF 2024-01-31 16:23:00 Checo Tapia U [facility] D-DIMER 2024-01-31 16:23:00 Checo [facility] 2024-01-31 16:23:00 Checo [facility] RAPID INFLUENZA A/B 2024-01-31 16:23:00 Petrona Tapia [facility] N-TERMINAL PRO-BNP 2024-01-31 16:23:00 Annelise Tapia [facility] COVID-19 (ID NOW RAPID TESTING) 2024-01-31 16:23:00 Checo Tapia [facility] CONSENT/REFUSAL FOR DIAGNOSIS AND TREATMENT 2024-01-31 15:48:32 Doctor Unassigned, Clymer [facility] US PELVIS COMPLETE WITH TRANSVAGINAL 2023-08-14 23:13:17 Krys Morgan [facility] COMP. METABOLIC PANEL ([id number]) 2023-08-14 21:29:00 Krys Morgan [facility] TOTAL BETA HCG ASSAY 2023-08-14 21:29:00 Krys Morgan [facility] CBC WITH DIFF 2023-08-14 21:29:00 Krys Morgan [facility] URINALYSIS 2023-08-14 21:29:00 Krys Morgan [facility] HB ABO GROUPING 2023-08-14 21:29:00 [facility] GLUCOSE & PROTEIN 2023-08-10 17:50:00 Melissa Garvin [facility] TOTAL BETA HCG ASSAY 2023-08-07 18:11:00 Laureano Wild [facility] FIRST TRIMESTER ULTRASOUND 2023-08-04 19:49:00 Radha Peterson [facility] TOTAL BETA HCG ASSAY 2023-08-04 16:20:00 Camilla Momin [facility] PHYSICIAN ORDERS 2023-08-04 05:01:00 Doctor Unas signed, Clymer [facility] FIRST TRIMESTER ULTRASOUND 2023-08-01 13:27:00 Hallie Obregon [facility] POCT SARS-COV-2 ANTIGEN (BINAX NOW) 2023-07-25 16:28:00 Audie Fuentes [facility] POCT MOLECULAR STREP 2023-07-25 16:23:00 Unknown, Atte yancy [facility] GLUCOSE 1 HOUR POST PRANDIAL 2023-07-13 14:16:00 Hallie Obregon [facility] CBC WITH DIFF 2023-07-13 14:16:00 Hallie Obregon [facility] HB ABO GROUPING 2023-07-13 14:16:00 Hallie Obregon [facility] PAP SMEAR-LIQUID BASED-CP 2023-07-13 14:16:00 Hallie Obregon [facility] POCT TEST 2023-07-13 13:10:00 Brandin Dduley [facility] POCT URINALYSIS W/O SPECIFIC GRAVITY 2023-07-13 13:10:00 Bonita Dudley [facility] ASSIGNMENT OF BENEFITS 2023-07-13 12:36:36 Docto r Unassigned, Clymer [facility] LIPASE 2022 03:42:00 Amy Sherman [facility] COMP. METABOLIC PANEL ([id number]) 2022 03:42:00 Amy Sherman [facility] CBC WITH DIFF 2022 03:42:00 Amy Sherman [facility] URINALYSIS 2022 03:42:00 Amy Sherman [facility] US ABDOMEN LIMITED 2022-06-28 10:00:19 Piero Godoy [facility] CT ABDOMEN PELVIS W CONTRAST 2022-06-28 07:17:50 Piero Godoy [facility] LIPASE 2022-06-28 06:04:[address] [facility] TEST, SERUM 2022-06-28 06:04:00 Piero Godoy [facility] HEPATIC FUNCTION PANEL ([id number]) (ALB,T.PRO,BILI T,BU/BC,ALT,AST,ALK PHOS) 2022-06-28 06:04:00 Piero Godoy [facility] BASIC METABOLIC PANEL (NA, K, CL, CO2, GLUCOSE, BUN, CREATININE, CA) 2022-06-28 06:04:00 Piero Godoy [facility] CBC WITH DIFF 2022-06-28 06:04:00 Piero Godoy [facility] URINALYSIS 2022-06-28 06:04:[address] [facility] LACTIC ACID WHOLE BLOOD 2022-06-28 06:04:00 Kamila Godoy [facility] COVID-19 (ID NOW RAPID TESTING) 2022-06-28 06:04:00 Piero Godoy [facility] CONSENT/REFUSAL FOR DIAGNOSIS AND TREATMENT 2022-06-28 05:38:00 Doctor Unassigned, Clymer [facility] Encounters Start Date/Time End Date/Time Encounter Type Admission Type Attending Clinicians Care Facility Care Department Encounter ID Source 2024-11-09 13:45:00 2024-11-09 13:45:00 Outpatient [facility] [id number] [facility] 2024-10-26 09:30:00 2024-10-26 10:57:36 Education Saima Boucher Genetic Counselor, Center Suzanne Montenegro [facility] [address] 1.2.840.114 350.1.13.58 9.2.7.2.686 [id number] [facility] 2024-10-26 07:30:00 2024-10-26 10:13:48 Outpatient [facility] [id number] [facility] 2024-10-24 09:30:00 2024-10-24 09:30:00 Outpatient [facility] [id number] [facility] 2024-10-24 07:30:00 2024-10-24 07:30:00 Outpatient [facility] [id number] [facility] 2024-10-23 00:00:00 2024-10-23 09:34:01 Nurse Only Kaylah Starks Miranda [facility] [address] 1.2.840.114 350.1.13.58 9.2.7.2.686 [id number] [facility] 2024-10-18 11:23:01 2024-10-18 11:23:01 Outpatient SFA S[facility] [id number] Hans Duval 2024-10-18 00:00:00 2024-10-18 00:00:00 Outpatient Visit SFA [id number] Hans Duval 2024-10-09 14:51:59 2024-10-09 14:51:59 Outpatient SFA SFA [id number] Hans Duval 2024-10-09 00:00:00 2024-10-09 00:00:00 Outpatient Visit SFA [id number] Hans Duval 2024-10-04 10:50:35 2024-10-04 10:50:35 Outpatient SFA [id number] [id number] Hans Duval 2024-10-04 00:00:00 2024-10-04 00:00:00 Outpatient Visit SFA [id number] Hans Duval 2024-09-27 09:27:20 2024-09-27 09:27:20 Outpatient SFA SFA [id number] Hans Duval 2024-09-25 10:05:51 2024-09-25 10:05:51 Outpatient SFA SFA [id number] Hans Duval 2024-09-24 11:25:22 2024-09-24 11:25:22 Outpatient SFA SFA [id number] Hans Duval 2024-09-20 09:59:22 2024-09-20 09:59:22 Outpatient SFA SFA [id number] Hans Duval 2024-09-20 00:00:00 2024-09-20 00:00:00 Outpatient Visit SFA [id number] Hans Duval 2024-09-12 00:00:00 2024-09-12 00:00:00 Outpatient Visit SFA [id number] Hans Duval 2024-09-09 19:01:00 2024-09-09 23:44:00 Emergency X FARRAH KRISTINA RASMUSSEN [facility] [id number] [facility] 2024-09-09 19:01:00 2024-09-09 23:44:00 Emergency AufderJudi kay Kristina Long [facility] 1.2.840.114 350.1.13.10 4.2.7.2.[id number] [facility] 2024-09-06 13:59:39 2024-09-06 13:59:39 Outpatient SFA SFA [id number] Hans Duval 2024-09-06 00:00:00 2024-09-06 00:00:00 Outpatient Visit SFA [id number] Hans Duval 2024-08-17 14:36:44 2024-08-17 14:36:44 Outpatient SFA [id number] [id number] Hans Duval 2024-08-17 00:00:00 2024-08-17 00:00:00 Outpatient Visit SFA [id number] Hans Duval 2024-08-16 14:49:48 2024-08-16 14:49:48 Outpatient SFA [id number] [id number] Hans Duval 2024-08-09 16:37:25 2024-08-09 16:37:25 Outpatient SFA SFA [id number] Hans Duval 2024-08-09 00:00:00 2024-08-09 00:00:00 Outpatient Visit SFA [id number] Hans Duval 2024-07-31 11:01:03 2024-07-31 11:01:03 Outpatient SFA SFA [id number] Hans Duval 2024-07-27 16:14:00 2024-07-27 22:59:00 Emergency Judi Dominique [facility] 1.2.840.114 350.1.13.10 4.2.7.2.[id number] [facility] 2024-07-27 00:00:00 2024-07-27 00:00:00 Outpatient R JUDI DOMINIQUE CHRISTOPHERANNE-MARIE JUDI [facility] E[facility] [id number] [facility] 2024-07-26 11:17:17 2024-07-26 11:17:17 Outpatient SFA SFA [id number] Hans Duval 2024-06-05 09:28:41 2024-06-05 09:28:41 Outpatient SFA [facility] [id number] Hans Duval 2024-04-13 11:22:04 2024-04-13 11:22:04 Outpatient SFA [facility] [id number] Hans Duval 2024-01-31 11:03:00 2024-01-31 14:03:00 Emergency X CHECO TAPIA [facility] [id number] [facility] 2024-01-31 11:03:00 2024-01-31 14:03:00 Emergency Checo Tapia [facility] 1..840.114 350.1.13.10 4.2.7.2.[id number] [facility] 2023-12-07 13:43:21 2023-12-07 13:43:21 Outpatient SFA SFA [id number] Hans Duval 2023-10-12 14:26:01 2023-10-12 14:26:01 Outpatient SFA SFA [id number] Hans Duval 2023-09-20 16:00:00 2023-09-20 16:00:00 Office Visit Bonita Dudley [facility] [place] [facility] [place] OPERATOR [facility] 1.2.840.114 350.1.13.10 4.2.7.2.[id number] [facility] 2023-09-20 16:00:00 2023-09-20 15:18:53 Outpatient R BONITA DUDLEY [facility] [id number] [facility] 2023-09-20 15:00:00 2023-09-20 15:00:00 Outpatient R HALLIE OBREGON [facility] [id number] [facility] 2023-09-20 00:00:00 2023-09-20 00:00:00 Letter (Out) Bonita Dudley [facility] [place] [employer] [place] OPERATOR [facility]ILD [facility] 1.2.840.114 350.1.13.10 4.2.7.2.[id number] [facility] 2023-09-13 15:00:00 2023-09-13 15:00:00 Outpatient R [facility] [id number] [facility] 2023-09-13 10:30:00 2023-09-13 10:45:00 Cloth Worker Visit Lab, Aria [facility] [employer] [employer] [place] [place] OPERATOR [facility]ILD [facility] 1.2.840.114 350.1.13.10 4.2.7.2.[id number] [facility] 2023-09-13 10:30:00 2023-09-13 10:30:00 Outpatient R [facility] [id number] [facility] 2023-09-07 16:47:06 2023-09-07 16:47:06 Outpatient [facility] [id number] Hans F Mukund 2023-09-06 10:30:00 2023-09-06 10:30:00 Outpatient R [facility] [id number] [facility] 2023-09-01 15:00:00 2023-09-01 15:16:55 Cloth Worker Visit Lab, Bonita Armenta [facility] [employer] [employer] [place] [place] OPERATOR [facility] 1.2.840.114 350.1.13.10 4.2.7.2.[id number] [facility] 2023-09-01 15:00:00 2023-09-01 15:00:00 Outpatient R BONITA DUDLEY [facility] [id number] [facility] 2023-09-01 00:00:00 2023-09-01 00:00:00 Telephone Bonita Dudley [facility] [employer] [employer] [place] OPERATOR [facility]ILD [facility] 1.2.840.114 350.1.13.10 4.2.7.2.[id number] [facility] 2023-09-01 00:00:00 2023-09-01 00:00:00 Letter (Out) Bonita Dudley [facility] [place] [employer] [place] OPERATOR [facility] CHILD [facility] 1.2.840.114 350.1.13.10 4.2.7.2.[id number] [facility] 2023-08-30 10:15:00 2023-08-30 10:30:00 Cloth Worker Visit Lab, JassonRmHallie Millan [facility] [place] [employer] [place] OPERATOR [facility] CHILD [facility] 1.2.840.114 350.1.13.10 4.2.7.2.[id number] [facility] 2023-08-24 00:00:00 2023-08-24 00:00:00 Telephone Jessie [facility] 1.2.840.114 350.1.13.10 4.2.7.2.[id number] [facility] 2023-08-24 00:00:00 2023-08-24 00:00:00 [facility] 1.2.840.114 350.1.13.10 4.2.7.2.[id number] [facility] 2023-08-23 10:30:00 2023-08-23 10:45:00 Cloth Worker Visit Lab, [facility] [place] [employer] [place] OPERATOR [facility]ILD [facility] 1.840.114 350.1.13.10 4.2.7.2.[id number] [facility] 2023-08-16 13:15:00 2023-08-16 13:29:28 Outpatient R BONITA DUDLEY [facility] [id number] [facility] 2023-08-16 13:15:00 2023-08-16 13:29:28 Cloth Worker Visit Lab, [facility] Bonita Dudley [facility] [place] [employer] [place] OPERATOR [facility] & [facility]ILD [facility] 1.840.114 350.1.13.10 4.2.7.2.[id number] [facility] 2023-08-16 10:30:00 2023-08-16 10:30:00 Outpatient R [facility] [id number] [facility] 2023-08-14 16:02:00 2023-08-14 20:27:00 Emergency X Krys MOR[facility] [id number] [facility] 2023-08-14 16:02:00 2023-08-14 20:27:00 Emergency Krys Morgan [facility] 1.840.114 350.1.13.10 4.2.7.2.686 [id number] [facility] 2023-08-10 13:00:00 2023-08-10 14:27:16 Outpatient MELISSA VELÁZQUEZ [facility] [id number] [facility] 2023-08-10 13:00:00 2023-08-10 14:27:16 Routine Visit Pgy1 Melissa Garvin [facility] 1.2.840.114 350.1.13.10 4.2.7.2.[id number] [facility] 2023-08-10 12:15:00 2023-08-10 12:30:00 Cloth Worker Visit Lab, [facility] LisaMelissa [facility] 1.2.840.114 350.1.13.10 4.2.7.2.[id number] [facility] 2023-08-10 07:45:00 2023-08-10 07:45:00 Outpatient R HALLIE OBREGON [facility] [id number] [facility] 2023-08-10 00:00:00 2023-08-10 00:00:00 Case Management [facility] 1.2.840.114 350.1.13.10 4.2.7.2.[id number] [facility] 2023-08-10 00:00:00 2023-08-10 00:00:00 Case Management [facility] 1.2.840.114 350.1.13.10 4.2.7.2.[id number] [facility] 2023-08-07 12:32:00 2023-08-07 18:00:00 Outpatient P ADORE GARCIA [facility] [id number] [facility] 2023-08-07 12:32:00 2023-08-07 18:00:00 Hospital Encounter [facility] 1.2.840.114 350.1.13.10 4.2.7.2.[id number] [facility] 2023-08-05 09:17:12 2023-08-05 09:17:12 Outpatient TRUDY [facility] [id number] Hans Duval 2023-08-04 14:30:00 2023-08-05 08:05:24 Cloth Worker Visit 2, [facility] Usg Room NicholasRadha Chasey [facility] 1..114 350.1.13.10 4.2.7.2.[id number] [facility] 2023-08-04 10:20:00 2023-08-04 17:08:47 Outpatient R RADHA PETERSON [facility] [id number] [facility] 2023-08-04 10:20:00 2023-08-04 17:08:47 Routine Visit Tr[facility], [facility] 1..114 350.1.13.10 4.2.7.2.[id number] [facility] 2023-08-04 00:00:00 2023-08-04 00:00:00 Orders Only Doctor Unassigned, Clymer [facility] 1..114 350.1.13.10 4.2.7.2.[id number] [facility] 2023-08-03 00:00:00 2023-08-03 00:00:00 Telephone Hallie Obregon [facility] OPERATOR [facility] 1..114 350.1.13.10 4.2.7.2.[id number] [facility] 2023-08-01 08:30:00 2023-08-01 08:38:10 Cloth Worker Visit Lab, [facility] Driss Zendejas [facility] [place] [facility] OPERATOR [facility] 1..114 350.1.13.10 4.2.7.2.[id number] [facility] 2023-08-01 08:00:00 2023-08-01 08:37:25 Outpatient P CIRA ANDREWSCARL DRISS Mart [facility] [id number] [facility] 2023-08-01 08:00:00 2023-08-01 08:37:25 Cloth Worker Visit Ultrasound, Billy-mitesh Driss Zendejas [facility] [place] [facility] [place] OPERATOR [facility] & CHILD [facility] 1.2.840.114 350.1.13.10 4.2.7.2.[id number] [facility] 2023-08-01 00:00:00 2023-08-01 00:00:00 Telephone Bonita Dudley [facility] [place] [place] OPERATOR [facility] & CHILD [facility] 1..840.114 350.1.13.10 4.2.7.2.[id number] [facility] 2023-08-01 00:00:00 2023-08-01 00:00:00 Case Management Hallie Obregon [facility] [place] [facility] [place] OPERATOR [facility] & CHILD [facility] 1..840.114 350.1.13.10 4.2.7.2.[id number] [facility] 2023-07-25 10:20:00 2023-07-25 11:50:42 Outpatient R AUDIE FUENTES [facility] [id number] [facility] 2023-07-25 10:20:00 2023-07-25 10:40:00 Urgent Care Audie Fuentes Unknown, Attending [facility] 1..840.114 350.1.13.10 4.2.7.2.[id number] [facility] 2023-07-21 17:46:47 2023-07-21 17:46:47 Outpatient SFA [facility] [id number] Hans Duval 2023-07-13 08:15:00 2023-07-13 09:22:15 Outpatient R HALLIE OBREGON [facility] [id number] [facility] 2023-07-13 08:15:00 2023-07-13 09:22:15 Initial Visit Sabas Hallie Smith [facility] [place] [facility] [place] OPERATOR [facility] 1.840.114 350.1.13.10 4.2.7.2.[id number] [facility] 2023-07-13 00:00:00 2023-07-13 00:00:00 Orders Only Doctor Unassigned, Clymer [facility] 1.0.114 350.1.13.10 4.2.7.2.[id number] [facility] 2023-07-12 10:37:34 2023-07-12 10:37:34 Outpatient [facility] [id number] Hans Duval 2023-07-08 10:56:29 2023-07-08 10:56:29 Outpatient [facility] [id number] Hans Duval 2023-07-07 09:25:49 2023-07-07 09:25:49 Outpatient [facility] [id number] Hans Duval 2022-06-30 22:08:00 2022 00:58:00 Emergency X ADITIAMY JAIME [facility] E[facility] [id number] [facility] 2022-06-30 22:08:00 2022 00:58:00 Emergency AditireaganSelena gallegospaolo S [facility] 1.84.114 350.1.13.10 4.2.7.2.[id number] [facility] 2022-06-28 00:35:00 2022-06-28 06:26:00 Emergency Hans Escamilla [facility] 1.840.114 350.1.13.10 4.2.7.2.[id number] [facility] 2022-06-28 00:35:00 2022-06-28 06:26:00 Emergency X PIERO GODOY [facility] [id number] [facility] 2021-07-15 00:00:00 2021-07-15 00:00:00 [facility] 1.2.840.114 350.1.13.10 4.2.7.2.[id number] [facility] 2021-07-15 00:00:00 2021-07-15 00:00:00 Letter (Out) [facility] 1.2.840.114 350.1.13.10 4.2.7.2.[id number] [facility] 2021-07-15 00:00:00 2021-07-15 00:00:00 Telephone Haritha Tian [facility] 1.2.840.114 350.1.13.10 4.2.7.2.[id number] [facility] 2021-07-14 09:17:57 2021-07-14 09:32:57 Laboratory Only Only, Ang Db Test Shantel Buchanan [facility] Abraham?[facility]ahl[facility] 1.2.840.114 350.1.13.10 4.2.7.2.[id number] [facility] 2021-07-14 09:30:00 2021-07-14 09:30:00 Outpatient R GORDON SHANTEL [facility] [id number] [facility] Results Test Description Test Time Test Comments Results Result Co mments Source Hans Pedro [id number] 00:00:00* Test Item Value Reference Range Interpretation Comme nts CULTURE, URINE (test code = 60714) SPECIMEN NUMBER: [id number] Hans Pedro [id number] 00:00:00* Test Item Value Reference Range Interpretation Comme nts CULTURE, URINE (test code = 06305) SPECIMEN NUMBER: [id number] Hans Pedro, [id number] 00:00:00* Test Item Value Reference Range Interpretation Comme nts CULTURE, URINE (test code = 26059) SPECIMEN NUMBER: [id number] Hans Pedro [id number] 00:00:00* Test Item Value Reference Range Interpretation Comme nts CULTURE, URINE (test code = 17613) SPECIMEN NUMBER: [id number] Hans Conway AustinH. PYLORI (BREATH)2024-09-25 13:49:45* Test Item Value Reference Range Interpretation Comme nts H. PYLORI (BREATH) (test code = 15306) POSITIVE NEGATIVE A UNLESS OTHER ESCALERA INDICATED, ALL TESTING PERFORMED AT [facility] [address] [place] [address] VIDEO CONFERENCE SPECIALIST: TAYLOR NG M.D. CLIA NUMBER [id number] [facility] [place]. [id number] H. PYLORI (BREATH)2024-09-25 00:00:00* Test Item Value Reference Range Interpretation Comme nts H. PYLORI (BREATH) (test cod e = 83764) POSITIVE Hans Conway AustinH. PYLORI (BREATH)2024-09-25 00:00:00* Test Item Value Reference Range Interpretation Comme nts H. PYLORI (BREATH) (test cod e = 40474) POSITIVE Hans Conway AustinH. PYLORI (BREATH)2024-09-25 00:00:00* Test Item Value Reference Range Interpretation Comme nts H. PYLORI (BREATH) (test cod e = 48410) POSITIVE Hans Conway AustinH. PYLORI (BREATH)2024-09-25 00:00:00* Test Item Value Reference Range Interpretation Comme nts H. PYLORI (BREATH) (test cod e = 09071) POSITIVE Hans Conway AustinHorizon [facility] ([employer]ARD)2024-09-19 00:00:00* Test Item Value Reference Range Interpretation Comme nts Report Summary (test code = REPORT_SUMMARY) Negative Alpha-Thalassemia (test code = 94914) Negative Beta-Hemoglobinopathies (janes t code = 87554) Negative Juana Disease (test code = 19402) Negative Cystic Fibrosis (test code = 67436) Negative Duchenne/Murillo Muscular Dys trophy (test code = 66949) Negative Familial Dysautonomia (test code = 15446) Negative Fragile X Syndrome (test cod e = 51014) Negative Galactosemia (test code = 20196) Negative Gaucher Disease (test code = 92379) Negative Medium Chain Acyl-CoA Dehydr ogenase Deficiency (test code = 62477) Negative Polycystic Kidney Disease, Autosomal Recessive (test code = 40075) Negative Hiqmc-Ivblv-Nrpwf Syndrome ( test code = 75360) Negative Spinal Muscular Atrophy (janes t code = 56284) Negative Bandar-Sachs Disease (test code = 88021) Negative Panel Notes (test code = CS_PANEL_NOTES) See Notes Report Note (test code = REPORT_NOTE) See Notes Footnotes (test code = FOOTNOTES) See Notes PDF Report (test code = EMBEDDED_PDF) PDF Hans Grafn 14 ([employer]ULTE[employer]ETHNIC STANDARD)2024-09-19 00:00:00* Test Item Value Reference Range Interpretation Comme nts Report Summary (test code = REPORT_SUMMARY) Negative Alpha-Thalassemia (test code = 59169) Negative Beta-Hemoglobinopathies (janes t code = 06626) Negative Juana Disease (test code = 85348) Negative Cystic Fibrosis (test code = 79916) Negative Duchenne/Murillo Muscular Dys trophy (test code = 19359) Negative Familial Dysautonomia (test code = 27561) Negative Fragile X Syndrome (test cod e = 35763) Negative Galactosemia (test code = 25184) Negative Gaucher Disease (test code = 25195) Negative Medium Chain Acyl-CoA Dehydr ogenase Deficiency (test code = 29206) Negative Polycystic Kidney Disease, Autosomal Recessive (test code = 48567) Negative Cghpu-Tvtwn-Metnf Syndrome ( test code = 81069) Negative Spinal Muscular Atrophy (janes t code = 11525) Negative Bandar-Sachs Disease (test code = 44357) Negative Panel Notes (test code = CS_PANEL_NOTES) See Notes Report Note (test code = REPORT_NOTE) See Notes Footnotes (test code = FOOTNOTES) See Notes PDF Report (test code = EMBEDDED_PDF) PDF Hans Seymourzon 14 (SCHULTE[employer]ETHNIC STANDARD)2024-09-19 00:00:00* Test Item Value Reference Range Interpretation Comme nts Report Summary (test code = REPORT_SUMMARY) Negative Alpha-Thalassemia (test code = 02320) Negative Beta-Hemoglobinopathies (janes t code = 25955) Negative Juana Disease (test code = 89830) Negative Cystic Fibrosis (test code = 96053) Negative Duchenne/Murillo Muscular Dys trophy (test code = 91093) Negative Familial Dysautonomia (test code = 30161) Negative Fragile X Syndrome (test cod e = 03284) Negative Galactosemia (test code = 21154) Negative Gaucher Disease (test code = 16661) Negative Medium Chain Acyl-CoA Dehydr ogenase Deficiency (test code = 43522) Negative Polycystic Kidney Disease, Autosomal Recessive (test code = 15370) Negative Qpurx-Kpgxv-Pdxlk Syndrome ( test code = 47083) Negative Spinal Muscular Atrophy (janes t code = 33103) Negative Bandar-Sachs Disease (test code = 25196) Negative Panel Notes (test code = CS_PANEL_NOTES) See Notes Report Note (test code = REPORT_NOTE) See Notes Footnotes (test code = FOOTNOTES) See Notes PDF Report (test code = EMBEDDED_PDF) PDF Hans DuvalYobany 14 (SCUHLTE-ETHNIC STANDARD)2024-09-19 00:00:00* Test Item Value Reference Range Interpretation Comme nts Report Summary (test code = REPORT_SUMMARY) Negative Alpha-Thalassemia (test code = 18957) Negative Beta-Hemoglobinopathies (janes t code = 05715) Negative Juana Disease (test code = 48497) Negative Cystic Fibrosis (test code = 28694) Negative Duchenne/Murillo Muscular Dys trophy (test code = 83333) Negative Familial Dysautonomia (test code = 75216) Negative Fragile X Syndrome (test cod e = 35057) Negative Galactosemia (test code = 73698) Negative Gaucher Disease (test code = 34867) Negative Medium Chain Acyl-CoA Dehydr ogenase Deficiency (test code = 33213) Negative Polycystic Kidney Disease, Autosomal Recessive (test code = 16101) Negative Fdmzd-Plbnm-Xkvrt Syndrome ( test code = 08899) Negative Spinal Muscular Atrophy (janes t code = 26737) Negative Bandar-Sachs Disease (test code = 87984) Negative Panel Notes (test code = CS_PANEL_NOTES) See Notes Report Note (test code = REPORT_NOTE) See Notes Footnotes (test code = FOOTNOTES) See Notes PDF Report (test code = EMBEDDED_PDF) PDF Hans Dawn NIPT [id number] 00:00:00* Test Item Value Reference Range Interpretation Comme nts Report Summary (test code = REPORT_SUMMARY) LOW RISK Report Note (test code = REPORT_NOTE) See Notes Trisomy 13 Age-Based Risk Text (test code = NPT_T13_AGE_BASED_RISK_TEX T) 1/401 (0.25%) Trisomy 13 Risk Score Text (test code = NPT_T13_RISK_SCORE_TEXT) <1/10,000 (<0.01%) Trisomy 13 Result Text (test code = NPT_T13_RESULT_TEXT) Low Risk Trisomy 18 Age-Based Risk Text (test code = NPT_T18_AGE_BASED_RISK_TEX T) 1/126 (0.79%) Trisomy 18 Risk Score Text (test code = NPT_T18_RISK_SCORE_TEXT) <1/10,000 (<0.01%) Trisomy 18 Result Text (test code = NPT_T18_RESULT_TEXT) Low Risk Trisomy 21 Age-Based Risk Text (test code = NPT_T21_AGE_BASED_RISK_TEX T) 1/62 (1.61%) Trisomy 21 Risk Score Text (test code = NPT_T21_RISK_SCORE_TEXT) <1/10,000 (<0.01%) Trisomy 21 Result Text (test code = NPT_T21_RESULT_TEXT) Low Risk Monosomy X Age-Based Risk Text (test code = NPT_X_AGE_BASED_RISK_TEXT) 1/255 (0.39%) Monosomy X Risk Score Text (test code = NPT_X_RISK_SCORE_TEXT) <1/10,000 (<0.01%) Monosomy X Result Text (test code = NPT_X_RESULT_TEXT) Low Risk 22q11.2 Deletion Syndrome Population-Based Risk Text (test code = NPT_22Q_POP_BASED_RISK_TEX T) /2,000 22q11.2 Deletion Syndrome Risk Score Text (test code = NPT_22Q_RISK_SCORE_TEXT) 11/25, 22q11.2 Deletion Syndrome Result Text (test code = NPT_22Q_RESULT_TEXT) Low Risk Triploidy Result Text (test code = NPT_TRI_RESULT_TEXT) Low Risk Gender of Fetus (test code = GENDER_OF_FETUS) Female Fraction (test code = FETAL_FRACTION_STRING) 9.6% Footnotes (test code = FOOTNOTES) See Notes PDF Report (test code = EMBEDDED_PDF) PDF Hans Dawn NIPT [id number] 00:00:00* Test Item Value Reference Range Interpretation Comme nts Report Summary (test code = REPORT_SUMMARY) LOW RISK Report Note (test code = REPORT_NOTE) See Notes Trisomy 13 Age-Based Risk Text (test code = NPT_T13_AGE_BASED_RISK_TEX T) 1/401 (0.25%) Trisomy 13 Risk Score Text (test code = NPT_T13_RISK_SCORE_TEXT) <1/10,000 (<0.01%) Trisomy 13 Result Text (test code = NPT_T13_RESULT_TEXT) Low Risk Trisomy 18 Age-Based Risk Text (test code = NPT_T18_AGE_BASED_RISK_TEX T) 1/126 (0.79%) Trisomy 18 Risk Score Text (test code = NPT_T18_RISK_SCORE_TEXT) <1/10,000 (<0.01%) Trisomy 18 Result Text (test code = NPT_T18_RESULT_TEXT) Low Risk Trisomy 21 Age-Based Risk Text (test code = NPT_T21_AGE_BASED_RISK_TEX T) 1/62 (1.61%) Trisomy 21 Risk Score Text (test code = NPT_T21_RISK_SCORE_TEXT) <1/10,000 (<0.01%) Trisomy 21 Result Text (test code = NPT_T21_RESULT_TEXT) Low Risk Monosomy X Age-Based Risk Text (test code = NPT_X_AGE_BASED_RISK_TEXT) 1/255 (0.39%) Monosomy X Risk Score Text (test code = NPT_X_RISK_SCORE_TEXT) <1/10,000 (<0.01%) Monosomy X Result Text (test code = NPT_X_RESULT_TEXT) Low Risk 22q11.2 Deletion Syndrome Population-Based Risk Text (test code = NPT_22Q_POP_BASED_RISK_TEX T) 2,000 22q11.2 Deletion Syndrome Risk Score Text (test code = NPT_22Q_RISK_SCORE_TEXT) 11/25, 22q11.2 Deletion Syndrome Result Text (test code = NPT_22Q_RESULT_TEXT) Low Risk Triploidy Result Text (test code = NPT_TRI_RESULT_TEXT) Low Risk Gender of Fetus (test code = GENDER_OF_FETUS) Female Fraction (test code = FETAL_FRACTION_STRING) 9.6% Footnotes (test code = FOOTNOTES) See Notes PDF Report (test code = EMBEDDED_PDF) PDF Hans Dawn NIPT [id number] 00:00:00* Test Item Value Reference Range Interpretation Comme nts Report Summary (test code = REPORT_SUMMARY) LOW RISK Report Note (test code = REPORT_NOTE) See Notes Trisomy 13 Age-Based Risk Text (test code = NPT_T13_AGE_BASED_RISK_TEX T) 1/401 (0.25%) Trisomy 13 Risk Score Text (test code = NPT_T13_RISK_SCORE_TEXT) <1/10,000 (<0.01%) Trisomy 13 Result Text (test code = NPT_T13_RESULT_TEXT) Low Risk Trisomy 18 Age-Based Risk Text (test code = NPT_T18_AGE_BASED_RISK_TEX T) 1/126 (0.79%) Trisomy 18 Risk Score Text (test code = NPT_T18_RISK_SCORE_TEXT) <1/10,000 (<0.01%) Trisomy 18 Result Text (test code = NPT_T18_RESULT_TEXT) Low Risk Trisomy 21 Age-Based Risk Text (test code = NPT_T21_AGE_BASED_RISK_TEX T) 1/62 (1.61%) Trisomy 21 Risk Score Text (test code = NPT_T21_RISK_SCORE_TEXT) <1/10,000 (<0.01%) Trisomy 21 Result Text (test code = NPT_T21_RESULT_TEXT) Low Risk Monosomy X Age-Based Risk Text (test code = NPT_X_AGE_BASED_RISK_TEXT) 1/255 (0.39%) Monosomy X Risk Score Text (test code = NPT_X_RISK_SCORE_TEXT) <1/10,000 (<0.01%) Monosomy X Result Text (test code = NPT_X_RESULT_TEXT) Low Risk 22q11.2 Deletion Syndrome Population-Based Risk Text (test code = NPT_22Q_POP_BASED_RISK_TEX T) 1/2,000 22q11.2 Deletion Syndrome Risk Score Text (test code = NPT_22Q_RISK_SCORE_TEXT) 1/12,000 22q11.2 Deletion Syndrome Result Text (test code = NPT_22Q_RESULT_TEXT) Low Risk Triploidy Result Text (test code = NPT_TRI_RESULT_TEXT) Low Risk Gender of Fetus (test code = GENDER_OF_FETUS) Female Fraction (test code = FETAL_FRACTION_STRING) 9.6% Footnotes (test code = FOOTNOTES) See Notes PDF Report (test code = EMBEDDED_PDF) PDF Hans Dawn NIPT [id number] 00:00:00* Test Item Value Reference Range Interpretation Comme nts Report Summary (test code = REPORT_SUMMARY) LOW RISK Report Note (test code = REPORT_NOTE) See Notes Trisomy 13 Age-Based Risk Text (test code = NPT_T13_AGE_BASED_RISK_TEX T) 1/401 (0.25%) Trisomy 13 Risk Score Text (test code = NPT_T13_RISK_SCORE_TEXT) <1/10,000 (<0.01%) Trisomy 13 Result Text (test code = NPT_T13_RESULT_TEXT) Low Risk Trisomy 18 Age-Based Risk Text (test code = NPT_T18_AGE_BASED_RISK_TEX T) 1/126 (0.79%) Trisomy 18 Risk Score Text (test code = NPT_T18_RISK_SCORE_TEXT) <1/10,000 (<0.01%) Trisomy 18 Result Text (test code = NPT_T18_RESULT_TEXT) Low Risk Trisomy 21 Age-Based Risk Text (test code = NPT_T21_AGE_BASED_RISK_TEX T) 162 (1.61%) Trisomy 21 Risk Score Text (test code = NPT_T21_RISK_SCORE_TEXT) <1/10,000 (<0.01%) Trisomy 21 Result Text (test code = NPT_T21_RESULT_TEXT) Low Risk Monosomy X Age-Based Risk Text (test code = NPT_X_AGE_BASED_RISK_TEXT) 1/255 (0.39%) Monosomy X Risk Score Text (test code = NPT_X_RISK_SCORE_TEXT) <1/10,000 (<0.01%) Monosomy X Result Text (test code = NPT_X_RESULT_TEXT) Low Risk 22q11.2 Deletion Syndrome Population-Based Risk Text (test code = NPT_22Q_POP_BASED_RISK_TEX T) 1,000 22q11.2 Deletion Syndrome Risk Score Text (test code = NPT_22Q_RISK_SCORE_TEXT) 11/25, 22q11.2 Deletion Syndrome Result Text (test code = NPT_22Q_RESULT_TEXT) Low Risk Triploidy Result Text (test code = NPT_TRI_RESULT_TEXT) Low Risk Gender of Fetus (test code = GENDER_OF_FETUS) Female Fraction (test code = FETAL_FRACTION_STRING) 9.6% Footnotes (test code = FOOTNOTES) See Notes PDF Report (test code = EMBEDDED_PDF) PDF Hans DuvalHCG, [id number] 00:00:00* Test Item Value Reference Range Interpretation Comme nts HCG, QUANTITATIVE (test code = 2506) 37379 MIU/ML Hans Conway AustinCT/NG, NAAT, [id number] 00:00:00* Test Item Value Reference Range Interpretation Comme nts CHLAMYDIA, NAAT, URINE (test code = 59396) NEGATIVE GONORRHEA, NAAT, URINE (test code = 81572) NEGATIVE Hans DuvalHCG, [id number] 00:00:00* Test Item Value Reference Range Interpretation Comme nts HCG, QUANTITATIVE (test code = 2506) 91444 MIU/ML Hans Conway AustinCT/NG, NAAT, [id number] 00:00:00* Test Item Value Reference Range Interpretation Comme nts CHLAMYDIA, NAAT, URINE (test code = 27003) NEGATIVE GONORRHEA, NAAT, URINE (test code = 55212) NEGATIVE Hans DuvalHCG, [id number] 00:00:00* Test Item Value Reference Range Interpretation Comme nts HCG, QUANTITATIVE (test code = 2506) 88558 MIU/ML Hans Conway AustinCT/NG, NAAT, [id number] 00:00:00* Test Item Value Reference Range Interpretation Comme nts CHLAMYDIA, NAAT, URINE (test code = 71412) NEGATIVE GONORRHEA, NAAT, URINE (test code = 32256) NEGATIVE Hans DuvalHCG, [id number] 00:00:00* Test Item Value Reference Range Interpretation Comme nts HCG, QUANTITATIVE (test code = 2506) 49630 MIU/ML Hans DuvalCT/NG, NAAT, [id number] 00:00:00* Test Item Value Reference Range Interpretation Comme nts CHLAMYDIA, NAAT, URINE (test code = 51560) NEGATIVE GONORRHEA, NAAT, URINE (test code = 25928) NEGATIVE Hans DuvalUS FIRST TRIMESTER LESS THAN 14 WEEKS WITH [id number] 03:57:52Exam: Less than 14 Weeks Ultrasound, 09/09/2024 9:15 PM. Ordering Physician: JUDI DOMINIQUE. History: abdominal pain during early concern for miscarriage orpossible ectopic . Comparison: None. Technique: Early (less than 14 weeks) obstetric ultrasound was obtainedtransabdominally. ?Transvaginal images were obtained for better evaluationof the early gestation and adnexa. Technical Quality: Adequate. Findings: Uterus measures 9.6 x 7.5 x 9.7 cm in size. There is a single intrauterine gestation. pole and yolk sac areidentified. ? pole crown-rump length measures 40 mm consistent withestimated gestational age of 11 weeks 0 days. ? heart rate is 163beats/min. Mean sac diameter is 5.3 cm consistent with estimated gestational age of 11weeks 2 days. Small of subchorionic hemorrhage involving less than 25% ofthe gestational sac. Ovaries are not visualized. There is no pelvic free fluid.[facility] [id number] 00:30:00* Test Item Value Reference Range Interpretation Comme nts POCT PREG (test code = 1605) Positive On board controls acceptable with C Line (test code = 3574) Yes POCT PREG LOT # (test code = 3575) [id number] POCT PREG TEST DATE ( test code = 3576) 08/18/2025 Lab Interpretation (test cod e = 72201-1) [facility] [id number] 00:00:00* Test Item Value Reference Range Interpretation Comme nts CHLAMYDIA, NAAT, URINE (test code = 68008) TEST NOT PERFORMED GONORRHEA, NAAT, URINE (test code = 05581) TEST NOT PERFORMED Hans F AustinCULTURE, URINE [ADDED]2024-09-10 00:00:00* Test Item Value Reference Range Interpretation Comme nts CULTURE, URINE (test code = 67720) SPECIMEN NUMBER: [id number] Hans F AustinCT/NG, NAAT, [id number] 00:00:00* Test Item Value Reference Range Interpretation Comme nts CHLAMYDIA, NAAT, URINE (test code = 68535) TEST NOT PERFORMED GONORRHEA, NAAT, URINE (test code = 36523) TEST NOT PERFORMED Hans F AustinCULTURE, URINE [ADDED]2024-09-10 00:00:00* Test Item Value Reference Range Interpretation Comme nts CULTURE, URINE (test code = 77659) SPECIMEN NUMBER: [id number] Hans F AustinCT/NG, NAAT, [id number] 00:00:00* Test Item Value Reference Range Interpretation Comme nts CHLAMYDIA, NAAT, URINE (test code = 44879) TEST NOT PERFORMED GONORRHEA, NAAT, URINE (test code = 22211) TEST NOT PERFORMED Hans F AustinCULTURE, URINE [ADDED]2024-09-10 00:00:00* Test Item Value Reference Range Interpretation Comme nts CULTURE, URINE (test code = 56397) SPECIMEN NUMBER: [id number] Hans F AustinCT/NG, NAAT, [id number] 00:00:00* Test Item Value Reference Range Interpretation Comme nts CHLAMYDIA, NAAT, URINE (test code = 68058) TEST NOT PERFORMED GONORRHEA, NAAT, URINE (test code = 23829) TEST NOT PERFORMED Hans Conway AustinCULTURE, URINE [ADDED]2024-09-10 00:00:00* Test Item Value Reference Range Interpretation Comme nts CULTURE, URINE (test code = 87600) SPECIMEN NUMBER: [id number] Hans Conway AustinCT/NG, NAAT, [id number] 00:00:00* Test Item Value Reference Range Interpretation Comme nts CHLAMYDIA, NAAT, URINE (test code = 00691) TEST NOT PERFORMED GONORRHEA, NAAT, URINE (test code = 80867) TEST NOT PERFORMED Hans Conway AustinCULTURE, URINE [ADDED]2024-09-10 00:00:00* Test Item Value Reference Range Interpretation Comme nts CULTURE, URINE (test code = 26254) SPECIMEN NUMBER: [id number] Hans Conway AustinCULTURE, URINE [ADDED]2024-09-10 00:00:00* Test Item Value Reference Range Interpretation Comme nts CULTURE, URINE (test code = 48826) SPECIMEN NUMBER: [id number] Hans Conway AustinCT/NG, NAAT, [id number] 00:00:00* Test Item Value Reference Range Interpretation Comme nts CHLAMYDIA, NAAT, URINE (test code = 06944) TEST NOT PERFORMED GONORRHEA, NAAT, URINE (test code = 74652) TEST NOT PERFORMED Hans Conway AustinNOTE: [ADDED]2024-09-08 00:00:00* Test Item Value Reference Range Interpretation Comme nts NOTE: (test code = 998) (NOTE) Hans Conway AustinNOTE: [ADDED]2024-09-08 00:00:00* Test Item Value Reference Range Interpretation Comme nts NOTE: (test code = 998) (NOTE) Hans Conway AustinNOTE: [ADDED]2024-09-08 00:00:00* Test Item Value Reference Range Interpretation Comme nts NOTE: (test code = 998) (NOTE) Hans Conway AustinNOTE: [ADDED]2024-09-08 00:00:00* Test Item Value Reference Range Interpretation Comme nts NOTE: (test code = 998) (NOTE) Hans Conway AustinNOTE: [ADDED]2024-09-08 00:00:00* Test Item Value Reference Range Interpretation Comme nts NOTE: (test code = 998) (NOTE) Hans Conway MukundNOTE: [ADDED]2024-09-08 00:00:00* Test Item Value Reference Range Interpretation Comme nts NOTE: (test code = 998) (NOTE) Hans Conway AustinVAGINAL PATHOGENS DNA [id number] 00:00:00* Test Item Value Reference Range Interpretation Comme nts SPIKE SPECIES (test code = 01462) NEGATIVE G. VAGINALIS (test code = 05786) NEGATIVE T. VAGINALIS (test code = 89594) NEGATIVE Hans Conway AustinVAGINAL PATHOGENS DNA [id number] 00:00:00* Test Item Value Reference Range Interpretation Comme nts SPIKE SPECIES (test code = 89934) NEGATIVE G. VAGINALIS (test code = 05520) NEGATIVE T. VAGINALIS (test code = 51959) NEGATIVE Hans Conway AustinVAGINAL PATHOGENS DNA [id number] 00:00:00* Test Item Value Reference Range Interpretation Comme nts SPIKE SPECIES (test code = 71384) NEGATIVE G. VAGINALIS (test code = 07028) NEGATIVE T. VAGINALIS (test code = 53031) NEGATIVE Hans DuvalVAGINAL PATHOGENS DNA [id number] 00:00:00* Test Item Value Reference Range Interpretation Comme nts SPIKE SPECIES (test code = 15893) NEGATIVE G. VAGINALIS (test code = 46423) NEGATIVE T. VAGINALIS (test code = 85262) NEGATIVE Hans Conway AustinVAGINAL PATHOGENS DNA [id number] 00:00:00* Test Item Value Reference Range Interpretation Comme nts SPIKE SPECIES (test code = 55475) NEGATIVE G. VAGINALIS (test code = 81085) NEGATIVE T. VAGINALIS (test code = 38069) NEGATIVE Hans Conway AustinVAGINAL PATHOGENS DNA [id number] 00:00:00* Test Item Value Reference Range Interpretation Comme nts SPIKE SPECIES (test code = 47280) NEGATIVE G. VAGINALIS (test code = 09078) NEGATIVE T. VAGINALIS (test code = 63215) NEGATIVE Hans DuvalCULTURE, [id number] 08:55:50SPECIMEN NUMBER: [id number] CULTURE, URINE SPECIMEN NUMBER: [id number] SOURCE: URINE REPORT STATUS: FINAL FINAL REPORT: 08/11/2024 NO GROWTHDRUG ABUSE SCREEN 10 REFLEX [id number] 02:36:59* Test Item Value Reference Range Interpretation Comme nts AMPHETAMINES (test code = 3201) NEGATIVE NEGATIVE BARBITURATES (test code = 3202) NEGATIVE NEGATIVE BENZODIAZEPINES (test code = 3203) NEGATIVE NEGATIVE CANNABINOIDS (test code = 3204) NEGATIVE NEGATIVE COCAINE METABOLITE (test code = 3205) NEGATIVE NEGATIVE OPIATES (test code = 3209) NEGATIVE NEGATIVE OXYCODONE (test code = 47398) NEGATIVE NEGATIVE PHENCYCLIDINE (test code = 3210) NEGATIVE NEGATIVE METHADONE (test code = 3207) NEGATIVE NEGATIVE BUPRENORPHINE (test code = 47162) NEGATIVE NEGATIVE SOURCE (test code = 212376) URINE SEE BELOW FO R THRESHOLDS AND IMPORTANT METHOD NOTES ANALYTE SCREENING CUTOFF CONFIRMATORY CUTOFF AMPHETAMINES 500 NG/ML 100 NG/MLBARBITURATES 200 NG/ML 100 NG/MLBENZODIAZEPINES 200 NG/ML 100 NG/MLCANNABINOIDS (THC) 20 NG/ML 15 NG/MLCOCAINE METABOLITES 150 NG/ML 100 NG/MLOPIATE METABOLITES 300 NG/ML 100 NG/MLOXYCODONE 100 NG/ML 100 NG/MLPHENCYCLIDINE (PCP) 25 NG/ML 25 NG/MLMETHADONE 300 NG/ML 100 NG/MLBUPRENORPHINE 5 NG/ML 5 NG/ML NOTE: Screening methodology is qualitative Enzyme Immunoassay.The screening method may be less sensitive for certain medicationsincluding clonazepam and lorazepam in the benzodiazepine assay andtramadol or fentanyl in the opiate assay, amongst others. Patientcompliance, hydration status, timing and dose of medications, drugabsorption and specimen quality may affect screening assay.For clinical discrepancies, consider directed testing for specificcompounds or contact the laboratory within specimen stability toforward for confirmatory testing. This test is specified for medicalpurposes only. It is not valid for forensic use. CULTURE, [id number] 00:00:00* Test Item Value Reference Range Interpretation Comme nts CULTURE, URINE (test code = 61510) SPECIMEN NUMBER: [id number] Hans Conway AustinDRUG ABUSE SCREEN 10 REFLEX [id number] 00:00:00* Test Item Value Reference Range Interpretation Comme nts AMPHETAMINES (test code = 3201) NEGATIVE BARBITURATES (test code = 3202) NEGATIVE BENZODIAZEPINES (test code = 3203) NEGATIVE CANNABINOIDS (test code = 3204) NEGATIVE COCAINE METABOLITE (test cod e = 3205) NEGATIVE OPIATES (test code = 3209) NEGATIVE OXYCODONE (test code = 48308) NEGATIVE PHENCYCLIDINE (test code = 3210) NEGATIVE METHADONE (test code = 3207) NEGATIVE BUPRENORPHINE (test code = 69528) NEGATIVE SOURCE (test code = 708297) URINE Hans Pedro, [id number] 00:00:00* Test Item Value Reference Range Interpretation Comme nts CULTURE, URINE (test code = 43851) SPECIMEN NUMBER: [id number] Hans Conway AustinDRUG ABUSE SCREEN 10 REFLEX [id number] 00:00:00* Test Item Value Reference Range Interpretation Comme nts AMPHETAMINES (test code = 3201) NEGATIVE BARBITURATES (test code = 3202) NEGATIVE BENZODIAZEPINES (test code = 3203) NEGATIVE CANNABINOIDS (test code = 3204) NEGATIVE COCAINE METABOLITE (test cod e = 3205) NEGATIVE OPIATES (test code = 3209) NEGATIVE OXYCODONE (test code = 90001) NEGATIVE PHENCYCLIDINE (test code = 3210) NEGATIVE METHADONE (test code = 3207) NEGATIVE BUPRENORPHINE (test code = 59372) NEGATIVE SOURCE (test code = 285775) URINE Hans Pedro, [id number] 00:00:00* Test Item Value Reference Range Interpretation Comme nts CULTURE, URINE (test code = 06934) SPECIMEN NUMBER: [id number] Hans Conway AustinDRUG ABUSE SCREEN 10 REFLEX [id number] 00:00:00* Test Item Value Reference Range Interpretation Comme nts AMPHETAMINES (test code = 3201) NEGATIVE BARBITURATES (test code = 3202) NEGATIVE BENZODIAZEPINES (test code = 3203) NEGATIVE CANNABINOIDS (test code = 3204) NEGATIVE COCAINE METABOLITE (test cod e = 3205) NEGATIVE OPIATES (test code = 3209) NEGATIVE OXYCODONE (test code = 75746) NEGATIVE PHENCYCLIDINE (test code = 3210) NEGATIVE METHADONE (test code = 3207) NEGATIVE BUPRENORPHINE (test code = 78889) NEGATIVE SOURCE (test code = 014792) URINE Hans Pedro, [id number] 00:00:00* Test Item Value Reference Range Interpretation Comme nts CULTURE, URINE (test code = 80679) SPECIMEN NUMBER: [id number] Hans Conway AustinDRUG ABUSE SCREEN 10 REFLEX [id number] 00:00:00* Test Item Value Reference Range Interpretation Comme nts AMPHETAMINES (test code = 3201) NEGATIVE BARBITURATES (test code = 3202) NEGATIVE BENZODIAZEPINES (test code = 3203) NEGATIVE CANNABINOIDS (test code = 3204) NEGATIVE COCAINE METABOLITE (test cod e = 3205) NEGATIVE OPIATES (test code = 3209) NEGATIVE OXYCODONE (test code = 59910) NEGATIVE PHENCYCLIDINE (test code = 3210) NEGATIVE METHADONE (test code = 3207) NEGATIVE BUPRENORPHINE (test code = 80958) NEGATIVE SOURCE (test code = 426352) URINE Hans Pedro, [id number] 00:00:00* Test Item Value Reference Range Interpretation Comme nts CULTURE, URINE (test code = 95728) SPECIMEN NUMBER: [id number] Hans Conway AustinDRUG ABUSE SCREEN 10 REFLEX [id number] 00:00:00* Test Item Value Reference Range Interpretation Comme nts AMPHETAMINES (test code = 3201) NEGATIVE BARBITURATES (test code = 3202) NEGATIVE BENZODIAZEPINES (test code = 3203) NEGATIVE CANNABINOIDS (test code = 3204) NEGATIVE COCAINE METABOLITE (test cod e = 3205) NEGATIVE OPIATES (test code = 3209) NEGATIVE OXYCODONE (test code = 04887) NEGATIVE PHENCYCLIDINE (test code = 3210) NEGATIVE METHADONE (test code = 3207) NEGATIVE BUPRENORPHINE (test code = 92632) NEGATIVE SOURCE (test code = 003904) URINE Hans OconnellLTAISHA, [id number] 00:00:00* Test Item Value Reference Range Interpretation Comme nts CULTURE, URINE (test code = 93238) SPECIMEN NUMBER: [id number] Hans Conway AustinDRUG ABUSE SCREEN 10 REFLEX [id number] 00:00:00* Test Item Value Reference Range Interpretation Comme nts AMPHETAMINES (test code = 3201) NEGATIVE BARBITURATES (test code = 3202) NEGATIVE BENZODIAZEPINES (test code = 3203) NEGATIVE CANNABINOIDS (test code = 3204) NEGATIVE COCAINE METABOLITE (test cod e = 3205) NEGATIVE OPIATES (test code = 3209) NEGATIVE OXYCODONE (test code = 87341) NEGATIVE PHENCYCLIDINE (test code = 3210) NEGATIVE METHADONE (test code = 3207) NEGATIVE BUPRENORPHINE (test code = 35273) NEGATIVE SOURCE (test code = 374235) URINE Hans DuvalCULTURE, [id number] 00:00:00* Test Item Value Reference Range Interpretation Comme nts CULTURE, URINE (test code = 76114) SPECIMEN NUMBER: [id number] Hans DuvalDRUG ABUSE SCREEN 10 REFLEX [id number] 00:00:00* Test Item Value Reference Range Interpretation Comme nts AMPHETAMINES (test code = 3201) NEGATIVE BARBITURATES (test code = 3202) NEGATIVE BENZODIAZEPINES (test code = 3203) NEGATIVE CANNABINOIDS (test code = 3204) NEGATIVE COCAINE METABOLITE (test cod e = 3205) NEGATIVE OPIATES (test code = 3209) NEGATIVE OXYCODONE (test code = 73714) NEGATIVE PHENCYCLIDINE (test code = 3210) NEGATIVE METHADONE (test code = 3207) NEGATIVE BUPRENORPHINE (test code = 60207) NEGATIVE SOURCE (test code = 696128) URINE Hans DuvalHEMOGLOBIN [id number] 16:40:13* Test Item Value Reference Range Interpretation Comme nts HEMOGLOBIN A1 (test code = 2575) 97.6 % 95.0-98.5 HEMOGLOBIN A2 (test code = 2576) 2.4 % 1.6-3.7 HEMOGLOBIN F () (test code = 2722) 0.0 % 0.0-2.0 HEMOGLOBIN S (test code = 2724) NONE % NONE DETECTED HEMOGLOBIN C (test code = 2726) NONE % NONE DETECTED OTHER HEMOGLOBIN VARIANT (test code = 27622) NONE DETEC % NONE DETECTED PATHOLOGIST'S INTERPRETATION (test code = 2577) (NOTE) NO ABNORMAL HEMOGLOBINS IDENTIFIED. DONAVON MONNIN, M.D. PAP TEST, THINPREP, [id number] 16:30:04* Test Item Value Reference Range Interpretation Comme nts SOURCE: (test code = 8001) Cervical SLIDES: (test code = 8011) 1 LMP: (test code = 8021) 06/25/2024 SPECIMEN ADEQUACY: (test code = 46710) (NOTE) Satisfactory for evaluation. Endocervical cells/transformation zone component not identified. INTERPRETATION: (test code = 13583) NILM/NO EPITH. ABNORMALITY;SEE BELOW --- - NEGATIVE FOR INTRAEPITHELIAL LESION OR MALIGNANCY (NILM) ---- DIRECTOR OF GRADUATE MEDICAL EDUCATION : (test code = 8101) REGULO MARIE(ASCP )[facility] LOCATION: (test code = 57933) (NOTE) Specimens proces sed and interpreted at [facility], [address] [place] [address], , CLIA: [id number] CPT: (test code = 8140) 58418, 29918, 47849, 80829 UNLESS OTHERWISE INDICATED, COMPUTER AIDED AND DIRECTOR OF GRADUATE MEDICAL EDUCATION SCREENING PERFORMED. The Pap test is a screening test with an inherent, but low probability of error. Your patient should be reminded to consult you immediately if she experiences any suspicious signs or symptoms, regardless of her Pap test result. An alternate report format containing images or consolidated prior Pap history is available as applicable. HPV HIGH RISK WITH GENOTYPE, [id number] 16:22:09* Test Item Value Reference Range Interpretation Comme nts HPV HIGH RISK INTERP (test code = 61867) NEGATIVE NEGATIVE HPV 16 (test code = 09916) NEGATIVE HPV 18 (test code = 58896) NEGATIVE HPV, HR, OTHER GENOTYPES (test code = 58173) NEGATIVE Testing methodol ogy is real-time PCR utilizing hydrolysis probes with the Carlo Ana system. The test individually detects genotypes 16 and 18, as well as the other 12 high risk types (31,33,35,39,45,51,52,56 ,58,59,66,68). The expected result is negative. A negative result does not rule out the presence of HPV not included in the genotype set, a low level of infection or specimen sampling error. VARICELLA ZOSTER [id number] 15:57:29* Test Item Value Reference Range Interpretation Comme nts VARICELLA ZOSTER IgG (test code = 57836) 221 INDEX SEE BELOW INTERPRETATI ON VZV IgG NEGATIVE . . . . . . . . . . . . INDEX <135 EQUIVOCAL. . . . . . . . . . . . INDEX 135-164 NOTE: CONSIDER RETESTING IN A CLINICALLY SUITABLE PERIOD OF TIME, NO SOONER THAN 1-2 WEEKS. POSITIVE . . . . . . . . . . . . INDEX >=165 VAGINAL PATHOGENS DNA [id number] 14:26:59* Test Item Value Reference Range Interpretation Comme nts SPIKE SPECIES (test code = 78338) NEGATIVE NEGATIVE G. VAGINALIS (test code = 93988) NEGATIVE NEGATIVE T. VAGINALIS (test code = 35075) NEGATIVE NEGATIVE Note: [facility] VPIII Microbial Identification Testis a DNA probe test intended for use in the detectionand identification of Spike species, Gardnerellavaginalis and Trichomonas vaginalis nucleic acid. UNLESS OTHERWISE INDICATED, ALL TESTING PERFORMED AT [facility] [address] [place] [address] VIDEO CONFERENCE SPECIALIST: TAYLOR NG M.D. CLIA NUMBER [id number] [facility] [place]. [id number] CT/NG, NAAT, [id number] 10:34:02* Test Item Value Reference Range Interpretation Comme nts CHLAMYDIA, NAAT, THINPREP (test code = 26894) NEGATIVE NEGATIVE A negative resul t does not exclude low level infection, specimensampling error, or collection error. Testing is performed with the Carlo Ana for[MD]0/8800 systems usingreal-time Polymerase Chain Reaction (PCR) method. GONORRHEA, NAAT, THINPREP (test code = 44218) NEGATIVE NEGATIVE A negative resul t does not exclude low level infection, specimensampling error, or collection error. Testing is performed with the Carlo Ana 6800/8800 systems usingreal-time Polymerase Chain Reaction (PCR) method. UNLESS OTHERWISE INDICATED, ALL TESTING PERFORMED AT [facility] [address] [place] [address] VIDEO CONFERENCE SPECIALIST: TAYLOR NG M.D. [place] NUMBER [id number] [facility] [place]. [id number] OBSTETRIC PANEL + [id number] 04:19:41* Test Item Value Reference Range Interpretation Comme nts WBC (test code = 1001) 12.7 K/UL 3.5-11.0 H RBC (test code = 1002) 4.05 M/UL 3.80-5.40 HEMOGLOBIN (test code = 1003) 11.7 G/DL 11.5-15.5 HEMATOCRIT (test code = 1004) 36.1 % 34.0-45.0 MCV (test code = 1005) 89.1 fL 80.0-99.0 MCH (test code = 1006) 28.9 PG 25.0-33.0 MCHC (test code = 1007) 32.4 G/DL 31.0-36.0 RDW (test code = 1038) 15.3 % 11.5-15.0 H NEUTROPHILS (test code = 1008) 79.1 % LYMPHOCYTES (test code = 1010) 14.9 % MONOCYTES (test code = 1011) 4.9 % EOSINOPHILS (test code = 1012) 0.2 % BASOPHILS (test code = 1013) 0.6 % IMMATURE GRANULOCYTES (test code = 1036) 0.3 % NUCLEATED RBCS (test code = 1065) 0.0 /100 WBC'S See_Comment [Automated me ssage] The system which generated this result transmitted reference range: 0.0. The reference range was not used to interpret this result as normal/abnormal. PLATELET COUNT (test code = 1015) 443 K/UL 130-400 H ABSOLUTE NEUTROPHILS (test code = 1066) 10.05 K/UL 1.50-7.50 H ABSOLUTE LYMPHOCYTES (test code = 1067) 1.89 K/UL 1.00-4.00 ABSOLUTE MONOCYTES (test code = 1068) 0.62 K/UL 0.20-1.00 ABSOLUTE EOSINOPHILS (test code = 1040) 0.03 K/UL 0.00-0.50 ABSOLUTE BASOPHILS (test code = 1069) 0.07 K/UL 0.00-0.20 ABS IMMATURE GRANULOCYTES (test code = 1020) 0.04 K/UL 0.00-0.10 ABS NUCLEATED RBCS (test code = 72457) 0.00 K/UL 0.00-0.11 BLOOD TYPE AND RH (test code = 3901) A POSITIVE A HISTORICAL RECORD CHECK FOR PREVIOUS RESULTS IS NOT PERFORMED.THESE RESULTS SHOULD BE CORRELATED WITH RESULTS OF PRIOR BLOODTYPING AND ANTIBODY SCREEN STUDIES. ANTIBODY SCREEN (test code = 3902) NEGATIVE NEGATIVE A HISTORICAL RECORD CHECK FOR PREVIOUS RESULTS IS NOT PERFORMED.THESE RESULTS SHOULD BE CORRELATED WITH RESULTS OF PRIOR BLOODTYPING AND ANTIBODY SCREEN STUDIES. RUBELLA ANTIBODY SCREEN (test code = 4600) 11 IU/ML SEE BELOW RUBELLA IgG INTERP (test code = 33937) REACTIVE REACTIVE INTERPRETATI ON UNITS RANGE NON-REACTIVE/NON-IMM UNE IU/ML <10 REACTIVE/IMMUNE IU/ML >=10 HEPATITIS B SURF AG (test code = 2739) NON-REACTIVE NON-REACTIVE RPR (test code = 15902) NON-REACTIVE NON-REACTIVE RPR TITER (test code = 3500) NOT INDIC. TITER NOT INDIC. HIV 1/2 4TH GEN, RFLX CONF (test code = 3514) NON-REACTIVE NON-REACTIVE HEPATITIS C REFLEX [id number] 04:19:41* Test Item Value Reference Range Interpretation Comme nts HEPATITIS C ANTIBODY (test c ode = 4675) NON-REACTIVE NON-REACTIVE VAGINAL PATHOGENS DNA [id number] 00:00:00* Test Item Value Reference Range Interpretation Comme nts SPIKE SPECIES (test code = 62438) NEGATIVE G. VAGINALIS (test code = 73597) NEGATIVE T. VAGINALIS (test code = 77256) NEGATIVE Hans F AustinPAP TEST, THINPREP, [id number] 00:00:00* Test Item Value Reference Range Interpretation Comme nts SOURCE: (test code = 8001) Cervical SLIDES: (test code = 8011) 1 LMP: (test code = 8021) 06/25/2024 SPECIMEN ADEQUACY: (test code = 05995) (NOTE) INTERPRETATION: (test code = 64777) NILM/NO EPITH. ABNORMALITY;SEE BELOW DIRECTOR OF GRADUATE MEDICAL EDUCATION: (test code = 8101) REGULO MARIE(ASCP)[facility] LOCATION: (test code = 06306) (NOTE) CPT: (test code = 8140) 00072, 41978, 87 491, 44138 Hans Conway AustinOBSTETRIC PANEL + [id number] 00:00:00* Test Item Value Reference Range Interpretation Comme nts WBC (test code = 1001) 12.7 K/UL RBC (test code = 1002) 4.05 M/UL HEMOGLOBIN (test code = 1003) 11.7 G/DL HEMATOCRIT (test code = 1004) 36.1 % MCV (test code = 1005) 89.1 fL MCH (test code = 1006) 28.9 PG MCHC (test code = 1007) 32.4 G/DL RDW (test code = 1038) 15.3 % NEUTROPHILS (test code = 1008) 79.1 % LYMPHOCYTES (test code = 1010) 14.9 % MONOCYTES (test code = 1011) 4.9 % EOSINOPHILS (test code = 1012) 0.2 % BASOPHILS (test code = 1013) 0.6 % IMMATURE GRANULOCYTES (test code = 1036) 0.3 % NUCLEATED RBCS (test code = 1065) 0.0 /100WBC'S PLATELET COUNT (test code = 1015) 443 K/UL ABSOLUTE NEUTROPHILS (test code = 1066) 10.05 K/UL ABSOLUTE LYMPHOCYTES (test code = 1067) 1.89 K/UL ABSOLUTE MONOCYTES (test code = 1068) 0.62 K/UL ABSOLUTE EOSINOPHILS (test code = 1040) 0.03 K/UL ABSOLUTE BASOPHILS (test code = 1069) 0.07 K/UL ABS IMMATURE GRANULOCYTES (test code = 1020) 0.04 K/UL ABS NUCLEATED RBCS (test code = 35594) 0.00 K/UL BLOOD TYPE AND RH (test code = 3901) A POSITIVE ANTIBODY SCREEN (test code = 3902) NEGATIVE RUBELLA ANTIBODY SCREEN (test code = 4600) 11 IU/ML RUBELLA IgG INTERP (test code = 01220) REACTIVE HEPATITIS B SURF AG (test code = 2739) NON-REACTIVE RPR (test code = 54696) NON-REACTIVE RPR TITER (test code = 3500) NOT INDIC. TITER HIV 1/2 4TH GEN, RFLX CONF (test code = 3514) NON-REACTIVE Hans Conway AustinHEPATITIS C REFLEX [id number] 00:00:00* Test Item Value Reference Range Interpretation Comme nts HEPATITIS C ANTIBODY (test c ode = 4675) NON-REACTIVE Hans DuvalHPV HIGH RISK WITH GENOTYPE, [id number] 00:00:00* Test Item Value Reference Range Interpretation Comme nts HPV HIGH RISK INTERP (test c ode = 89535) NEGATIVE HPV 16 (test code = 21973) NEGATIVE HPV 18 (test code = 01168) NEGATIVE HPV, HR, OTHER GENOTYPES (te st code = 31097) NEGATIVE Hans DuvalVARICELLA ZOSTER [id number] 00:00:00* Test Item Value Reference Range Interpretation Comme nts VARICELLA ZOSTER IgG (test c ode = 62122) 221 INDEX Hans Conway AustinCT/NG, NAAT, [id number] 00:00:00* Test Item Value Reference Range Interpretation Comme nts CHLAMYDIA, NAAT, THINPREP (t est code = 34054) NEGATIVE GONORRHEA, NAAT, THINPREP (t est code = 84637) NEGATIVE PDFE (test code = PDFReport) PDF Hans DuvalHEMOGLOBIN [id number] 00:00:00* Test Item Value Reference Range Interpretation Comme nts HEMOGLOBIN A1 (test code = 2575) 97.6 % HEMOGLOBIN A2 (test code = 2576) 2.4 % HEMOGLOBIN F () (test c ode = 2722) 0.0 % HEMOGLOBIN S (test code = 2724) NONE % HEMOGLOBIN C (test code = 2726) NONE % OTHER HEMOGLOBIN VARIANT (te st code = 30079) NONE DETEC % PATHOLOGIST'S INTERPRETATION (test code = 2577) (NOTE) Hans DuvalVAGINAL PATHOGENS DNA [id number] 00:00:00* Test Item Value Reference Range Interpretation Comme nts SPIKE SPECIES (test code = 87499) NEGATIVE G. VAGINALIS (test code = 37084) NEGATIVE T. VAGINALIS (test code = 08280) NEGATIVE Hans Conway AustinPAP TEST, THINPREP, [id number] 00:00:00* Test Item Value Reference Range Interpretation Comme nts SOURCE: (test code = 8001) Cervical SLIDES: (test code = 8011) 1 LMP: (test code = 8021) 06/25/2024 SPECIMEN ADEQUACY: (test code = 71554) (NOTE) INTERPRETATION: (test code = 64064) NILM/NO EPITH. ABNORMALITY;SEE BELOW DIRECTOR OF GRADUATE MEDICAL EDUCATION: (test code = 8101) REGULO MARIE(ASCP)[facility] LOCATION: (test code = 80906) (NOTE) CPT: (test code = 8140) 52482, 85829, 87 491, 63152 Hans Conway AustinOBSTETRIC PANEL + [id number] 00:00:00* Test Item Value Reference Range Interpretation Comme nts WBC (test code = 1001) 12.7 K/UL RBC (test code = 1002) 4.05 M/UL HEMOGLOBIN (test code = 1003) 11.7 G/DL HEMATOCRIT (test code = 1004) 36.1 % MCV (test code = 1005) 89.1 fL MCH (test code = 1006) 28.9 PG MCHC (test code = 1007) 32.4 G/DL RDW (test code = 1038) 15.3 % NEUTROPHILS (test code = 1008) 79.1 % LYMPHOCYTES (test code = 1010) 14.9 % MONOCYTES (test code = 1011) 4.9 % EOSINOPHILS (test code = 1012) 0.2 % BASOPHILS (test code = 1013) 0.6 % IMMATURE GRANULOCYTES (test code = 1036) 0.3 % NUCLEATED RBCS (test code = 1065) 0.0 /100WBC'S PLATELET COUNT (test code = 1015) 443 K/UL ABSOLUTE NEUTROPHILS (test code = 1066) 10.05 K/UL ABSOLUTE LYMPHOCYTES (test code = 1067) 1.89 K/UL ABSOLUTE MONOCYTES (test code = 1068) 0.62 K/UL ABSOLUTE EOSINOPHILS (test code = 1040) 0.03 K/UL ABSOLUTE BASOPHILS (test code = 1069) 0.07 K/UL ABS IMMATURE GRANULOCYTES (test code = 1020) 0.04 K/UL ABS NUCLEATED RBCS (test code = 97222) 0.00 K/UL BLOOD TYPE AND RH (test code = 3901) A POSITIVE ANTIBODY SCREEN (test code = 3902) NEGATIVE RUBELLA ANTIBODY SCREEN (test code = 4600) 11 IU/ML RUBELLA IgG INTERP (test code = 99938) REACTIVE HEPATITIS B SURF AG (test code = 2739) NON-REACTIVE RPR (test code = 16152) NON-REACTIVE RPR TITER (test code = 3500) NOT INDIC. TITER HIV 1/2 4TH GEN, RFLX CONF (test code = 3514) NON-REACTIVE Hans Conway AustinHEPATITIS C REFLEX [id number] 00:00:00* Test Item Value Reference Range Interpretation Comme nts HEPATITIS C ANTIBODY (test c ode = 4675) NON-REACTIVE Hans Conway AustinHPV HIGH RISK WITH GENOTYPE, [id number] 00:00:00* Test Item Value Reference Range Interpretation Comme nts HPV HIGH RISK INTERP (test c ode = 03364) NEGATIVE HPV 16 (test code = 24730) NEGATIVE HPV 18 (test code = 17845) NEGATIVE HPV, HR, OTHER GENOTYPES (te st code = 55813) NEGATIVE Hans DuvalVARICELLA ZOSTER [id number] 00:00:00* Test Item Value Reference Range Interpretation Comme nts VARICELLA ZOSTER IgG (test c ode = 47052) 221 INDEX Hans Conway AustinCT/NG, NAAT, [id number] 00:00:00* Test Item Value Reference Range Interpretation Comme nts CHLAMYDIA, NAAT, THINPREP (t est code = 14133) NEGATIVE GONORRHEA, NAAT, THINPREP (t est code = 94159) NEGATIVE PDFE (test code = PDFReport) PDF Hans Conway AustinHEMOGLOBIN [id number] 00:00:00* Test Item Value Reference Range Interpretation Comme nts HEMOGLOBIN A1 (test code = 2575) 97.6 % HEMOGLOBIN A2 (test code = 2576) 2.4 % HEMOGLOBIN F () (test c ode = 2722) 0.0 % HEMOGLOBIN S (test code = 2724) NONE % HEMOGLOBIN C (test code = 2726) NONE % OTHER HEMOGLOBIN VARIANT (te st code = 04353) NONE DETEC % PATHOLOGIST'S INTERPRETATION (test code = 2577) (NOTE) Hans Conway AustinVAGINAL PATHOGENS DNA [id number] 00:00:00* Test Item Value Reference Range Interpretation Comme nts SPIKE SPECIES (test code = 48501) NEGATIVE G. VAGINALIS (test code = 25546) NEGATIVE T. VAGINALIS (test code = 91814) NEGATIVE Hans DuvalPAP TEST, THINPREP, [id number] 00:00:00* Test Item Value Reference Range Interpretation Comme nts SOURCE: (test code = 8001) Cervical SLIDES: (test code = 8011) 1 LMP: (test code = 8021) 06/25/2024 SPECIMEN ADEQUACY: (test code = 34234) (NOTE) INTERPRETATION: (test code = 47671) NILM/NO EPITH. ABNORMALITY;SEE BELOW DIRECTOR OF GRADUATE MEDICAL EDUCATION: (test code = 8101) REGULO MARIE(ASCP)IAC LOCATION: (test code = 18427) (NOTE) CPT: (test code = 8140) 07192, 88066, 87 491, 37081 Hans DuvalOBSTETRIC PANEL + [id number] 00:00:00* Test Item Value Reference Range Interpretation Comme nts WBC (test code = 1001) 12.7 K/UL RBC (test code = 1002) 4.05 M/UL HEMOGLOBIN (test code = 1003) 11.7 G/DL HEMATOCRIT (test code = 1004) 36.1 % MCV (test code = 1005) 89.1 fL MCH (test code = 1006) 28.9 PG MCHC (test code = 1007) 32.4 G/DL RDW (test code = 1038) 15.3 % NEUTROPHILS (test code = 1008) 79.1 % LYMPHOCYTES (test code = 1010) 14.9 % MONOCYTES (test code = 1011) 4.9 % EOSINOPHILS (test code = 1012) 0.2 % BASOPHILS (test code = 1013) 0.6 % IMMATURE GRANULOCYTES (test code = 1036) 0.3 % NUCLEATED RBCS (test code = 1065) 0.0 /100WBC'S PLATELET COUNT (test code = 1015) 443 K/UL ABSOLUTE NEUTROPHILS (test code = 1066) 10.05 K/UL ABSOLUTE LYMPHOCYTES (test code = 1067) 1.89 K/UL ABSOLUTE MONOCYTES (test code = 1068) 0.62 K/UL ABSOLUTE EOSINOPHILS (test code = 1040) 0.03 K/UL ABSOLUTE BASOPHILS (test code = 1069) 0.07 K/UL ABS IMMATURE GRANULOCYTES (test code = 1020) 0.04 K/UL ABS NUCLEATED RBCS (test code = 07788) 0.00 K/UL BLOOD TYPE AND RH (test code = 3901) A POSITIVE ANTIBODY SCREEN (test code = 3902) NEGATIVE RUBELLA ANTIBODY SCREEN (test code = 4600) 11 IU/ML RUBELLA IgG INTERP (test code = 36291) REACTIVE HEPATITIS B SURF AG (test code = 2739) NON-REACTIVE RPR (test code = 47951) NON-REACTIVE RPR TITER (test code = 3500) NOT INDIC. TITER HIV 1/2 4TH GEN, RFLX CONF (test code = 3514) NON-REACTIVE Hans DuvalHPV HIGH RISK WITH GENOTYPE, [id number] 00:00:00* Test Item Value Reference Range Interpretation Comme nts HPV HIGH RISK INTERP (test c ode = 87813) NEGATIVE HPV 16 (test code = 96187) NEGATIVE HPV 18 (test code = 05843) NEGATIVE HPV, HR, OTHER GENOTYPES (te st code = 70328) NEGATIVE Hans DuvalHEPATITIS C REFLEX [id number] 00:00:00* Test Item Value Reference Range Interpretation Comme nts HEPATITIS C ANTIBODY (test c ode = 4675) NON-REACTIVE Hans DuvalCT/NG, NAAT, [id number] 00:00:00* Test Item Value Reference Range Interpretation Comme nts CHLAMYDIA, NAAT, THINPREP (t est code = 07629) NEGATIVE GONORRHEA, NAAT, THINPREP (t est code = 38955) NEGATIVE PDFE (test code = PDFReport) PDF Hans DuvalVARICELLA ZOSTER [id number] 00:00:00* Test Item Value Reference Range Interpretation Comme nts VARICELLA ZOSTER IgG (test c ode = 68780) 221 INDEX Hans DuvalHEMOGLOBIN [id number] 00:00:00* Test Item Value Reference Range Interpretation Comme nts HEMOGLOBIN A1 (test code = 9945) 97.6 % HEMOGLOBIN A2 (test code = 2576) 2.4 % HEMOGLOBIN F () (test c ode = 7060) 0.0 % HEMOGLOBIN S (test code = 5934) NONE % HEMOGLOBIN C (test code = 5006) NONE % OTHER HEMOGLOBIN VARIANT (te st code = 80821) NONE DETEC % PATHOLOGIST'S INTERPRETATION (test code = 2577) (NOTE) Hans DuvalVAGINAL PATHOGENS DNA [id number] 00:00:00* Test Item Value Reference Range Interpretation Comme nts SPIKE SPECIES (test code = 00565) NEGATIVE G. VAGINALIS (test code = ) NEGATIVE T. VAGINALIS (test code = ) NEGATIVE Hans DuvalPAP TEST, THINPREP, [id number] 00:00:00* Test Item Value Reference Range Interpretation Comme nts SOURCE: (test code = 8001) Cervical SLIDES: (test code = 8011) 1 LMP: (test code = 8021) 06/25/2024 SPECIMEN ADEQUACY: (test code = 26917) (NOTE) INTERPRETATION: (test code = 85890) NILM/NO EPITH. ABNORMALITY;SEE BELOW DIRECTOR OF GRADUATE MEDICAL EDUCATION: (test code = 8101) REGULO MARIE(ASCP)IAC LOCATION: (test code = 11540) (NOTE) CPT: (test code = 8140) 09144, 87456, 87 491, 32077 Hans DuvalOBSTETRIC PANEL + [id number] 00:00:00* Test Item Value Reference Range Interpretation Comme nts WBC (test code = 1001) 12.7 K/UL RBC (test code = 1002) 4.05 M/UL HEMOGLOBIN (test code = 1003) 11.7 G/DL HEMATOCRIT (test code = 1004) 36.1 % MCV (test code = 1005) 89.1 fL MCH (test code = 1006) 28.9 PG MCHC (test code = 1007) 32.4 G/DL RDW (test code = 1038) 15.3 % NEUTROPHILS (test code = 1008) 79.1 % LYMPHOCYTES (test code = 1010) 14.9 % MONOCYTES (test code = 1011) 4.9 % EOSINOPHILS (test code = 1012) 0.2 % BASOPHILS (test code = 1013) 0.6 % IMMATURE GRANULOCYTES (test code = 1036) 0.3 % NUCLEATED RBCS (test code = 1065) 0.0 /100WBC'S PLATELET COUNT (test code = 1015) 443 K/UL ABSOLUTE NEUTROPHILS (test code = 1066) 10.05 K/UL ABSOLUTE LYMPHOCYTES (test code = 1067) 1.89 K/UL ABSOLUTE MONOCYTES (test code = 1068) 0.62 K/UL ABSOLUTE EOSINOPHILS (test code = 1040) 0.03 K/UL ABSOLUTE BASOPHILS (test code = 1069) 0.07 K/UL ABS IMMATURE GRANULOCYTES (test code = 1020) 0.04 K/UL ABS NUCLEATED RBCS (test code = 50806) 0.00 K/UL BLOOD TYPE AND RH (test code = 3901) A POSITIVE ANTIBODY SCREEN (test code = 3902) NEGATIVE RUBELLA ANTIBODY SCREEN (test code = 4600) 11 IU/ML RUBELLA IgG INTERP (test code = 43030) REACTIVE HEPATITIS B SURF AG (test code = 2739) NON-REACTIVE RPR (test code = 54775) NON-REACTIVE RPR TITER (test code = 3500) NOT INDIC. TITER HIV 1/2 4TH GEN, RFLX CONF (test code = 3514) NON-REACTIVE Hans DuvalHPV HIGH RISK WITH GENOTYPE, [id number] 00:00:00* Test Item Value Reference Range Interpretation Comme frandy HPV HIGH RISK INTERP (test c ode = 54136) NEGATIVE HPV 16 (test code = 67735) NEGATIVE HPV 18 (test code = 25204) NEGATIVE HPV, HR, OTHER GENOTYPES (te st code = 13107) NEGATIVE Hans DuvalHEPATITIS C REFLEX [id number] 00:00:00* Test Item Value Reference Range Interpretation Comme nts HEPATITIS C ANTIBODY (test c ode = 4675) NON-REACTIVE Hans DuvalCT/NG, NAAT, [id number] 00:00:00* Test Item Value Reference Range Interpretation Comme nts CHLAMYDIA, NAAT, THINPREP (t est code = 41272) NEGATIVE GONORRHEA, NAAT, THINPREP (t est code = 51786) NEGATIVE PDFE (test code = PDFReport) PDF Hans DuvalVARICELLA ZOSTER [id number] 00:00:00* Test Item Value Reference Range Interpretation Comme nts VARICELLA ZOSTER IgG (test c ode = 72972) 221 INDEX Hans DuvalHEMOGLOBIN [id number] 00:00:00* Test Item Value Reference Range Interpretation Comme nts HEMOGLOBIN A1 (test code = 2575) 97.6 % HEMOGLOBIN A2 (test code = 2576) 2.4 % HEMOGLOBIN F () (test c ode = 2722) 0.0 % HEMOGLOBIN S (test code = 2724) NONE % HEMOGLOBIN C (test code = 2726) NONE % OTHER HEMOGLOBIN VARIANT (te st code = 93431) NONE DETEC % PATHOLOGIST'S INTERPRETATION (test code = 2577) (NOTE) Hans Conway AustinVAGINAL PATHOGENS DNA [id number] 00:00:00* Test Item Value Reference Range Interpretation Comme nts SPIKE SPECIES (test code = 94475) NEGATIVE G. VAGINALIS (test code = ) NEGATIVE T. VAGINALIS (test code = ) NEGATIVE Hans DuvalPAP TEST, THINPREP, [id number] 00:00:00* Test Item Value Reference Range Interpretation Comme nts SOURCE: (test code = 8001) Cervical SLIDES: (test code = 8011) 1 LMP: (test code = 8021) 06/25/2024 SPECIMEN ADEQUACY: (test code = 98245) (NOTE) INTERPRETATION: (test code = 73869) NILM/NO EPITH. ABNORMALITY;SEE BELOW DIRECTOR OF GRADUATE MEDICAL EDUCATION: (test code = 8101) REGULO MARIE(ASCP)IAC LOCATION: (test code = 38528) (NOTE) CPT: (test code = 8140) 03885, 71674, 87 491, 35004 Hans Conway AustinOBSTETRIC PANEL + [id number] 00:00:00* Test Item Value Reference Range Interpretation Comme nts WBC (test code = 1001) 12.7 K/UL RBC (test code = 1002) 4.05 M/UL HEMOGLOBIN (test code = 1003) 11.7 G/DL HEMATOCRIT (test code = 1004) 36.1 % MCV (test code = 1005) 89.1 fL MCH (test code = 1006) 28.9 PG MCHC (test code = 1007) 32.4 G/DL RDW (test code = 1038) 15.3 % NEUTROPHILS (test code = 1008) 79.1 % LYMPHOCYTES (test code = 1010) 14.9 % MONOCYTES (test code = 1011) 4.9 % EOSINOPHILS (test code = 1012) 0.2 % BASOPHILS (test code = 1013) 0.6 % IMMATURE GRANULOCYTES (test code = 1036) 0.3 % NUCLEATED RBCS (test code = 1065) 0.0 /100WBC'S PLATELET COUNT (test code = 1015) 443 K/UL ABSOLUTE NEUTROPHILS (test code = 1066) 10.05 K/UL ABSOLUTE LYMPHOCYTES (test code = 1067) 1.89 K/UL ABSOLUTE MONOCYTES (test code = 1068) 0.62 K/UL ABSOLUTE EOSINOPHILS (test code = 1040) 0.03 K/UL ABSOLUTE BASOPHILS (test code = 1069) 0.07 K/UL ABS IMMATURE GRANULOCYTES (test code = 1020) 0.04 K/UL ABS NUCLEATED RBCS (test code = 38228) 0.00 K/UL BLOOD TYPE AND RH (test code = 3901) A POSITIVE ANTIBODY SCREEN (test code = 3902) NEGATIVE RUBELLA ANTIBODY SCREEN (test code = 4600) 11 IU/ML RUBELLA IgG INTERP (test code = 45225) REACTIVE HEPATITIS B SURF AG (test code = 2739) NON-REACTIVE RPR (test code = 69781) NON-REACTIVE RPR TITER (test code = 3500) NOT INDIC. TITER HIV 1/2 4TH GEN, RFLX CONF (test code = 3514) NON-REACTIVE Hans DuvalHPV HIGH RISK WITH GENOTYPE, [id number] 00:00:00* Test Item Value Reference Range Interpretation Comme nts HPV HIGH RISK INTERP (test c ode = 17396) NEGATIVE HPV 16 (test code = 43828) NEGATIVE HPV 18 (test code = 42500) NEGATIVE HPV, HR, OTHER GENOTYPES (te st code = 68248) NEGATIVE Hans DuvalHEPATITIS C REFLEX [id number] 00:00:00* Test Item Value Reference Range Interpretation Comme nts HEPATITIS C ANTIBODY (test c ode = 4675) NON-REACTIVE Hans DuvalVARICELLA ZOSTER [id number] 00:00:00* Test Item Value Reference Range Interpretation Comme nts VARICELLA ZOSTER IgG (test c ode = 49146) 221 INDEX Hans Conway AustinCT/NG, NAAT, [id number] 00:00:00* Test Item Value Reference Range Interpretation Comme nts CHLAMYDIA, NAAT, THINPREP (t est code = 17013) NEGATIVE GONORRHEA, NAAT, THINPREP (t est code = 81751) NEGATIVE PDFE (test code = PDFReport) PDF Hans DuvalHEMOGLOBIN [id number] 00:00:00* Test Item Value Reference Range Interpretation Comme nts HEMOGLOBIN A1 (test code = 2575) 97.6 % HEMOGLOBIN A2 (test code = 2576) 2.4 % HEMOGLOBIN F () (test c ode = 2722) 0.0 % HEMOGLOBIN S (test code = 2724) NONE % HEMOGLOBIN C (test code = 2726) NONE % OTHER HEMOGLOBIN VARIANT (te st code = 44780) NONE DETEC % PATHOLOGIST'S INTERPRETATION (test code = 2577) (NOTE) Hans DuvalVAGINAL PATHOGENS DNA [id number] 00:00:00* Test Item Value Reference Range Interpretation Comme nts SPIKE SPECIES (test code = ) NEGATIVE G. VAGINALIS (test code = ) NEGATIVE T. VAGINALIS (test code = ) NEGATIVE Hans DuvalOBSTETRIC PANEL + [id number] 00:00:00* Test Item Value Reference Range Interpretation Comme nts WBC (test code = 1001) 12.7 K/UL RBC (test code = 1002) 4.05 M/UL HEMOGLOBIN (test code = 1003) 11.7 G/DL HEMATOCRIT (test code = 1004) 36.1 % MCV (test code = 1005) 89.1 fL MCH (test code = 1006) 28.9 PG MCHC (test code = 1007) 32.4 G/DL RDW (test code = 1038) 15.3 % NEUTROPHILS (test code = 1008) 79.1 % LYMPHOCYTES (test code = 1010) 14.9 % MONOCYTES (test code = 1011) 4.9 % EOSINOPHILS (test code = 1012) 0.2 % BASOPHILS (test code = 1013) 0.6 % IMMATURE GRANULOCYTES (test code = 1036) 0.3 % NUCLEATED RBCS (test code = 1065) 0.0 /100WBC'S PLATELET COUNT (test code = 1015) 443 K/UL ABSOLUTE NEUTROPHILS (test code = 1066) 10.05 K/UL ABSOLUTE LYMPHOCYTES (test code = 1067) 1.89 K/UL ABSOLUTE MONOCYTES (test code = 1068) 0.62 K/UL ABSOLUTE EOSINOPHILS (test code = 1040) 0.03 K/UL ABSOLUTE BASOPHILS (test code = 1069) 0.07 K/UL ABS IMMATURE GRANULOCYTES (test code = 1020) 0.04 K/UL ABS NUCLEATED RBCS (test code = 88070) 0.00 K/UL BLOOD TYPE AND RH (test code = 3901) A POSITIVE ANTIBODY SCREEN (test code = 3902) NEGATIVE RUBELLA ANTIBODY SCREEN (test code = 4600) 11 IU/ML RUBELLA IgG INTERP (test code = 87996) REACTIVE HEPATITIS B SURF AG (test code = 2739) NON-REACTIVE RPR (test code = 06109) NON-REACTIVE RPR TITER (test code = 3500) NOT INDIC. TITER HIV 1/2 4TH GEN, RFLX CONF (test code = 3514) NON-REACTIVE Hans DuvalPAP TEST, THINPREP, [id number] 00:00:00* Test Item Value Reference Range Interpretation Comme nts SOURCE: (test code = 8001) Cervical SLIDES: (test code = 8011) 1 LMP: (test code = 8021) 06/25/2024 SPECIMEN ADEQUACY: (test code = 60221) (NOTE) INTERPRETATION: (test code = 45315) NILM/NO EPITH. ABNORMALITY;SEE BELOW DIRECTOR OF GRADUATE MEDICAL EDUCATION: (test code = 8101) REGULO MARIE(ASCP)IAC LOCATION: (test code = 46858) (NOTE) CPT: (test code = 8140) 45114, 98045, 87 491, 31156 Hans Conway AustinHPV HIGH RISK WITH GENOTYPE, [id number] 00:00:00* Test Item Value Reference Range Interpretation Comme nts HPV HIGH RISK INTERP (test c ode = 86578) NEGATIVE HPV 16 (test code = 62248) NEGATIVE HPV 18 (test code = 87997) NEGATIVE HPV, HR, OTHER GENOTYPES (te st code = 23234) NEGATIVE Hans Conway MukundHEPATITIS C REFLEX [id number] 00:00:00* Test Item Value Reference Range Interpretation Comme nts HEPATITIS C ANTIBODY (test c ode = 4675) NON-REACTIVE Hans Conway AustinVARICELLA ZOSTER [id number] 00:00:00* Test Item Value Reference Range Interpretation Comme nts VARICELLA ZOSTER IgG (test c ode = 62301) 221 INDEX Hans DuvalCT/NG, NAAT, [id number] 00:00:00* Test Item Value Reference Range Interpretation Comme nts CHLAMYDIA, NAAT, THINPREP (t est code = 39481) NEGATIVE GONORRHEA, NAAT, THINPREP (t est code = 41043) NEGATIVE PDFE (test code = PDFReport) PDF Hans DuvalHEMOGLOBIN [id number] 00:00:00* Test Item Value Reference Range Interpretation Comme nts HEMOGLOBIN A1 (test code = 2575) 97.6 % HEMOGLOBIN A2 (test code = 2576) 2.4 % HEMOGLOBIN F () (test c ode = 2722) 0.0 % HEMOGLOBIN S (test code = 2724) NONE % HEMOGLOBIN C (test code = 2726) NONE % OTHER HEMOGLOBIN VARIANT (te st code = 55763) NONE DETEC % PATHOLOGIST'S INTERPRETATION (test code = 2577) (NOTE) Hans DuvalVAGINAL PATHOGENS DNA [id number] 00:00:00* Test Item Value Reference Range Interpretation Comme nts SPIKE SPECIES (test code = ) NEGATIVE G. VAGINALIS (test code = ) NEGATIVE T. VAGINALIS (test code = ) NEGATIVE Hans DuvalOBSTETRIC PANEL + [id number] 00:00:00* Test Item Value Reference Range Interpretation Comme nts WBC (test code = 1001) 12.7 K/UL RBC (test code = 1002) 4.05 M/UL HEMOGLOBIN (test code = 1003) 11.7 G/DL HEMATOCRIT (test code = 1004) 36.1 % MCV (test code = 1005) 89.1 fL MCH (test code = 1006) 28.9 PG MCHC (test code = 1007) 32.4 G/DL RDW (test code = 1038) 15.3 % NEUTROPHILS (test code = 1008) 79.1 % LYMPHOCYTES (test code = 1010) 14.9 % MONOCYTES (test code = 1011) 4.9 % EOSINOPHILS (test code = 1012) 0.2 % BASOPHILS (test code = 1013) 0.6 % IMMATURE GRANULOCYTES (test code = 1036) 0.3 % NUCLEATED RBCS (test code = 1065) 0.0 /100WBC'S PLATELET COUNT (test code = 1015) 443 K/UL ABSOLUTE NEUTROPHILS (test code = 1066) 10.05 K/UL ABSOLUTE LYMPHOCYTES (test code = 1067) 1.89 K/UL ABSOLUTE MONOCYTES (test code = 1068) 0.62 K/UL ABSOLUTE EOSINOPHILS (test code = 1040) 0.03 K/UL ABSOLUTE BASOPHILS (test code = 1069) 0.07 K/UL ABS IMMATURE GRANULOCYTES (test code = 1020) 0.04 K/UL ABS NUCLEATED RBCS (test code = 11243) 0.00 K/UL BLOOD TYPE AND RH (test code = 3901) A POSITIVE ANTIBODY SCREEN (test code = 3902) NEGATIVE RUBELLA ANTIBODY SCREEN (test code = 4600) 11 IU/ML RUBELLA IgG INTERP (test code = 55844) REACTIVE HEPATITIS B SURF AG (test code = 2739) NON-REACTIVE RPR (test code = 94094) NON-REACTIVE RPR TITER (test code = 3500) NOT INDIC. TITER HIV 1/2 4TH GEN, RFLX CONF (test code = 3514) NON-REACTIVE Hans DuvalPAP TEST, THINPREP, [id number] 00:00:00* Test Item Value Reference Range Interpretation Comme nts SOURCE: (test code = 8001) Cervical SLIDES: (test code = 8011) 1 LMP: (test code = 8021) 06/25/2024 SPECIMEN ADEQUACY: (test code = 71879) (NOTE) INTERPRETATION: (test code = 82116) NILM/NO EPITH. ABNORMALITY;SEE BELOW DIRECTOR OF GRADUATE MEDICAL EDUCATION: (test code = 8101) REGULO MARIE(ASCP)IAC LOCATION: (test code = 37358) (NOTE) CPT: (test code = 8140) 90619, 24070, 87 491, 61798 Hans Conway AustinHEPATITIS C REFLEX [id number] 00:00:00* Test Item Value Reference Range Interpretation Comme nts HEPATITIS C ANTIBODY (test c ode = 4675) NON-REACTIVE Hans Conway AustinHPV HIGH RISK WITH GENOTYPE, [id number] 00:00:00* Test Item Value Reference Range Interpretation Comme nts HPV HIGH RISK INTERP (test c ode = 08226) NEGATIVE HPV 16 (test code = 55743) NEGATIVE HPV 18 (test code = 25395) NEGATIVE HPV, HR, OTHER GENOTYPES (te st code = 62509) NEGATIVE Hans DuvalCT/NG, NAAT, [id number] 00:00:00* Test Item Value Reference Range Interpretation Comme nts CHLAMYDIA, NAAT, THINPREP (t est code = 59935) NEGATIVE GONORRHEA, NAAT, THINPREP (t est code = 10049) NEGATIVE PDFE (test code = PDFReport) PDF Hans DuvalVARICELLA ZOSTER [id number] 00:00:00* Test Item Value Reference Range Interpretation Comme nts VARICELLA ZOSTER IgG (test c ode = 55382) 221 INDEX Hans DuvalHEMOGLOBIN [id number] 00:00:00* Test Item Value Reference Range Interpretation Comme nts HEMOGLOBIN A1 (test code = 2575) 97.6 % HEMOGLOBIN A2 (test code = 2576) 2.4 % HEMOGLOBIN F () (test c ode = 2722) 0.0 % HEMOGLOBIN S (test code = 2724) NONE % HEMOGLOBIN C (test code = 2726) NONE % OTHER HEMOGLOBIN VARIANT (te st code = 30694) NONE DETEC % PATHOLOGIST'S INTERPRETATION (test code = 2577) (NOTE) Hans Duff. Metabolic Panel (08623)[id number] 02:05:09* Test Item Value Reference Range Interpretation Comme nts NA (test code = 0313531716) 136 mmol/L 135-145 K (test code = 3713997613) 3.8 mmol/L 3.5-5.0 CL (test code = 3798096711) 102 mmol/L 98-108 CO2 TOTAL (test code = 6962495260) 21 mmol/L 23-31 L AGAP (test code = 1544028243) 13 2-16 BUN (test code = 7654375123) 8 mg/dL 7-23 GLUCOSE (test code = 4114186333) 99 mg/dL 70-110 CREATININE (test code = 2160-0) 0.53 mg/dL 0.50-1.04 TOTAL BILI (test code = 3406983062) 0.3 mg/dL 0.1-1.1 CALCIUM (test code = 0356823284) 9.0 mg/dL 8.6-10.6 T PROTEIN (test code = 3100280514) 7.8 g/dL 6.3-8.2 ALBUMIN (test code = 8720001386) 4.3 g/dL 3.5-5.0 ALK PHOS (test code = 9622992096) 52 U/L 34-122 ALTv (test code = 1742-6) 15 U/L 5-35 AST(SGOT) (test code = 0959399219) 18 U/L 13-40 eGFR (test code = 77997-5) 120.1 mL/min/1.73m2 CKD-EPI eGFR (2020). Assuming creatinine has been stable day-to-day for at least three months, the eGFR indicates Category G1 (>= 90 mL/min/1.73 m2) Lab Interpretation (test code = 57771-7) [facility]04:[facility]* Test Item Value Reference Range Interpretation Comme nts LIPASE (test code = 9428946295) 82 U/L 0-220 Lab Interpretation (test cod e = 10790-6) Normal [facility] with [id number] 01:51:48* Test Item Value Reference Range Interpretation Comme nts WBC (test code = 6690-2) 7.34 4.30-11.10 RBC (test code = 789-8) 3.77 3.93-5.25 L HGB (test code = 718-7) 11.0 g/dL 11.6-15.0 L HCT (test code = 4544-3) 33.7 % 35.7-45.2 L MCV (test code = 787-2) 89.4 fL 80.6-95.5 MCH (test code = 785-6) 29.2 pg 25.9-32.8 MCHC (test code = 786-4) 32.6 g/dL 31.6-35.1 RDW-SD (test code = 39150-8) 51.0 fL 39.0-49.9 H RDW-CV (test code = 788-0) 15.6 % 12.0-15.5 H PLT (test code = 777-3) 358 166-358 MPV (test code = 10857-6) 10.2 fL 9.5-12.9 NRBC/100 WBC (test code = 2847388681) 0.0 0.0-10.0 NRBC x10^3 (test code = 1355032968) See_Comment [Automated [facility]] The system which generated this result transmitted reference range: 10*3/?L. The reference range was not used to interpret this result as normal/abnormal. GRAN MAT (NEUT) % (test code = 770-8) 62.0 % IMM GRAN % (test code = 5765171412) 0.40 % LYMPH % (test code = 736-9) 20.6 % MONO % (test code = 5905-5) 15.8 % EOS % (test code = 713-8) 0.7 % BASO % (test code = 706-2) 0.5 % GRAN MAT x10^3(ANC) (test code = 2719083671) 4.55 10*3/uL 1.88-7.09 IMM GRAN x10^3 (test code = 8533078156) 0.03 10*3/uL 0.00-0.06 LYMPH x10^3 (test code = 731-0) 1.51 10*3/uL 1.32-3.29 MONO x10^3 (test code = 742-7) 1.16 10*3/uL 0.33-0.92 H EOS x10^3 (test code = 711-2) 0.05 10*3/uL 0.03-0.39 BASO x10^3 (test code = 704-7) 0.04 10*3/uL 0.01-0.07 Lab Interpretation (test code = 85311-9) [facility] [id number] 01:39:29* Test Item Value Reference Range Interpretation Comme nts LACTIC ACID (test code = 6632074352) 0.84 mmol/L 0.50-2.20 Lab Interpretation (test cod e = 12453-1) Normal [facility] FIRST TRIMESTER LESS THAN 14 WEEKS WITH [id number] 01:35:06Exam: Ultrasound Pelvis and Transvaginal Ultrasound, 44:30 PM. Ordering Physician: JUDI DOMINIQUE. History: concern for ectopic . Comparison: None. Technique: Early (less than 14 weeks) obstetric ultrasound was obtainedtransabdominally. ?Transvaginal images were obtained for better evaluationof the early gestation and adnexa. Technical Quality: Adequate. Findings: The uterus measures 9.8 cm. Unremarkable myometrium. Endometrial thicknessof 16 mm. Stable small gestational sac with a mean sac diameter of 0.4 cm.A yolk sac or pole is not identified. Right ovary measures 2.4 x 1.8 x 1.5 cm in size. ?Left ovary measures 2.6 x2.2 x 1.8 cm in size. ?Both ovaries demonstrate normal color and pulsedDoppler flow. Left-sided corpus luteal cyst incidentally noted. There is no pelvic free fluid.[facility]24-[facility] 23:55:00* Test Item Value Reference Range Interpretation Comme nts POCT PREG (test code = 1605) Positive On board controls acceptable with C Line (test code = 3574) Yes POCT PREG LOT # (test code = 3575) [id number] POCT PREG TEST DATE ( test code = 3576) 09/25/2025 Lab Interpretation (test cod e = 78253-4) [facility], [id number] 00:00:00* Test Item Value Reference Range Interpretation Comme nts HCG, QUANTITATIVE (test code = 2506) 1204 MIU/ML Hans F AustinHCG, [id number] 00:00:00* Test Item Value Reference Range Interpretation Comme nts HCG, QUANTITATIVE (test code = 2506) 1204 MIU/ML Hans Zoraida AustinHCG, [id number] 00:00:00* Test Item Value Reference Range Interpretation Comme nts HCG, QUANTITATIVE (test code = 2506) 1204 MIU/ML Hans F AustinHCG, [id number] 00:00:00* Test Item Value Reference Range Interpretation Comme nts HCG, QUANTITATIVE (test code = 2506) 1204 MIU/ML Hans Zoraida AustinHCG, [id number] 00:00:00* Test Item Value Reference Range Interpretation Comme nts HCG, QUANTITATIVE (test code = 2506) 1204 MIU/ML Hans DuvalHCG, [id number] 00:00:00* Test Item Value Reference Range Interpretation Comme nts HCG, QUANTITATIVE (test code = 2506) 1204 MIU/ML Hans DuvalHCG, [id number] 00:00:00* Test Item Value Reference Range Interpretation Comme nts HCG, QUANTITATIVE (test code = 2506) 1204 MIU/ML Hans DuvalHCG, [id number] 00:00:00* Test Item Value Reference Range Interpretation Comme nts HCG, QUANTITATIVE (test code = 2506) 1204 MIU/ML Hans Conway [place] [id number] 18:14:42EXAM: XR CHEST 2 01/31/2024 12:38 PM HISTORY: 38 years-old Female with sob COMPARISON: none FINDINGS: Lungs: The lungs are well-expanded and clear. No focal opacities. Nopleural abnormalities are detected. Heart/Mediastinum: The cardiomediastinal silhouette is normal in size. Musculoskeletal: No acute osseous abnormality.[facility] [id number] 16:37:00* Test Item Value Reference Range Interpretation Comme nts POCT PREG (test code = 1605) Negative On board controls acceptable with C Line (test code = 3574) Yes POCT PREG LOT # (test code = 3575) [id number] POCT PREG TEST DATE ( test code = 3576) 12-19-2024 Lab Interpretation (test cod e = 67201-2) Normal [facility] BETA HCG [id number] 22:54:27* Test Item Value Reference Range Interpretation Comme nts BETA HCG (test code = 0257354820) 41.96 See_Comment [Automated [employer]] The system which generated this result transmitted reference range: Non- female and male patients: <5 mIU/mL. The reference range was not used to interpret this result as normal/abnormal. EDDI (test code = EDDI) Gestational Age ?Range (mIU/mL) 1-10 ?Weeks ?[id number] Weeks ?80508-02060067-35 Weeks ?4993-07332079-80 Weeks ?3506-127109 Biotin has been reported to cause a negative bias, interpret results relative to patient's use of biotin. [facility]. METABOLIC PANEL (05399)2023-08-14 22:02:02* Test Item Value Reference Range Interpretation Comme nts NA (test code = 0379162669) 139 mmol/L 135-145 K (test code = 8954300382) 3.5 mmol/L 3.5-5.0 CL (test code = 6837752539) 101 mmol/L 98-108 CO2 TOTAL (test code = 9389075409) 24 mmol/L 23-31 AGAP (test code = 3402205766) 14 2-16 BUN (test code = 4685666563) 12 mg/dL 7-23 GLUCOSE (test code = 2480551481) 96 mg/dL 70-110 CREATININE (test code = 0560949666) 0.63 mg/dL 0.50-1.04 TOTAL BILI (test code = 3447235132) 0.3 mg/dL 0.1-1.1 CALCIUM (test code = 6762751056) 9.4 mg/dL 8.6-10.6 T PROTEIN (test code = 7825370902) 8.2 g/dL 6.3-8.2 ALBUMIN (test code = 0973242578) 4.5 g/dL 3.5-5.0 ALK PHOS (test code = 0223920413) 57 U/L 34-122 ALTv (test code = 1742-6) 16 U/L 5-35 AST(SGOT) (test code = 2862217603) 23 U/L 13-40 eGFR (test code = 2528982710) 105.2 mL/min/1.73m2 EDDI (test code = EDDI) Association of Glomerular Filtration Rate (GFR) and Staging of Kidney Disease* + + +- +| GFR (mL/min/1.73 m2) ?| With Kidney Damage ?| ?Without Kidney Damage+ ------+ ----+ ------+| ?>90 ?| ?Stage one ?| ? Normal ?+ -+ + -+| ?60-89 ?| ?Stage two ?| ? Decreased GFR ? + + +- +| ?30-59 ?| ?Stage three ?| ? Stage three ? + + +- +| ?15-29 ?| ?Stage four ? | ? Stage four ?+ -+ + -+| ?<15 (or dialysis) ? ?| ?Stage five ? | ? Stage five ?+ -+ + -+ *Each stage assumes the associated GFR level [...] or urine or abnormalities in imaging tests). [facility] WITH [id number] 21:43:40* Test Item Value Reference Range Interpretation Comme nts WBC (test code = 6690-2) 8.96 See_Comment [Automated [employer]] The system which generated this result transmitted reference range: 4.30 - 11.10 10*3/?L. The reference range was not used to interpret this result as normal/abnormal. RBC (test code = 789-8) 3.65 See_Comment L [[employer]] The system which generated this result transmitted reference range: 3.93 - 5.25 10*6/?L. The reference range was not used to interpret this result as normal/abnormal. HGB (test code = 718-7) 12.2 g/dL 11.6-15.0 HCT (test code = 4544-3) 34.4 % 35.7-45.2 L MCV (test code = 787-2) 94.2 fL 80.6-95.5 MCH (test code = 785-6) 33.4 pg 25.9-32.8 H MCHC (test code = 786-4) 35.5 g/dL 31.6-35.1 H RDW-SD (test code = 80654-1) 43.4 fL 39.0-49.9 RDW-CV (test code = 788-0) 12.5 % 12.0-15.5 PLT (test code = 777-3) 369 See_Comment H [Automated messa ge] The system which generated this result transmitted reference range: 166 - 358 10*3/?L. The reference range was not used to interpret this result as normal/abnormal. MPV (test code = 67089-3) 9.3 fL 9.5-12.9 L NRBC/100 WBC (test code = 1034077026) 0.0 See_Comment [Automated [employer] ssage] The system which generated this result transmitted reference range: 0.0 - 10.0 /100 WBCs. The reference range was not used to interpret this result as normal/abnormal. NRBC x10^3 (test code = 7568713498) See_Comment [Automated messa ge] The system which generated this result transmitted reference range: 10*3/?L. The reference range was not used to interpret this result as normal/abnormal. GRAN MAT (NEUT) % (test code = 770-8) 54.9 % IMM GRAN % (test code = 7086934838) 0.20 % LYMPH % (test code = 736-9) 32.3 % MONO % (test code = 5905-5) 10.2 % EOS % (test code = 713-8) 1.8 % BASO % (test code = 706-2) 0.6 % GRAN MAT x10^3(ANC) (test code = 9486587739) 4.93 10*3/uL 1.88-7.09 IMM GRAN x10^3 (test code = 0666974189) 0.00-0.06 LYMPH x10^3 (test code = 731-0) 2.89 10*3/uL 1.32-3.29 MONO x10^3 (test code = 742-7) 0.91 10*3/uL 0.33-0.92 EOS x10^3 (test code = 711-2) 0.16 10*3/uL 0.03-0.39 BASO x10^3 (test code = 704-7) 0.05 10*3/uL 0.01-0.07 Lab Interpretation (test code = 33034-1) [facility]normal [facility] - ONCE [id number] 21:41:00 * Test Item Value Reference Range Interpretation Comme nts ABO & RH (test code = 20) A Positive IAT (test code = 1185) Negative [facility] URINALYSIS GLUCOSE & [id number] 17:50:00* Test Item Value Reference Range Interpretation Comme nts POCT U PROT (test code = 3259) negative Negative - Negat saeid POCT U GLU (test code = 3256) negative Negative - Negati ve Lab Interpretation (test cod e = 73950-6) Normal [facility] URINALYSIS GLUCOSE & [id number] 17:50:00* Test Item Value Reference Range Interpretation Comme nts POCT U PROT (test code = 3259) negative Negative - Negat saeid POCT U GLU (test code = 3256) negative Negative - Negati ve Lab Interpretation (test cod e = 55017-5) [facility] [id number] 19:33:07* Test Item Value Reference Range Interpretation Comme nts BETA HCG (test code = 3715978599) 1148.50 See_Comment [Automated [employer]] The system which generated this result transmitted reference range: Non- female and male patients: <5 mIU/mL. The reference range was not used to interpret this result as normal/abnormal. EDDI (test code = EDDI) Gestational Age ?Range (mIU/mL) 1-10 ?Weeks ?76-14416426-42 Weeks ?91339-82862658-87 Weeks ?3934-16136662-77 Weeks ?8297-227952 Biotin has been reported to cause a negative bias, interpret results relative to patient's use of biotin. [facility] MOLECULAR [id number] 16:31:56* Test Item Value Reference Range Interpretation Comme nts POCT Molecular Strep (test c ode = 83211-4) Negative Negative Lab Interpretation (test cod e = 52880-6) Normal [facility] SARS-COV-2 ANTIGEN (BINAX NOW)2023-07-25 16:28:00* Test Item Value Reference Range Interpretation Comme nts POCT SARS-COV-2 ANTIGEN (test code = 52725-1) Not Detected Not Detected On board controls acceptable with C Line (test code = 3574) Yes EDDI (test code = EDDI) accurate developme nt and interpretation of all internal controls Lab Interpretation (test code = 14325-2) Normal [facility] URINALYSIS W/O SPECIFIC [id number] 13:11:00* Test Item Value Reference Range Interpretation Comme nts POCT PH U (test code = 3254) 5 mg/dl 5-8 POCT U LEUK EST (test code = 3263) 1+ Negative - Negative POCT U NIT (test code = 3262) positive Negative - Negati ve POCT U PROT (test code = 3259) trace Negative - Negat saeid POCT U GLU (test code = 3256) neg Negative - Negati ve POCT U KETONE (test code = 3258) neg Negative - Neg ative POCT U BLD (test code = 3257) trace Negative - Negati ve [facility] [id number] 13:10:00* Test Item Value Reference Range Interpretation Comme nts POCT PREG (test code = 1605) Positive On board controls acceptable with C Line (test code = 3574) Yes POCT PREG LOT # (test code = 3575) POCT PREG TEST DATE ( test code = 3576) [facility], [id number] 09:20:37* Test Item Value Reference Range Interpretation Comme nts HCG, QUANTITATIVE (test code = 2506) 72 MIU/ML SEE BELOW EXPEC JENNY VALUES FOR HCG GST.AGE UNITS RANGE GST. AGE UNITS RANGE3 WEEKS MIU/ML 6-71 10 WEEKS MIU/ML 46,509-186,9774 WEEKS MIU/ML 10-750 12 WEEKS MIU/ML 27,832-210,6125 WEEKS MIU/ML 217-7,138 14 WEEKS MIU/ML 13,950-62,5306 WEEKS MIU/ML 158-31,795 15 WEEKS MIU/ML 12,039-70,9717 WEEKS MIU/ML 3,697-163,563 16 WEEKS MIU/ML 9,040-56,4518 WEEKS MIU/ML 32,065-149,571 17 WEEKS MIU/ML 8,175-55,8689 WEEKS MIU/ML 63,803-151,410 18 WEEKS MIU/ML 8,099-58,176MALES and NON- FEMALES . . . . . . . . MIU/ML 5-0LCFM-KMPLSISBOO FEMALES . . . . . . . . . . . . MIU/ML <=7 UNLESS OTHERWISE INDICATED, ALL TESTING PERFORMED AT [facility] [address] [place] [address] VIDEO CONFERENCE SPECIALIST: TAYOLR NG M.D. CLIA NUMBER [id number] [facility] [place]. [id number] HCG, [id number] 00:00:00* Test Item Value Reference Range Interpretation Comme nts HCG, QUANTITATIVE (test code = 2506) 73 MIU/ML [facility] F AustinHCG, [id number] 00:00:00* Test Item Value Reference Range Interpretation Comme nts HCG, QUANTITATIVE (test code = 2506) 73 MIU/ML Hans F AustinHCG, [id number] 00:00:00* Test Item Value Reference Range Interpretation Comme nts HCG, QUANTITATIVE (test code = 2506) 73 MIU/ML Hans F AustinHCG, [id number] 00:00:00* Test Item Value Reference Range Interpretation Comme nts HCG, QUANTITATIVE (test code = 2506) 73 MIU/ML Hans F AustinHCG, [id number] 00:00:00* Test Item Value Reference Range Interpretation Comme nts HCG, QUANTITATIVE (test code = 2506) 73 MIU/ML Hans F AustinHCG, [id number] 00:00:00* Test Item Value Reference Range Interpretation Comme nts HCG, QUANTITATIVE (test code = 2506) 73 MIU/ML Hans F AustinHCG, [id number] 00:00:00* Test Item Value Reference Range Interpretation Comme nts HCG, QUANTITATIVE (test code = 2506) 73 MIU/ML Hans DuvalHCG, [id number] 00:00:00* Test Item Value Reference Range Interpretation Comme nts HCG, QUANTITATIVE (test code = 2506) 73 MIU/ML Hans DuvalCOMP. METABOLIC PANEL (47079)2022 04:09:31* Test Item Value Reference Range Interpretation Comme nts NA (test code = 6891733980) 137 mmol/L 135-145 K (test code = 4587066414) 4.1 mmol/L 3.5-5 CL (test code = 1802791445) 100 mmol/L 98-108 CO2 TOTAL (test code = 8214637115) 27 mmol/L 23-31 AGAP (test code = 6625631786) 2-16 BUN (test code = 1163434166) 3 mg/dL 7-23 L GLUCOSE (test code = 1950245014) 102 mg/dL 70-110 CREATININE (test code = 0645142472) 0.57 mg/dL 0.5-1.04 TOTAL BILI (test code = 6013327214) 0.4 mg/dL 0.1-1.1 CALCIUM (test code = 5863883659) 9.5 mg/dL 8.6-10.6 T PROTEIN (test code = 0313022076) 7.2 g/dL 6.3-8.2 ALBUMIN (test code = 1610961979) 4.5 g/dL 3.5-5 ALK PHOS (test code = 5997194767) 52 U/L 34-122 ALTv (test code = 1742-6) 18 U/L 5-35 AST(SGOT) (test code = 9219089365) 22 U/L 13-40 eGFR (test code = 2148589169) mL/min/1.73m2 EDDI (test code = EDDI) Association [...] imaging tests). Lab Interpretation (test code = 18050-3) Abnormal [facility] 04:09:11* Test Item Value Reference Range Interpretation Comme nts LIPASE (test code = 9645872710) 217 U/L 0-220 Lab Interpretation (test cod e = 79090-2) Normal [facility] WITH [id number] 03:51:52* Test Item Value Reference Range Interpretation Comme nts WBC (test code = 6690-2) See_Comment [Automated [employer]] The system which generated this result transmitted reference range: 4.30 - 11.10 10*3/?L. The reference range was not used to interpret this result as normal/abnormal. RBC (test code = 789-8) See_Comment L [Automated [employer]] The system which generated this result transmitted reference range: 3.93 - 5.25 10*6/?L. The reference range was not used to interpret this result as normal/abnormal. HGB (test code = 718-7) 11.6 g/dL 11.6-15 HCT (test code = 4544-3) 34.5 % 35.7-45.2 L MCV (test code = 787-2) 89.1 fL 80.6-95.5 MCH (test code = 785-6) 30.0 pg 25.9-32.8 MCHC (test code = 786-4) 33.6 g/dL 31.6-35.1 RDW-SD (test code = 45195-1) 45.9 fL 39-49.9 RDW-CV (test code = 788-0) 14.2 % 12-15.5 PLT (test code = 777-3) See_Comment H [Automated messa ge] The system which generated this result transmitted reference range: 166 - 358 10*3/?L. The reference range was not used to interpret this result as normal/abnormal. MPV (test code = 01266-4) 10.8 fL 9.5-12.9 NRBC/100 WBC (test code = 2907492146) See_Comment [Automated [employer]age] The system which generated this result transmitted reference range: 0.0 - 10.0 /100 WBCs. The reference range was not used to interpret this result as normal/abnormal. NRBC x10^3 (test code = 0973250090) See_Comment [Automated [employer]] The system which generated this result transmitted reference range: 10*3/?L. The reference range was not used to interpret this result as normal/abnormal. GRAN MAT (NEUT) % (test code = 770-8) 61.2 % IMM GRAN % (test code = 1484727103) 0.30 % LYMPH % (test code = 736-9) 25.2 % MONO % (test code = 5905-5) 11.8 % EOS % (test code = 713-8) 0.7 % BASO % (test code = 706-2) 0.8 % GRAN MAT x10^3(ANC) (test code = 3119356280) 4.61 10*3/uL 1.88-7.09 IMM GRAN x10^3 (test code = 0396775440) 0-0.06 LYMPH x10^3 (test code = 731-0) 1.90 10*3/uL 1.32-3.29 MONO x10^3 (test code = 742-7) 0.89 10*3/uL 0.33-0.92 EOS x10^3 (test code = 711-2) 0.05 10*3/uL 0.03-0.39 BASO x10^3 (test code = 704-7) 0.06 10*3/uL 0.01-0.07 Lab Interpretation (test code = 23383-6) Abnormal [facility] METABOLIC PANEL (NA, K, CL, CO2, GLUCOSE, BUN, CREATININE, CA)2022-06-28 06:58:09* Test Item Value Reference Range Interpretation Comme nts NA (test code = 9796349836) 137 mmol/L 135-145 K (test code = 5553442913) 3.8 mmol/L 3.5-5 CL (test code = 1035258119) 102 mmol/L 98-108 CO2 TOTAL (test code = 6423016123) 26 mmol/L 23-31 AGAP (test code = 5272870340) 2-16 BUN (test code = 0678389021) 5 mg/dL 7-23 L GLUCOSE (test code = 0303534102) 102 mg/dL 70-110 CREATININE (test code = 4005073291) 0.63 mg/dL 0.5-1.04 CALCIUM (test code = 7677185761) 9.5 mg/dL 8.6-10.6 eGFR (test code = 7881404779) mL/min/1.73m2 EDDI (test code = EDDI) Association [...] imaging tests). Lab Interpretation (test code = 97324-1) Abnormal [facility] CenterHEPAT[facility]CTION PAN[facility] (47692) (ALB,T.PRO,BILI T,BU/BC,ALT,AST,ALK PHOS)2022-06-28 06:58:09* Test Item Value Reference Range Interpretation Comme nts TOTAL BILI (test code = 0354318108) 0.5 mg/dL 0.1-1.1 BILI UNCON (test code = 2592370626) 0.5 mg/dL 0.1-1.1 BILI CONJ (test code = 3399870878) 0.0 mg/dL 0-0.3 T PROTEIN (test code = 5519480396) 7.9 g/dL 6.3-8.2 ALBUMIN (test code = 3093426613) 4.6 g/dL 3.5-5 ALK PHOS (test code = 6988620505) 61 U/L 34-122 ALTv (test code = 1742-6) 17 U/L 5-35 AST(SGOT) (test code = 3583682487) 21 U/L 13-40 Lab Interpretation (test cod e = 34770-2) Normal [facility] 06:58:09* Test Item Value Reference Range Interpretation Comme nts LIPASE (test code = 2376618099) 265 U/L 0-220 H Lab Interpretation (test cod e = 15583-7) Abnormal [facility]Y TEST, [id number] 06:55:40* Test Item Value Reference Range Interpretation Comme nts PREG SERUM (test code = 4652145339) Negative EDDI (test code = EDDI) Less than 10 IU/L. ?If low titer or ectopic is suspected, resubmit specimen in 48-72 hours. [facility] WITH [id number] 06:23:28* Test Item Value Reference Range Interpretation Comme nts WBC (test code = 6690-2) See_Comment [Automated messa ge] The system which generated this result transmitted reference range: 4.30 - 11.10 10*3/?L. The reference range was not used to interpret this result as normal/abnormal. RBC (test code = 789-8) See_Comment L [Automated messa ge] The system which generated this result transmitted reference range: 3.93 - 5.25 10*6/?L. The reference range was not used to interpret this result as normal/abnormal. HGB (test code = 718-7) 11.6 g/dL 11.6-15 HCT (test code = 4544-3) 33.9 % 35.7-45.2 L MCV (test code = 787-2) 88.1 fL 80.6-95.5 MCH (test code = 785-6) 30.1 pg 25.9-32.8 MCHC (test code = 786-4) 34.2 g/dL 31.6-35.1 RDW-SD (test code = 90908-1) 45.2 fL 39-49.9 RDW-CV (test code = 788-0) 14.4 % 12-15.5 PLT (test code = 777-3) See_Comment H [Automated messa ge] The system which generated this result transmitted reference range: 166 - 358 10*3/?L. The reference range was not used to interpret this result as normal/abnormal. MPV (test code = 81366-4) 10.3 fL 9.5-12.9 NRBC/100 WBC (test code = 4401982195) See_Comment [Automated me ssage] The system which generated this result transmitted reference range: 0.0 - 10.0 /100 WBCs. The reference range was not used to interpret this result as normal/abnormal. NRBC x10^3 (test code = 1012154821) See_Comment [Automated messa ge] The system which generated this result transmitted reference range: 10*3/?L. The reference range was not used to interpret this result as normal/abnormal. GRAN MAT (NEUT) % (test code = 770-8) 63.9 % IMM GRAN % (test code = 5476095969) 0.40 % LYMPH % (test code = 736-9) 24.7 % MONO % (test code = 5905-5) 10.1 % EOS % (test code = 713-8) 0.5 % BASO % (test code = 706-2) 0.4 % GRAN MAT x10^3(ANC) (test code = 7036078834) 4.94 10*3/uL 1.88-7.09 IMM GRAN x10^3 (test code = 4113376131) 0.03 10*3/uL 0-0.06 LYMPH x10^3 (test code = 731-0) 1.91 10*3/uL 1.32-3.29 MONO x10^3 (test code = 742-7) 0.78 10*3/uL 0.33-0.92 EOS x10^3 (test code = 711-2) 0.04 10*3/uL 0.03-0.39 BASO x10^3 (test code = 704-7) 0.03 10*3/uL 0.01-0.07 Lab Interpretation (test code = 27091-1) Abnormal [facility] CenterL[facility] Acid Whole [id number] 06:20:08* Test Item Value Reference Range Interpretation Comme nts LACTIC ACID (test code = 5481153362) 0.90 mmol/L 0.5-2.2 QUES Lab Interpretation (test cod e = 87736-9) Normal [facility]"
--- NOTE | 2024-10-29 16:01 | RAD REPORT ---
EXAMINATION: US OB Limited COMPARISON: None. HISTORY: [facility] MAIN Abd pain;Abd cramping, Bed: TECHNIQUE: Real-time ultrasound of the pelvis was performed transabdominally. FINDINGS: There is a single living intrauterine . Fetus mainly in cephalic presentation. Placenta is f orming posteriorly. There is no visible abnormal collections. Both ovaries are not well visualized. Cervical canal measures 4.2 cm in length, and appears well apposed There is no free fluid in the cul-de-sac. Measurements and Calculations: Femur length 2.53 centimeters, consistent with a sonographic age of 17 weeks, 5 days. The patient's L MP dates are not stated. heart rate: 151 BPM. Amniotic fluid volume subjectively within normal limits. IMPRESSION: Single living intrauterine , with a composite sonographic age of 17 weeks, 5 days. No suspic ious findings.
--- NOTE | 2024-10-29 16:02 | RAD REPORT ---
EXAMINATION: US Abdomen Exam Limited CLINICAL HISTORY: [facility] MAIN Y Abd cramping, ;Abd pain Bed: COMPARISON: 07/01/2022. TECHNIQUE: Limited upper abdominal grayscale and color flow sonographic images. FINDINGS: Gallbladder: Normal. No evidence of wall thickening, gallstones, or positive sonographic Hendrix's sig n. Bile ducts: No intrahepatic or extrahepatic biliary dilatation. Common bile duct measures 4 mm. Liver: Visualized portions of the liver demonstrate normal echogenicity with no suspicious findings. Fluid: No ascites. IMPRESSION: No abnormalities on right upper quadrant ultrasound.
--- NOTE | 2024-10-29 16:04 | RAD REPORT ---
EXAMINATION: US RETROPERITONEUM CLINICAL INDICATION: [facility] MAIN PAIN TECHNIQUE: Real-time ultrasonography of the abdomen was performed. COMPARISON: 07/01/2022 FINDINGS: RIGHT KIDNEY: Right renal length measurement: 10.5 cm. Normal in echogenicity and size. No calculus, solid mass or echogenic calculi. Mildly prominent right renal pelvis measuring 9 mm in AP diameter. LEFT KIDNEY: Left renal length measurement: 10.8 cm. Normal in echogenicity and size. No calculus, so lid mass or hydronephrosis. URINARY BLADDER: Normal. ADDITIONAL FINDINGS: None. IMPRESSION: Mildly prominent right renal pelvis measuring 9 mm in AP diameter. This is favored to relate to mass effect by the gravid uterus. Follow-up ultrasound after delivery would be helpful to ensure resolution, if there is persistent clinical concern. No other acute or significant abnormalities.
[2024-10-29] MEDS ORDERED: ACETAMINOPHEN 325 MG TABLET ONE (16:26)
[2024-10-29 16:37] LABS: Absolute Eosinophils 0.1 K/uL (0-0.5); Absolute Monocytes 0.8 K/uL (0.1-1.3); Absolute Neutrophil 10.6 K/uL (1.8-8.0); Basophils % 0.3 % (0-1.3); Eosinophils % 0.6 % (0-4.4); Hematocrit 33.4 % (36.0-45.0); Hemoglobin 11.7 g/dL (12.0-15.0); MCH 32.4 pg (27.0-35.0); MCHC 34.9 g/dL (32.0-36.0); MPV 7.8 fL (7.6-11.3); Neutrophils % 78.1 % (41.7-73.7); Platelets 334 thou/uL (152-406); Red Cell Distribution Width 15.3 % (12.1-15.2)
[2024-10-29 16:40] LABS: Specific Gravity 1.006 (1.005-1.030); Sqamous Epithelial <5 /HPF (None Seen); Urine Bacteria <20 /HPF (<20); Urine Bilirubin NEGATIVE (Negative); Urine Blood Negative (Negative); Urine Clarity Extremely Turbid (Clear); Urine Color Colorless (Yellow); Urine Crystals Unidentified Few /HPF (None Seen); Urine Culture Reflex Order NOT NEEDED; Urine Glucose NEGATIVE (Negative); Urine Ketones NEGATIVE (Negative); Urine Microscopic Reflex YN ORDER UMIC; Urine Mucus Slight /HPF (None Seen); Urine Nitrite NEGATIVE (Negative); Urine Protein NEGATIVE (Negative); Urine RBC <5 /HPF (None Seen); Urine Urobilinogen Normal (Normal); Urine Yeast (Budding) Trace /HPF (None Seen); Urine pH 7.5 (5.0-7.0)
[2024-10-29 16:50] LABS: Albumin 2.8 g/dL (3.4-5.0); Albumin/Globulin Ratio 0.7 (1.1-1.8); Anion Gap 11.5 mEq/L (5.0-15.0); Bilirubin Total 0.2 mg/dL (0.2-1.0); Globulin 4.2 g/dL (2.3-3.5); Potassium 3.5 mEq/L (3.5-5.1)
--- NOTE | 2024-10-29 17:21 | ER ---
Nurse's Notes [facility] Name: Jennifer Stoddard Age: 39 yrs Sex: Female : 1985 Arrival Date: 10/29/2024 Time: 14:03 Bed 7 Private MD: Diagnosis: Low back pain;Encounter for supervision of normal , unspecified, second trimester Presentation: 10/29 14:58 Chief complaint: Patient states: BACK PAIN AND PELVIC PAIN X2 DAYS. PT APPROXIMATELY 18 cm10 WEEKS . Coronavirus screen: Client denies travel out of the [place] in the last 14 days. Ebola Screen: Patient denies travel to an Ebola-affected area in the 21 days before illness onset. No symptoms or risks identified at this time. Initial Sepsis Screen: Does the patient meet any 2 criteria? No. Patient's initial sepsis screen is negative. Does the patient have a suspected source of infection? No. Patient's initial sepsis screen is negative. Risk Assessment: Do you want to hurt yourself or someone else? Patient reports no desire to harm self or others. Onset of symptoms was October 29, 2024. 14:58 Method Of Arrival: Ambulatory cm10 14:58 Acuity: ANIVAL 3 cm10 Triage Assessment: 15:00 General: Appears in no apparent distress. comfortable, Behavior is calm, cooperative. cm10 Respiratory: No deficits noted. Airway is patent Respiratory effort is even, unlabored, Respiratory pattern is regular, symmetrical. 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 - Infectious Disease History:: Denies. - Family history:: not pertinent. - Social history:: Smoking status: Patient denies any tobacco usage or history of. - Hospitalizations: : No recent hospitalization is reported. Screenin:00 [facility] ED Fall Risk Assessment (Adult) History of falling in the last 3 months, aa5 including since admission No falls in past 3 months (0 pts) Confusion or Disorientation No (0 pts) Intoxicated or Sedated No (0 pts) Impaired Gait No (0 pts) Mobility Assist Device Used No (0 pt) Altered Elimination No (0 pt) Score/Fall Risk Level 0 - 2 = Low Risk Oriented to surroundings, Maintained a safe environment, Educated pt \T\ family on fall prevention, incl call for assistance when getting out of bed. Abuse screen: Denies threats or abuse. Nutritional screening: No deficits noted. Tuberculosis screening: No symptoms or risk factors identified. Assessment: 14:46 General: PT IN ULTRASOUND.. cm10 16:00 General: Appears uncomfortable, Behavior is calm, cooperative. General: Reports aa5 positive movement. Pain: Complains of pain in right lower quadrant and left lower quadrant and lower back Pain currently is 8 out of 10 on a pain scale. Pain began 2 days ago. Neuro: Level of Consciousness is awake, alert, obeys commands, Oriented to person, place, time, situation. Cardiovascular: Patient's skin is warm and dry. Respiratory: Airway is patent Respiratory effort is even, unlabored, Respiratory pattern is regular, symmetrical. GI: Abdomen is round Reports nausea, Patient currently denies vomiting. : Denies burning with urination, inability to void, vaginal bleeding. EENT: No signs and/or symptoms were reported regarding the EENT system. Derm: Skin is pink, warm \T\ dry. Musculoskeletal: Range of motion: intact in all extremities. 17:00 Reassessment: Patient is alert, oriented x 3, equal unlabored respirations, skin aa5 warm/dry/pink. 18:25 Reassessment: Patient is alert, oriented x 3, equal unlabored respirations, skin aa5 warm/dry/pink. Vital Signs: 14:58 BP 126 / 86; Pulse 83; Resp 16; Temp 98.4(O); Pulse Ox 100% ; Weight 63.96 kg; Height 5 cm10 ft. 0 in. ; Pain 8/10; 17:00 BP 126 / 82; Pulse 88; Resp 16 S; Pulse Ox 100% on R/A; aa5 18:00 BP 122 / 78; Pulse 87; Resp 18 S; Pulse Ox 99% on R/A; aa5 14:58 Body Mass Index 27.54 (63.96 kg, 152.4 cm) cm10 14:58 Pain Scale: Adult cm10 ED Course: 14:09 Patient arrived in ED. mr 14:09 Norman Luther MD is Attending Physician. rn 14:57 US OB Limited In Process Unspecified. EDMS 14:57 Abdomen Exam Limited In Process Unspecified. EDMS 14:58 Renal Ultrasound-Complete In Process Unspecified. EDMS 15:00 Triage completed. cm10 15:00 Arm band placed on right wrist. Patient placed in waiting room. cm10 15:51 Katlyn Carmichael, RN is Primary Nurse. aa5 16:00 Patient has correct armband on for positive identification. Bed in low position. Call aa5 light in reach. Side rails up X 1. Pulse ox on. NIBP on. 16:10 Urine collected: clean catch specimen, clear, sent to lab. aa5 16:15 Initial lab(s) drawn, by me, sent to lab. Inserted saline lock: 20 gauge in right aa5 antecubital area, using aseptic technique. Blood collected. Flushed with 10 mL NS. 18:07 No provider procedures requiring assistance completed. aa5 18:25 IV discontinued, intact, bleeding controlled, No redness/swelling at site. Pressure aa5 dressing applied. Administered Medications: 16:30 Drug: Acetaminophen PO 325 mg PO once Route: PO; aa5 18:34 Follow up: Response: No adverse reaction aa5 18:34 Drug: Cephalexin PO 500 mg PO once Route: PO; aa5 18:34 Follow up: Response: Medication administered at discharge. aa5 Medication: 18:07 VIS not applicable for this client. aa5 Outcome: 17:20 Discharge ordered by . rn 18:25 Discharged to home ambulatory, aa5 18:25 Condition: stable 18:25 Discharge instructions given to patient, Instructed on discharge instructions, follow up and referral plans. medication usage, Demonstrated understanding of instructions, follow-up care, medications, Prescriptions given X 1, 18:34 Patient left the ED. aa5 Signatures: Dispatcher [employer] [facility] SeguraVicky, Reg Reg Norman Luther MD MD rn Calderon, Audri, RN RN aa5 Joanne Contreras RN RN 10 Corrections: (The following items were deleted from the chart) 1217 10:14 12/16 16:00 : Denies burning with urination, inability to void, aa5 aa5
--- NOTE | 2024-10-29 17:21 | EDPHYS ---
Physician Documentation [facility] Name: Jennifer Stoddard Age: 39 yrs Sex: Female : 1985 Arrival Date: 10/29/2024 Time: 14:03 Bed 7 Private MD: ED Physician Norman Luther HPI: 10/29 14:22 This 39 yrs old Female presents to ER via Unassigned with complaints of 18 wks rn , Back Pain. 14:22 The patient presents with pain that is acute, with no known mechanism of injury. The rn symptoms are located in the low back. Onset: The symptoms/episode began/occurred 2 day(s) ago. Modifying factors: The patient symptoms are alleviated by nothing, the patient symptoms are aggravated by any movement. Severity of symptoms: At their worst the symptoms were moderate, in the emergency department the symptoms are unchanged. The patient has not experienced similar symptoms in the past. Patient reports 2 days of lower back pain, suprapubic pain. No fever or chills. Reports increased urinary frequency. No hematuria. No trauma. No chest pain. No vaginal bleeding or leakage of fluid.. 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 - Infectious Disease History:: Denies. - Family history:: not pertinent. - Social history:: Smoking status: Patient denies any tobacco usage or history of. - Hospitalizations: : No recent hospitalization is reported. ROS: 14:22 Constitutional: Negative for fever, chills, and weight loss, Neck: Negative for injury, rn pain, and swelling, Cardiovascular: Negative for chest pain, palpitations, and edema, Respiratory: Negative for shortness of breath, cough, wheezing, and pleuritic chest pain, Abdomen/GI: Positive for abdominal pain Back: Negative for injury. Reports lower back pain. : Positive for increased urinary frequency MS/Extremity: Negative for injury and deformity, Neuro: Negative for headache, weakness, numbness, tingling, and seizure, Exam: 14:22 Constitutional: This is a well developed, well nourished patient who is awake, alert, rn and in no acute distress. Cardiovascular: Regular rate and rhythm. No pulse deficits. Respiratory: No increased work of breathing, no retractions or nasal flaring. Abdomen/GI: Soft, suprapubic tenderness. Negative right lower quadrant tenderness. No peritoneal signs. Negative Hendrix Back: No spinal tenderness. No costovertebral tenderness. MS/ Extremity: Pulses equal, no cyanosis. Neuro: Awake and alert, GCS 15 Vital Signs: 14:58 BP 126 / 86; Pulse 83; Resp 16; Temp 98.4(O); Pulse Ox 100% ; Weight 63.96 kg; Height 5 cm10 ft. 0 in. ; Pain 8/10; 17:00 BP 126 / 82; Pulse 88; Resp 16 S; Pulse Ox 100% on R/A; aa5 18:00 BP 122 / 78; Pulse 87; Resp 18 S; Pulse Ox 99% on R/A; aa5 14:58 Body Mass Index 27.54 (63.96 kg, 152.4 cm) cm10 14:58 Pain Scale: Adult cm10 MDM: 14:10 Medical Screening Exam initiated rn 17:17 Differential diagnosis: ruptured disc, sprain, Ureterolithiasis Urinary tract rn infection. Data reviewed: vital signs, nurses notes, lab test result(s), radiologic studies, ultrasound. 17:18 Counseling: I had a detailed discussion with the patient and/or guardian regarding the rn historical points, exam findings, and any diagnostic results supporting the discharge/admit diagnosis, lab results, radiology results, the need for outpatient follow up, to return to the emergency department if symptoms worsen or persist or if there are any questions or concerns that arise at home. Response to treatment: the patient's symptoms have mildly improved after treatment, and as a result, I will discharge patient. ED course: Ultrasound shows mild renal pelvis swelling on the right side, no evidence of stone, no blood in urine to indicate stone. Will treat as possible urinary tract infection and could be secondary to uterus compression on the right side. No right lower quadrant tenderness or fever to indicate emergent need for MRI of abdomen and MRI not available at this time. Recommend antibiotics, and return if symptoms worsen. Also recommend follow-up with her OB doctor.. 10/29 14:21 Order name: CBC with Diff; Complete Time: 17:02 rn 10/29 14:21 Order name: CMP; Complete Time: 17:02 rn 10/29 14:21 Order name: Lipase; Complete Time: 17:02 rn 10/29 14:21 Order name: Urinalysis w/ reflexes; Complete Time: 17:02 rn 10/29 14:21 Order name: US OB Limited; Complete Time: 16:07 rn 10/29 14:29 Order name: Abdomen Exam Limited; Complete Time: 16:07 EDMS 10/29 14:31 Order name: Renal Ultrasound-Complete; Complete Time: 16:07 EDMS 10/29 14:21 Order name: IV Saline Lock; Complete Time: 16:23 rn 10/29 14:21 Order name: Labs collected and sent; Complete Time: 16:23 rn Administered Medications: 16:30 Drug: Acetaminophen PO 325 mg PO once Route: PO; aa5 18:34 Follow up: Response: No adverse reaction aa5 18:34 Drug: Cephalexin PO 500 mg PO once Route: PO; aa5 18:34 Follow up: Response: Medication administered at discharge. aa5 Disposition Summary: 10/29/24 17:20 Discharge Ordered Notes: Location: Home rn Problem: new rn Symptoms: have improved rn Condition: Stable rn Diagnosis - Low back pain rn - Encounter for supervision of normal , unspecified, second trimester rn Followup: rn - With: Private Physician - When: 1 - 2 days - Reason: Recheck today's complaints, Re-evaluation by your physician Discharge Instructions: - Discharge Summary Sheet rn - Pain Without a Known Cause rn - Back Pain in rn Forms: - Medication Reconciliation Form rn - Antibiotic rn clinical research - Prescription Opioid Use rn - Patient Portal Instructions rn - Leadership Thank You Letter rn Prescriptions: - Cephalexin 500 mg Oral Capsule - take 1 capsule ORAL route every 12 hours for 10 days; 20 capsule; Refills: 0, rn Product Selection Permitted Signatures: Dispatcher [employer] EDMS Norman Luther MD MD rn Calderon, Audri RN RN aa5 Joanne Contreras RN RN cm10 Corrections: (The following items were deleted from the chart) 14:29 14:22 Abdomen Complete+US.RAD.BRZ ordered. EDMS EDMS
[2024-10-29] MEDS ORDERED: CEPHALEXIN 250 MG CAP ONE (18:20)
[2024-10-29 19:25] VITALS: TEMP 98.4; O2SAT 100
[2024-10-29 19:27] VITALS: BP 126/82
== END 2024-10-29 18:34 | disposition home or self-care (01) ==
LOC: ER 14:03
DX: O26.892 Other specified pregnancy related conditions, second trimester (principal); Z3A.18 18 weeks gestation of pregnancy
CPT/HCPCS: 36415; 76705; 76770; 76815; 80053; 81001; 83690; 85025; 99284